=== PATIENT | female | born 1935 | race Caucasian/White ===

== ENCOUNTER → 2016-06-16 | Outpatient (CLI) | payer MEDICAID, MEDICARE ==
[~2016-06-16] MED LIST: REGADENOSON INJ 0.4 MG/5 ML DISP.SYRIN IV ONE
--- NOTE | 2016-06-16 20:49 | DRAGON STRESS TEST REPORT ---
Intravenous Lexiscan Cardiolite stress test using single photon emmision computerized tomography. Date of procedure: 06/16/2016. Ordering Provider: Dr. Vince Olivarez. Patient's status: Outpatient. Indication: Exertional Dyspnea.. Coronary risk factors: Age, hypertension, dyslipidemia, tobacco abuse disorder, history of the peripheral arterial disease , and family history of coronary artery disease/NM. Resting EKG: Sinus Rhythm. Within Normal Limits. Stress EKG: No changes of ischemia. The patient transient chest pressure without EKG changes. This was relieved with with Pepsi. There were no arrhythmias seen. Reason for termination: Protocol. Conclusions: Normal EKG and hemodynamic response to IV Lexiscan. Nuclear data: At rest the patient was given 10.46 millicuries of technetium 99m sestamibi injected intravenously. As per protocol rest non gated SPECT images were obtained. Subsequently the patient was given intravenous Lexiscan at a dose of 0.4 mg in 5 mL intravenously, followed by flush with normal saline. Subsequently the stress dose of 31.9 millicuries of technetium 99m sestamibi was injected intravenously. As per protocol stress gated images were obtained. Nuclear interpretation: Review of images showed that there was bowel contamination artifact of the inferior wall. But in spite of this all segments of the myocardium had normal perfusion at rest, and normal perfusion post stress with IV Lexiscan. All segments of the myocardium had normal motion, contraction, and thickening by gated study. T. I D. ratio was normal at 1.04. Computer read rest, and stress left ventricular ejection fraction were 74 %, and 73 %, respectively. Conclusion: 1. There is no scintigraphic evidence of Lexiscan induced myocardial ischemia. 2. There is no scintigraphic evidence of myocardial infarction/scar. Recommendations: Aggressive risk factor modification, and treating the underlying co- morbidities. MTDD
== END ==
LOC: RAD 07:23
PROVIDERS: ATTEND Internal Medicine
DX: R06.09 Other forms of dyspnea (principal)
CPT/HCPCS: 93017; 78452; A9500; J2785; Q9969

== ENCOUNTER → 2016-08-03 | Outpatient (CLI) | payer MEDICARE ==
[2016-08-03 17:35] LABS: ABSOLUTE BASOPHILS # (AUTO) 0.1 10^3/uL (0.0-0.2); ABSOLUTE EOSINOPHILS # (AUTO) 0.9 10^3/uL (0.0-0.6); ABSOLUTE LYMPHOCYTES (AUTO) 1.2 10^3/uL (0.5-4.7); ABSOLUTE MONOCYTES (AUTO) 0.4 10^3/uL (0.1-1.4); ABSOLUTE NEUT (AUTO) 2.6 10^3/uL (1.7-8.2); BASOPHILS % (AUTO) 1.1 % (0-2); EOSINOPHILS % (AUTO) 17.5 % (0-6); HEMATOCRIT 39.6 % (36.0-47.0); HEMOGLOBIN 13.2 g/dL (12.0-15.5); LYMPHOCYTES % (AUTO) 22.3 % (13-45); MEAN CORPUSCULAR HEMOGLOBIN 33.2 pg (27.0-33.4); MEAN CORPUSCULAR HGB CONC 33.4 g/dL (32.0-36.0); MEAN CORPUSCULAR VOLUME 99 fl (80-97); MONOCYTES % (AUTO) 8.1 % (3-13); RED BLOOD COUNT 3.98 10^6/uL (3.72-5.28); RED CELL DISTRIBUTION WIDTH 14.4 % (11.5-14.0); WHITE BLOOD COUNT 5.2 10^3/uL (4.0-10.5)
[2016-08-03 17:54] LABS: ALANINE AMINOTRANSFERASE 15 U/L (9-52); ALBUMIN 3.9 g/dL (3.5-5.0); ALKALINE PHOSPHATASE 88 U/L (38-126); ANION GAP 12 (5-19); ASPARTATE AMINO TRANSFERASE 19 U/L (14-36); BILIRUBIN,DIRECT 0.4 mg/dL (0.0-0.4); BILIRUBIN,TOTAL 0.8 mg/dL (0.2-1.3); BLOOD UREA NITROGEN 23 mg/dL (7-20); CALCIUM 9.3 mg/dL (8.4-10.2); CARBON DIOXIDE 24 mmol/L (22-30); CHLORIDE 107 mmol/L (98-107); CREATININE RESULT 1.17 mg/dL (0.52-1.25); GLUCOSE 90 mg/dL (75-110); SODIUM 142.8 mmol/L (137-145)
[2016-08-03 18:10] LABS: ERYTHROCYTE SEDIMENTATION RATE 18 mm/hr (0-30)
== END ==
LOC: OD 16:17
PROVIDERS: ATTEND Internal Medicine
DX: L50.9 Urticaria, unspecified (principal); M79.1 Myalgia; J44.9 Chronic obstructive pulmonary disease, unspecified; J30.9 Allergic rhinitis, unspecified; I10 Essential (primary) hypertension; E78.5 Hyperlipidemia, unspecified
CPT/HCPCS: 36415; 80053; 84443; 85025; 85652

== ENCOUNTER → 2017-05-18 | Outpatient (CLI) | payer MEDICARE ==
[2017-05-18 15:44] LABS: ABSOLUTE EOSINOPHILS # (AUTO) 0.3 10^3/uL (0.0-0.6); ABSOLUTE LYMPHOCYTES (AUTO) 0.9 10^3/uL (0.5-4.7); ABSOLUTE MONOCYTES (AUTO) 0.4 10^3/uL (0.1-1.4); ABSOLUTE NEUT (AUTO) 3.6 10^3/uL (1.7-8.2); BASOPHILS % (AUTO) 0.9 % (0-2); EOSINOPHILS % (AUTO) 5.7 % (0-6); HEMATOCRIT 41.4 % (36.0-47.0); LYMPHOCYTES % (AUTO) 17.8 % (13-45); MEAN CORPUSCULAR HEMOGLOBIN 31.9 pg (27.0-33.4); MEAN CORPUSCULAR HGB CONC 33.8 g/dL (32.0-36.0); MEAN CORPUSCULAR VOLUME 94 fl (80-97); MONOCYTES % (AUTO) 7.5 % (3-13); PLATELET COUNT 219 10^3/uL (150-450); RED BLOOD COUNT 4.39 10^6/uL (3.72-5.28); RED CELL DISTRIBUTION WIDTH 14.8 % (11.5-14.0); SEGMENTED NEUTROPHILS % (AUTO) 68.1 % (42-78); TOTAL CELLS COUNTED % (AUTO) 100 %; WHITE BLOOD COUNT 5.3 10^3/uL (4.0-10.5)
[2017-05-18 16:17] LABS: ALANINE AMINOTRANSFERASE 17 U/L (9-52); ALKALINE PHOSPHATASE 79 U/L (38-126); ANION GAP 11 (5-19); ASPARTATE AMINO TRANSFERASE 19 U/L (14-36); BILIRUBIN,DIRECT 0.5 mg/dL (0.0-0.4); BILIRUBIN,TOTAL 0.7 mg/dL (0.2-1.3); BLOOD UREA NITROGEN 13 mg/dL (7-20); CALCIUM 9.7 mg/dL (8.4-10.2); CARBON DIOXIDE 24 mmol/L (22-30); CHLORIDE 107 mmol/L (98-107); CHOLESTEROL 137.54 mg/dL (0-200); GLUCOSE 103 mg/dL (75-110); POTASSIUM 4.2 mmol/L (3.6-5.0); SODIUM 142.1 mmol/L (137-145); TOTAL PROTEIN 7.1 g/dL (6.3-8.2); TRIGLYCERIDES 155 mg/dL (<150)
[2017-05-18 16:28] LABS: DIRECT LDL 49 mg/dL (<100)
== END ==
LOC: OD 14:26
PROVIDERS: ATTEND Family Medicine Geriatric Medicine
DX: E03.9 Hypothyroidism, unspecified (principal); I10 Essential (primary) hypertension; E78.5 Hyperlipidemia, unspecified; R53.83 Other fatigue; J44.9 Chronic obstructive pulmonary disease, unspecified
CPT/HCPCS: 36415; 80053; 80061; 84443; 85025

== ENCOUNTER → 2017-09-08 | Outpatient (CLI) | payer MEDICARE ==
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
== END ==
LOC: OD 15:38
PROVIDERS: ATTEND Internal Medicine
DX: S22.32XA Fracture of one rib, left side, initial encounter for closed fracture (principal); W19.XXXA Unspecified fall, initial encounter

== ENCOUNTER 2017-10-13 09:21 | Inpatient (IN) | payer MEDICARE, OTHER ==
[2017-10-13] MEDS ORDERED: ASPIRIN 81 MG TABLET, CHEWABLE PO ONE (10:32)
[2017-10-13] MEDS ORDERED: IPRATROPIUM/ALBUTEROL 0.5-2.5 MG/3 ML AMPUL NEB ONE (10:34)
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
[2017-10-13 11:41] LABS: ABSOLUTE EOSINOPHILS # (AUTO) 0.2 10^3/uL (0.0-0.6); ABSOLUTE LYMPHOCYTES (AUTO) 0.9 10^3/uL (0.5-4.7); ABSOLUTE MONOCYTES (AUTO) 0.4 10^3/uL (0.1-1.4); ABSOLUTE NEUT (AUTO) 3.7 10^3/uL (1.7-8.2); BASOPHILS % (AUTO) 0.7 % (0-2); EOSINOPHILS % (AUTO) 4.6 % (0-6); HEMATOCRIT 37.2 % (36.0-47.0); HEMOGLOBIN 12.6 g/dL (12.0-15.5); LYMPHOCYTES % (AUTO) 17.2 % (13-45); MEAN CORPUSCULAR HEMOGLOBIN 32.3 pg (27.0-33.4); MEAN CORPUSCULAR HGB CONC 33.9 g/dL (32.0-36.0); MEAN CORPUSCULAR VOLUME 95 fl (80-97); MONOCYTES % (AUTO) 7.9 % (3-13); PLATELET COUNT 180 10^3/uL (150-450); RED BLOOD COUNT 3.92 10^6/uL (3.72-5.28); RED CELL DISTRIBUTION WIDTH 13.8 % (11.5-14.0); SEGMENTED NEUTROPHILS % (AUTO) 69.6 % (42-78); TOTAL CELLS COUNTED % (AUTO) 100 %; WHITE BLOOD COUNT 5.3 10^3/uL (4.0-10.5)
[2017-10-13 11:59] LABS: ALBUMIN 3.7 g/dL (3.5-5.0); ANION GAP 10 (5-19); ASPARTATE AMINO TRANSFERASE 24 U/L (14-36); BLOOD UREA NITROGEN 27 mg/dL (7-20); CALCIUM 9.1 mg/dL (8.4-10.2); CARBON DIOXIDE 27 mmol/L (22-30); CHLORIDE 105 mmol/L (98-107); GLUCOSE 143 mg/dL (75-110); POTASSIUM 3.3 mmol/L (3.6-5.0); SODIUM 142.3 mmol/L (137-145)
[2017-10-13 12:00] LABS: ALANINE AMINOTRANSFERASE 17 U/L (9-52); ALKALINE PHOSPHATASE 87 U/L (38-126); BILIRUBIN,DIRECT 0.3 mg/dL (0.0-0.4); BILIRUBIN,TOTAL 0.8 mg/dL (0.2-1.3); CREATINE KINASE 130 U/L (30-135)
[2017-10-13 12:11] LABS: CREATINE KINASE MB 3.34 ng/mL (<4.55)
[2017-10-13 12:12] LABS: TROPONIN I < 0.012 ng/mL
--- NOTE | 2017-10-13 12:12 | RADIOLOGY REPORT (SQ) ---
EXAM DESCRIPTION: CHEST 2 VIEWS COMPLETED DATE/TIME: 10/13/2017 12:01 pm REASON FOR STUDY: cough, cp COMPARISON: CT chest 10/08/2017 Left rib detail would PA chest 09/08/2017 Two-view chest 03/20/2013 EXAM PARAMETERS: NUMBER OF VIEWS: two views TECHNIQUE: Digital Frontal and Lateral radiographic views of the chest acquired. RADIATION DOSE: NA LIMITATIONS: none FINDINGS: LUNGS AND PLEURA: Pulmonary vascular prominence is present with Calos lines at both bases from mild interstitial pulmonary edema. Trace bilateral pleural effusions in the posterior costophrenic sulci. No dense consolidation worrisome for pneumonia. No pneumothorax. MEDIASTINUM AND HILAR STRUCTURES: No masses or contour abnormalities. HEART AND VASCULAR STRUCTURES: No cardiomegaly BONES: Osteoporotic without acute compression deformity. Stable T12 upper endplate compression HARDWARE: None in the chest. OTHER: No other significant finding. IMPRESSION: Pulmonary vascular congestion with mild interstitial pulmonary edema and trace pleural e ffusions TECHNICAL DOCUMENTATION: JOB ID: [id number] [employer]- All Rights Reserved Reading location - IP/workstation name: [email or web address]
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
[2017-10-13] MEDS ORDERED: POTASSIUM CHLORIDE 10 MEQ CAPSULE.ER PO ONE (12:31)
[2017-10-13 12:35] LABS: APPEARANCE,URINE CLEAR; BILIRUBIN,URINE NEGATIVE (NEGATIVE); GLUCOSE, URINE NEGATIVE (NEGATIVE); KETONES,URINE NEGATIVE (NEGATIVE); LEUKOCYTE ESTERASE,URINE NEGATIVE (NEGATIVE); NITRITE,URINE NEGATIVE (NEGATIVE); PROTEIN,URINE NEGATIVE (NEGATIVE); URINE SPECIFIC GRAVITY 1.024
[2017-10-13 12:44] LABS: COLOR,URINE YELLOW
--- NOTE | 2017-10-13 12:45 | EKG REPORT ---
SEVERITY:- ABNORMAL ECG - SINUS RHYTHM PROBABLE ANTEROSEPTAL INFARCT, AGE INDETERM PROLONGED QT INTERVAL : Confirmed by: Clay Vazquez MD 13-Oct-2017 12:45:01
[2017-10-13] MEDS ORDERED: RINGERS SOLUTION,LACTATED 500 ML IV ONE (13:10)
--- NOTE | 2017-10-13 13:18 | RADIOLOGY REPORT (SQ) ---
EXAM DESCRIPTION: U/S ABDOMEN LIMITED W/O DOP COMPLETED DATE/TIME: 10/13/2017 12:57 pm REASON FOR STUDY: epig, RUQ pain COMPARISON: None. TECHNIQUE: Dynamic and static grayscale images acquired of the abdomen and recorded on PACS. Leno sharmin selected color Doppler and spectral images recorded. LIMITATIONS: None. FINDINGS: PANCREAS: Not well seen. No masses are appreciated. LIVER: No masses. Echotexture normal. LIVER VASCULATURE: Normal directional flow of the main portal vein and hepatic veins. GALLBLADDER: No stones. Normal wall thickness. No pericholecystic fluid. ULTRASOUND-DETECTED WASHINGTON'S SIGN: Negative. INTRAHEPATIC DUCTS AND COMMON DUCT: CBD and intrahepatic ducts normal caliber. No filling defects. INFERIOR VENA CAVA: Not imaged. AORTA: There appears to be a 3.3 cm aneurysm of the mid abdominal aorta. RIGHT KIDNEY: Normal size, 9 cm. Normal echogenicity. No solid or suspicious masses. No hydronephros is. No calcifications. PERITONEAL AND RIGHT PLEURAL SPACE: No ascites or effusions. OTHER: No other significant findings. IMPRESSION: 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 TECHNICAL DOCUMENTATION: JOB ID: [id number] [employer]- All Rights Reserved Reading location - IP/workstation name: [email or web address]
[2017-10-13] MEDS ORDERED: FUROSEMIDE INJ/PF 20 MG/2 ML SDV IV ONE ×2 (14:15→15:39)
--- NOTE | 2017-10-13 17:32 | RADIOLOGY REPORT (SQ) ---
EXAM DESCRIPTION: CT HEAD WITHOUT COMPLETED DATE/TIME: 10/13/2017 5:18 pm REASON FOR STUDY: episodes of confusion COMPARISON: None. TECHNIQUE: Axial images acquired through the brain without intravenous contrast. Images reviewed wi th bone, brain and subdural windows. Additional sagittal and coronal reconstructions were generated. Images stored on PACS. All CT scanners at this facility use dose modulation, iterative reconstruction, and/or weight based d osing when appropriate to reduce radiation dose to as low as reasonably achievable (ALARA). [facility]: Dose Right [facility]: CareDose [facility]: Dose Right [facility]: Teradose 4D [facility]: Smart i'mma RADIATION DOSE: CT Rad equipment meets quality standard of care and radiation dose reduction techniq ues were employed. CTDIvol: 53.2 mGy. DLP: 1017 mGy-cm. mGy. LIMITATIONS: None. FINDINGS: VENTRICLES: Normal size and contour. CEREBRUM: Mild cortical atrophy. No masses. No hemorrhage. No midline shift. No evidence for acut e infarction. Few scattered areas of low density in the white matter most likely chronic small vessel ischemic changes. CEREBELLUM: No masses. No hemorrhage. No alteration of density. No evidence for acute infarction. EXTRAAXIAL SPACES: No fluid collections. No masses. ORBITS AND GLOBE: No intra- or extraconal masses. Normal contour of globe without masses. CALVARIUM: No fracture. PARANASAL SINUSES: No fluid or mucosal thickening. SOFT TISSUES: No mass or hematoma. OTHER: No other significant finding. IMPRESSION: MILD CHRONIC MICROVASCULAR ISCHEMIA. NO ACUTE IMAGING FINDINGS IN THE BRAIN. EVIDENCE OF ACUTE STROKE: NO. COMMENT: Quality ID # [id number]: Final reports with documentation of one or more dose reduction techniques (e.g., Automated exposure control, adjustment of the mA and/or kV according to patient size, use of iterative reconstruction technique) TECHNICAL DOCUMENTATION: JOB ID: [id number] [employer]- All Rights Reserved Reading location - IP/workstation name: [email or web address]
[2017-10-13] MEDS ORDERED: VERAPAMIL HCL 180 MG TABLET.SA PO ONE (17:40)
[2017-10-13 18:46] LABS: ARTERIAL BLOOD BASE EXCESS 3.1 mmol/L; ARTERIAL BLOOD H2CO3 1.02 mmol/L (1.05-1.35); ARTERIAL BLOOD HCO3 25.8 mmol/L (20-24); ARTERIAL BLOOD PCO2 33.9 mmHg (35-45); ARTERIAL BLOOD TOTAL CO2 26.8 mmol/L (21-25)
[2017-10-13 18:47] LABS: ARTERIAL BLOOD FIO2 ROOM AIR
[2017-10-13] MEDS ORDERED: MAG HYDROX/AL HYDROX/SIMETH SUSP 30 ML UDCUP PO PRN (20:08)
[2017-10-13] MEDS ORDERED: PROMETHAZINE HCL INJ 25 MG/1 ML VIAL IV PRN (20:08)
[2017-10-13] MEDS ORDERED: ONDANSETRON 4 MG TAB.RAPDIS PO PRN (20:08)
[2017-10-13] MEDS ORDERED: IPRATROPIUM/ALBUTEROL 0.5-2.5 MG/3 ML AMPUL NEB PRN (20:08)
[2017-10-13] MEDS ORDERED: NORMAL SALINE 1000 ML 1,000 ML IV PRN (20:08)
[2017-10-13] MEDS ORDERED: BISACODYL 5 MG TABEC PO PRN (20:39)
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
[2017-10-13] MEDS ORDERED: LACTULOSE SYRUP 20 GM/30 ML UDCUP PO ONE (21:00)
[2017-10-13] MEDS ORDERED: POTASSIUM CHLORIDE 20 MEQ/15 ML UDCUP PO ONE (21:30)
[2017-10-13] MEDS: NICOTINE 14 MG/24 HR PATCH.TD24 TD SCH (21:40)
[2017-10-14 07:38] LABS: ABSOLUTE EOSINOPHILS # (AUTO) 0.1 10^3/uL (0.0-0.6); ABSOLUTE LYMPHOCYTES (AUTO) 0.8 10^3/uL (0.5-4.7); ABSOLUTE MONOCYTES (AUTO) 0.5 10^3/uL (0.1-1.4); ABSOLUTE NEUT (AUTO) 4.9 10^3/uL (1.7-8.2); BASOPHILS % (AUTO) 0.7 % (0-2); EOSINOPHILS % (AUTO) 1.2 % (0-6); HEMATOCRIT 41.2 % (36.0-47.0); HEMOGLOBIN 14.2 g/dL (12.0-15.5); LYMPHOCYTES % (AUTO) 12.2 % (13-45); MEAN CORPUSCULAR HEMOGLOBIN 32.4 pg (27.0-33.4); MEAN CORPUSCULAR HGB CONC 34.6 g/dL (32.0-36.0); MEAN CORPUSCULAR VOLUME 94 fl (80-97); MONOCYTES % (AUTO) 7.4 % (3-13); PLATELET COUNT 170 10^3/uL (150-450); RED BLOOD COUNT 4.39 10^6/uL (3.72-5.28); RED CELL DISTRIBUTION WIDTH 13.7 % (11.5-14.0); SEGMENTED NEUTROPHILS % (AUTO) 78.5 % (42-78); TOTAL CELLS COUNTED % (AUTO) 100 %; WHITE BLOOD COUNT 6.2 10^3/uL (4.0-10.5)
[2017-10-14 07:59] LABS: ANION GAP 13 (5-19); BLOOD UREA NITROGEN 21 mg/dL (7-20); CALCIUM 9.5 mg/dL (8.4-10.2); CARBON DIOXIDE 23 mmol/L (22-30); CHLORIDE 108 mmol/L (98-107); GLUCOSE 121 mg/dL (75-110); PHOSPHORUS 3.5 mg/dL (2.5-4.5); POTASSIUM 3.8 mmol/L (3.6-5.0); SODIUM 143.5 mmol/L (137-145)
[2017-10-14 09:32] LABS: URINE AMPHETAMINES SCREEN NEGATIVE; URINE BARBITURATES SCREEN NEGATIVE; URINE BENZODIAZEPINES SCREEN NEGATIVE; URINE COCAINE SCREEN NEGATIVE; URINE MARIJUANA (THC) SCREEN NEGATIVE; URINE METHADONE SCREEN NEGATIVE; URINE PHENCYCLIDINE SCREEN NEGATIVE
[2017-10-14] MEDS: NICOTINE 14 MG/24 HR PATCH.TD24 TD SCH (10:24)
[2017-10-14] MEDS: ACETAMINOPHEN 325 MG TABLET PO PRN ×2 (10:24→22:25)
[2017-10-14] MEDS: ENOXAPARIN SODIUM INJ 40 MG/0.4 ML DISP.SYRIN SUBCUT SCH (10:25)
[2017-10-14] MEDS ORDERED: HYDROCHLOROTHIAZIDE 25 MG TABLET PO ONE (11:30)
[2017-10-14] MEDS ORDERED: VERAPAMIL HCL 180 MG TABLET.SA PO ONE (12:00)
[2017-10-14] MEDS: MORPHINE SULFATE 10 MG/ML INJ IV ONE ×2 (13:22→13:35)
[2017-10-14] MEDS ORDERED: HYDRALAZINE HCL 25 MG TABLET PO ONE ×2 (15:00→16:15)
[2017-10-14] MEDS ORDERED: AMLODIPINE BESYLATE 5 MG TABLET PO ONE (17:40)
[2017-10-14] MEDS ORDERED: (PENDING PHARMACY ID) (Zolpidem Tartrate [Ambien] 5 MG) PO PRN (18:25)
[2017-10-14] MEDS ORDERED: ZOLPIDEM TARTRATE 5 MG TABLET PO PRN (18:36)
[2017-10-14] MEDS: EZETIMIBE 10 MG TABLET PO SCH (22:22)
[2017-10-14] MEDS: SIMVASTATIN 10 MG TABLET PO SCH (22:23)
[2017-10-15] MEDS: LANSOPRAZOLE 30 MG TAB.RAP.DR PO SCH (06:39)
[2017-10-15] MEDS: LEVOTHYROXINE SODIUM 0.075 MG TABLET PO SCH (06:39)
[2017-10-15] MEDS: CILOSTAZOL 100 MG TABLET PO SCH ×2 (08:55→19:09)
[2017-10-15] MEDS: AMLODIPINE BESYLATE 10 MG TABLET PO SCH (09:36)
[2017-10-15] MEDS: NICOTINE 14 MG/24 HR PATCH.TD24 TD SCH (09:37)
[2017-10-15] MEDS: DULOXETINE HCL 30 MG CAPSULE.DR PO SCH (09:37)
[2017-10-15] MEDS: CELECOXIB 200 MG CAPSULE PO SCH (09:37)
[2017-10-15] MEDS: ENOXAPARIN SODIUM INJ 40 MG/0.4 ML DISP.SYRIN SUBCUT SCH (09:38)
[2017-10-15] MEDS ORDERED: EZETIMIBE PO SCH (10:00)
[2017-10-15] MEDS ORDERED: SIMVASTATIN PO SCH (10:00)
[2017-10-15] MEDS ORDERED: METOPROLOL SUCCINATE 50 MG TAB.SR.24H PO SCH (10:00)
[2017-10-15] MEDS ORDERED: LEVOFLOXACIN 500 MG/D5W RTU 500 MG/100 ML RTUPB IV ONE (10:50)
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
[2017-10-15] MEDS ORDERED: FUROSEMIDE INJ/PF 20 MG/2 ML SDV IV ONE (11:30)
[2017-10-15] MEDS: GUAIFENESIN 600 MG TABLET.SA PO SCH ×2 (12:21→19:09)
[2017-10-15] MEDS: LACTULOSE SYRUP 20 GM/30 ML UDCUP PO SCH ×3 (12:21→22:03)
--- NOTE | 2017-10-15 15:23 | RADIOLOGY REPORT (SQ) ---
EXAM DESCRIPTION: CTA CHEST COMPLETED DATE/TIME: 10/15/2017 2:31 pm REASON FOR STUDY: SOB I10 ESSENTIAL (PRIMARY) HYPERTENSION COMPARISON: 10/08/2017. TECHNIQUE: CT scan of the chest performed using helical scanning technique with dynamic intravenous contrast injection. Images reviewed with lung, soft tissue and bone windows. Reconstructed coronal and sagittal MPR images reviewed. Additional 3 dimensional post-processing performed to develop Maximal Intensity Projection images (CT P). All images stored on PACS. All CT scanners at this facility use dose modulation, iterative reconstruction, and/or weight based d osing when appropriate to reduce radiation dose to as low as reasonably achievable (ALARA). [facility]: Dose Right [facility]: CareDose [facility]: Dose Right [facility]: Teradose 4D [facility]: [place] CONTRAST TYPE AND DOSE: contrast/concentration: Isovue 350.00 mg/ml; Total Contrast Delivered: 68.0 ml; Total Saline Delivered: 108.0 ml Contrast bolus optimized for the pulmonary arteries. Not diagnostic for the aorta. RENAL FUNCTION: BUN 21 creatinine 0.87. RADIATION DOSE: CT Rad equipment meets quality standard of care and radiation dose reduction techniq ues were employed. CTDIvol: 14.3 - 33.1 mGy. DLP: 542 mGy-cm. . LIMITATIONS: Mild motion artifact. FINDINGS: LUNGS AND PLEURA: No masses, infiltrates, or pneumothorax. No pleural effusions or pleura l calcifications. AORTA AND GREAT VESSELS: No aneurysm. Contrast bolus not optimized for the aorta. HEART: No pericardial effusion. No significant coronary artery calcifications. PULMONARY ARTERIES: No emboli visualized in the main pulmonary arteries or the segmental branches. HILAR AND MEDIASTINAL STRUCTURES: No identified masses or abnormal nodes. HARDWARE: None in the chest. UPPER ABDOMEN: No significant findings. Limited exam. THYROID AND OTHER SOFT TISSUES: No masses. No adenopathy. BONES: No acute or significant finding. Degenerative changes in the spine. 3D MIPS: Confirm above findings. OTHER: No other significant finding. IMPRESSION: NORMAL CTA OF THE CHEST. NO PULMONARY EMBOLI. COMMENT: Quality ID # [id number]: Final reports with documentation of one or more dose reduction techniques (e.g., Automated exposure control, adjustment of the mA and/or kV according to patient size, use of iterative reconstruction technique) TECHNICAL DOCUMENTATION: JOB ID: [id number] ([employer]- All Rights Reserved Reading location - IP/workstation name: [email or web address]
[2017-10-15 16:35] LABS: ARTERIAL BLOOD BASE EXCESS 2.4 mmol/L; ARTERIAL BLOOD H2CO3 0.84 mmol/L (1.05-1.35); ARTERIAL BLOOD HCO3 23.5 mmol/L (20-24); ARTERIAL BLOOD O2 SATURATION 93.2 % (94-98); ARTERIAL BLOOD PH 7.54 (7.35-7.45); ARTERIAL BLOOD PO2 57.3 mmHg (80-100); ARTERIAL BLOOD TOTAL CO2 24.4 mmol/L (21-25)
[2017-10-15 16:37] LABS: ARTERIAL BLOOD FIO2 21%
[2017-10-15 16:48] LABS: APPEARANCE,URINE CLEAR; BILIRUBIN,URINE NEGATIVE (NEGATIVE); COLOR,URINE YELLOW; GLUCOSE, URINE NEGATIVE (NEGATIVE); KETONES,URINE NEGATIVE (NEGATIVE); LEUKOCYTE ESTERASE,URINE NEGATIVE (NEGATIVE); NITRITE,URINE NEGATIVE (NEGATIVE); PROTEIN,URINE 100 mg/dL (NEGATIVE); UROBILINOGEN,URINE NEGATIVE mg/dL (<2.0)
[2017-10-15] MEDS ORDERED: BISACODYL 10 MG SUPP.RECT PR ONE ×2 (17:00→20:00)
[2017-10-15] MEDS: EZETIMIBE 10 MG TABLET PO SCH (22:03)
[2017-10-15] MEDS: SIMVASTATIN 10 MG TABLET PO SCH (22:03)
[2017-10-16] MEDS: LACTULOSE SYRUP 20 GM/30 ML UDCUP PO SCH (06:09)
[2017-10-16] MEDS: LEVOTHYROXINE SODIUM 0.075 MG TABLET PO SCH (06:15)
[2017-10-16] MEDS: LANSOPRAZOLE 30 MG TAB.RAP.DR PO SCH (06:15)
[2017-10-16] MEDS: CILOSTAZOL 100 MG TABLET PO SCH (07:42)
[2017-10-16 07:57] LABS: ALANINE AMINOTRANSFERASE 31 U/L (9-52); ALBUMIN 4.3 g/dL (3.5-5.0); ALKALINE PHOSPHATASE 118 U/L (38-126); ANION GAP 16 (5-19); ASPARTATE AMINO TRANSFERASE 48 U/L (14-36); BILIRUBIN,DIRECT 0.4 mg/dL (0.0-0.4); BLOOD UREA NITROGEN 26 mg/dL (7-20); CALCIUM 10.3 mg/dL (8.4-10.2); CARBON DIOXIDE 21 mmol/L (22-30); CHLORIDE 104 mmol/L (98-107); GLUCOSE 128 mg/dL (75-110); POTASSIUM 3.3 mmol/L (3.6-5.0); TOTAL PROTEIN 8.3 g/dL (6.3-8.2)
[2017-10-16 08:00] LABS: ABSOLUTE LYMPHOCYTES (AUTO) 1.1 10^3/uL (0.5-4.7); ABSOLUTE MONOCYTES (AUTO) 0.7 10^3/uL (0.1-1.4); ABSOLUTE NEUT (AUTO) 6.3 10^3/uL (1.7-8.2); BASOPHILS % (AUTO) 0.6 % (0-2); EOSINOPHILS % (AUTO) 0.2 % (0-6); HEMATOCRIT 46.1 % (36.0-47.0); HEMOGLOBIN 15.7 g/dL (12.0-15.5); LYMPHOCYTES % (AUTO) 13.2 % (13-45); MEAN CORPUSCULAR HEMOGLOBIN 31.6 pg (27.0-33.4); MEAN CORPUSCULAR VOLUME 93 fl (80-97); MONOCYTES % (AUTO) 8.8 % (3-13); PLATELET COUNT 241 10^3/uL (150-450); RED BLOOD COUNT 4.96 10^6/uL (3.72-5.28); RED CELL DISTRIBUTION WIDTH 13.7 % (11.5-14.0); SEGMENTED NEUTROPHILS % (AUTO) 77.2 % (42-78); TOTAL CELLS COUNTED % (AUTO) 100 %; WHITE BLOOD COUNT 8.2 10^3/uL (4.0-10.5)
[2017-10-16] MEDS ORDERED: POTASSIUM CHLORIDE 10 MEQ CAPSULE.ER PO ONE (08:50)
[2017-10-16] MEDS ORDERED: LEVOFLOXACIN 500 MG TABLET PO SCH (10:00)
[2017-10-16] MEDS ORDERED: DOCUSATE SODIUM 100 MG CAPSULE PO SCH (10:00)
[2017-10-16] MEDS ORDERED: POLYETHYLENE GLYCOL 3350 POWDER 17 GM/1 PACKET PO SCH (10:00)
[2017-10-16] MEDS: AMLODIPINE BESYLATE 10 MG TABLET PO SCH (10:11)
[2017-10-16] MEDS: DULOXETINE HCL 30 MG CAPSULE.DR PO SCH (10:11)
[2017-10-16] MEDS: CELECOXIB 200 MG CAPSULE PO SCH (10:11)
[2017-10-16] MEDS: HYDROCHLOROTHIAZIDE 25 MG TABLET PO SCH (10:12)
[2017-10-16] MEDS: GUAIFENESIN 600 MG TABLET.SA PO SCH ×2 (10:12→17:48)
[2017-10-16] MEDS: NICOTINE 14 MG/24 HR PATCH.TD24 TD SCH (10:12)
[2017-10-16] MEDS: ENOXAPARIN SODIUM INJ 40 MG/0.4 ML DISP.SYRIN SUBCUT SCH (10:13)
[2017-10-16] MEDS: AZITHROMYCIN 250 MG TABLET PO SCH (10:15)
[2017-10-16] MEDS: METOPROLOL TARTRATE 100 MG TABLET PO SCH ×2 (10:15→22:26)
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
[2017-10-16] MEDS: PREDNISONE 20 MG TABLET PO SCH (12:16)
[2017-10-16] MEDS ORDERED: MEGESTROL ACETATE SUSP 400 MG/10 ML UDCUP PO ONE (17:00)
[2017-10-16] MEDS ORDERED: MIRTAZAPINE 15 MG TABLET PO SCH (22:00)
[2017-10-16] MEDS: EZETIMIBE 10 MG TABLET PO SCH (22:26)
[2017-10-16] MEDS: SIMVASTATIN 10 MG TABLET PO SCH (22:26)
[2017-10-17] MEDS: LANSOPRAZOLE 30 MG TAB.RAP.DR PO SCH (06:31)
[2017-10-17] MEDS: LEVOTHYROXINE SODIUM 0.075 MG TABLET PO SCH (06:31)
[2017-10-17 07:47] LABS: ABSOLUTE BASOPHILS # (AUTO) 0.1 10^3/uL (0.0-0.2); ABSOLUTE LYMPHOCYTES (AUTO) 1.6 10^3/uL (0.5-4.7); ABSOLUTE MONOCYTES (AUTO) 0.8 10^3/uL (0.1-1.4); ABSOLUTE NEUT (AUTO) 8.3 10^3/uL (1.7-8.2); BASOPHILS % (AUTO) 0.9 % (0-2); EOSINOPHILS % (AUTO) 0.1 % (0-6); HEMATOCRIT 47.3 % (36.0-47.0); HEMOGLOBIN 16.1 g/dL (12.0-15.5); LYMPHOCYTES % (AUTO) 14.7 % (13-45); MEAN CORPUSCULAR HEMOGLOBIN 32.1 pg (27.0-33.4); MEAN CORPUSCULAR HGB CONC 34.1 g/dL (32.0-36.0); MEAN CORPUSCULAR VOLUME 94 fl (80-97); MONOCYTES % (AUTO) 7.6 % (3-13); PLATELET COUNT 262 10^3/uL (150-450); RED BLOOD COUNT 5.01 10^6/uL (3.72-5.28); RED CELL DISTRIBUTION WIDTH 13.7 % (11.5-14.0); SEGMENTED NEUTROPHILS % (AUTO) 76.7 % (42-78); TOTAL CELLS COUNTED % (AUTO) 100 %; WHITE BLOOD COUNT 10.8 10^3/uL (4.0-10.5)
[2017-10-17 08:08] LABS: ALANINE AMINOTRANSFERASE 36 U/L (9-52); ALBUMIN 4.5 g/dL (3.5-5.0); ALKALINE PHOSPHATASE 117 U/L (38-126); ANION GAP 15 (5-19); ASPARTATE AMINO TRANSFERASE 52 U/L (14-36); BILIRUBIN,DIRECT 0.4 mg/dL (0.0-0.4); BILIRUBIN,TOTAL 0.9 mg/dL (0.2-1.3); BLOOD UREA NITROGEN 39 mg/dL (7-20); CALCIUM 10.1 mg/dL (8.4-10.2); CARBON DIOXIDE 23 mmol/L (22-30); CHLORIDE 104 mmol/L (98-107); GLUCOSE 107 mg/dL (75-110); POTASSIUM 3.5 mmol/L (3.6-5.0); SODIUM 141.5 mmol/L (137-145); TOTAL PROTEIN 8.6 g/dL (6.3-8.2)
[2017-10-17] MEDS ORDERED: MEGESTROL ACETATE SUSP 400 MG/10 ML UDCUP PO SCH (10:00)
[2017-10-17] MEDS: NORMAL SALINE 1000 ML 1,000 ML IV PRN (10:15)
[2017-10-17] MEDS: ENOXAPARIN SODIUM INJ 40 MG/0.4 ML DISP.SYRIN SUBCUT SCH (10:17)
[2017-10-17] MEDS: DULOXETINE HCL 30 MG CAPSULE.DR PO SCH (10:18)
[2017-10-17] MEDS: METOPROLOL TARTRATE 100 MG TABLET PO SCH ×2 (10:18→21:35)
[2017-10-17] MEDS: NICOTINE 14 MG/24 HR PATCH.TD24 TD SCH (10:18)
[2017-10-17] MEDS: GUAIFENESIN 600 MG TABLET.SA PO SCH ×2 (10:18→21:35)
[2017-10-17] MEDS: PREDNISONE 20 MG TABLET PO SCH (10:18)
[2017-10-17] MEDS: HYDROCHLOROTHIAZIDE 25 MG TABLET PO SCH (10:18)
[2017-10-17] MEDS: AMLODIPINE BESYLATE 10 MG TABLET PO SCH (10:19)
[2017-10-17] MEDS: AZITHROMYCIN 250 MG TABLET PO SCH (10:19)
[2017-10-17] MEDS: CELECOXIB 200 MG CAPSULE PO SCH (10:19)
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
[2017-10-17] MEDS ORDERED: PROMETHAZINE HCL INJ 25 MG/1 ML VIAL IV PRN (13:30)
--- NOTE | 2017-10-17 17:44 | RADIOLOGY REPORT (SQ) ---
EXAM DESCRIPTION: CT HEAD COMBO COMPLETED DATE/TIME: 10/17/2017 5:22 pm REASON FOR STUDY: possible concussion I10 ESSENTIAL (PRIMARY) HYPERTENSION COMPARISON: 06/14/2017 TECHNIQUE: Axial images acquired through the brain without and with intravenous contrast. Images re viewed with bone, brain, and subdural windows. Additional sagittal and coronal reconstructions were generated. Images stored on PACS. All CT scanners at this facility use dose modulation, iterative reconstruction, and/or weight based d osing when appropriate to reduce radiation dose to as low as reasonably achievable (ALARA). [facility]: Dose Right [facility]: CareDose [facility]: Dose Right [facility]: Teradose 4D [facility]: [employer] CONTRAST TYPE AND DOSE: contrast/concentration: Isovue 350.00 mg/ml; Total Contrast Delivered: 50.0 ml; Total Saline Delivered: 45.0 ml RENAL FUNCTION: Creatinine 1.16 RADIATION DOSE: CT Rad equipment meets quality standard of care and radiation dose reduction techniq ues were employed. CTDIvol: 53.2 - 67.0 mGy. DLP: 3180 mGy-cm.. LIMITATIONS: None. FINDINGS: VENTRICLES: Prominent. CEREBRUM: No masses. No hemorrhage. No midline shift. A few areas of low density in the white caryl er most likely due to chronic micro-vascular ischemic change. No evidence for acute infarction. No enhancing lesions. No abnormal enhancement. CEREBELLUM: No masses. No hemorrhage. No alteration of density. No evidence for acute infarction. No enhancing lesions. EXTRAAXIAL SPACES: Mild age-related involutional change. No fluid collections. No masses. No enhan cing lesions. ORBITS AND GLOBE: No intra- or extraconal masses. Normal contour of globe without masses. CALVARIUM: No fracture. PARANASAL SINUSES: No fluid or mucosal thickening. SOFT TISSUES: No mass or hematoma. OTHER: No other significant finding. IMPRESSION: MILD CHRONIC CHANGES OF ATROPHY AND MICROVASCULAR ISCHEMIA. NO ACUTE PROCESS. NO ENHAN CING LESIONS. NO ABNORMAL ENHANCEMENT. EVIDENCE OF ACUTE STROKE: NO. TECHNICAL DOCUMENTATION: JOB ID: [id number] Quality ID # [id number]: Final reports with documentation of one or more dose reduction techniques (e.g., Au tomated exposure control, adjustment of the mA and/or kV according to patient size, use of iterative reconstruction technique) 2010 [employer]- All Rights Reserved Reading location - IP/workstation name: [email or web address]
[2017-10-17] MEDS: EZETIMIBE 10 MG TABLET PO SCH (21:35)
[2017-10-17] MEDS: SIMVASTATIN 10 MG TABLET PO SCH (21:36)
[2017-10-18] MEDS: LEVOTHYROXINE SODIUM 0.075 MG TABLET PO SCH (06:20)
[2017-10-18] MEDS: LANSOPRAZOLE 30 MG TAB.RAP.DR PO SCH (06:20)
--- NOTE | 2017-10-18 07:59 | PDOC PROGRESS REPORT ---
Subjective Progress Note for:: 10/18/17 Subjective:: The patient appears to be slightly better. Her CAT scan of the brain did not show any significant abnormalities except for chronic microvascular ischemia. I presume it is dementia with worsening most probably from concussion Reason For Visit: AMS, PNEUMONIA Physical Exam Vital Signs: Temp Pulse Resp BP Pulse Ox 97.6 F 80 19 152/74 H 94 10/18/17 07:19 10/18/17 07:19 10/18/17 07:19 10/18/17 07:19 10/18/17 07:19 Intake & Output 10/17/17 10/18/17 10/19/17 06:59 06:59 06:59 Intake Total 1118 450 Balance 1118 450 Weight 64.4 kg 67.3 kg General appearance: PRESENT: mild distress Head exam: ABSENT: atraumatic Eye exam: PRESENT: conjunctival injection Neck exam: PRESENT: carotid bruit. ABSENT: JVD Respiratory exam: PRESENT: rhonchi Cardiovascular exam: PRESENT: RRR, +S1, +S2 Pulses: PRESENT: +1 pedal pulses bilateral Neurological exam: PRESENT: alert, awake Psychiatric exam: PRESENT: depressed, flat affect Results Laboratory Results: 10/17/17 07:08 10/17/17 07:08 10/17/17 07:08 Sodium 141.5 Potassium 3.5 L Chloride 104 Carbon Dioxide 23 Anion Gap 15 BUN 39 H Creatinine 1.16 Est GFR ( Amer) 54 L Est GFR (Non-Af Amer) 45 L Glucose 107 Calcium 10.1 Total Bilirubin 0.9 AST 52 H ALT 36 Alkaline Phosphatase 117 Total Protein 8.6 H Albumin 4.5 Impressions: Abdomen Ultrasound 10/13/17 10:33 IMPRESSION: 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 Chest X-Ray 10/13/17 10:33 IMPRESSION: Pulmonary vascular congestion with mild interstitial pulmonary edema and trace pleural effusions Abdomen X-Ray 10/13/17 10:35 IMPRESSION: Moderate stool in the transverse colon. Calos lines at both bases from mild interstitial edema Chest/Abdomen CTA 10/15/17 00:00 IMPRESSION: NORMAL CTA OF THE CHEST. NO PULMONARY EMBOLI. Head CT 10/17/17 00:00 IMPRESSION: MILD CHRONIC CHANGES OF ATROPHY AND MICROVASCULAR ISCHEMIA. NO ACUTE PROCESS. NO ENHANCING LESIONS. NO ABNORMAL ENHANCEMENT. EVIDENCE OF ACUTE STROKE: NO. Assessment & Plan - Diagnosis (1) Acute encephalopathy Is this a current diagnosis for this admission?: Yes Plan: Improving slowly (2) Altered mental status Qualifiers: Altered mental status type: disorientation Qualified Code(s): R41.0 - Disorientation, unspecified Is this a current diagnosis for this admission?: Yes Plan: Improving slowly (3) COPD exacerbation Is this a current diagnosis for this admission?: Yes Plan: We will add Rocephin. (4) Hypertension Is this a current diagnosis for this admission?: Yes Plan: Continue current medications (5) Hypokalemia Is this a current diagnosis for this admission?: Yes Plan: We will supplement potassium (6) Tobacco dependence Is this a current diagnosis for this admission?: Yes Plan: Continue with nicotine patch
[2017-10-18] MEDS: NORMAL SALINE 1000 ML 1,000 ML IV PRN ×2 (08:09→22:06)
[2017-10-18] MEDS ORDERED: CEFTRIAXONE 1 GM/D5W RTU 50 ML IV SCH (10:00)
[2017-10-18] MEDS ORDERED: CEFTRIAXONE SODIUM 1,000 MG in NORMAL SALINE 50 ML IV SCH (10:00)
[2017-10-18] MEDS: DULOXETINE HCL 30 MG CAPSULE.DR PO SCH (10:16)
[2017-10-18] MEDS: GUAIFENESIN 600 MG TABLET.SA PO SCH ×2 (10:16→22:03)
[2017-10-18] MEDS: AMLODIPINE BESYLATE 10 MG TABLET PO SCH (10:16)
[2017-10-18] MEDS: AZITHROMYCIN 250 MG TABLET PO SCH (10:17)
[2017-10-18] MEDS: HYDROCHLOROTHIAZIDE 25 MG TABLET PO SCH (10:17)
[2017-10-18] MEDS: CELECOXIB 200 MG CAPSULE PO SCH (10:17)
[2017-10-18] MEDS: NICOTINE 14 MG/24 HR PATCH.TD24 TD SCH (10:17)
[2017-10-18] MEDS: METOPROLOL TARTRATE 100 MG TABLET PO SCH ×2 (10:17→22:03)
[2017-10-18] MEDS: ENOXAPARIN SODIUM INJ 40 MG/0.4 ML DISP.SYRIN SUBCUT SCH (10:22)
[2017-10-18 13:21] LABS: ARTERIAL BLOOD H2CO3 0.86 mmol/L (1.05-1.35); ARTERIAL BLOOD PCO2 28.7 mmHg (35-45); ARTERIAL BLOOD PH 7.48 (7.35-7.45); ARTERIAL BLOOD TOTAL CO2 21.9 mmol/L (21-25)
[2017-10-18 13:22] LABS: ARTERIAL BLOOD BASE EXCESS -1.1 mmol/L; ARTERIAL BLOOD FIO2 ROOM AIR; ARTERIAL BLOOD O2 SATURATION 94.8 % (94-98)
[2017-10-18 20:13] VITALS: BP 138/62
[2017-10-18] MEDS: EZETIMIBE 10 MG TABLET PO SCH (22:03)
[2017-10-18] MEDS: SIMVASTATIN 10 MG TABLET PO SCH (22:03)
== END 2017-10-19 02:20 | disposition short-term general hospital (02) | DRG 71 ==
LOC: ER 09:21 → INTOOBSV 18:08 → EH 18:08 → 3S 10-14 20:08 → OBSVTOIN 10-16 07:26
PROVIDERS: ADMIT Internal Medicine; ATTEND Internal Medicine
DX: G93.49 Other encephalopathy (principal); J44.1 Chronic obstructive pulmonary disease with (acute) exacerbation; S06.0X9D Concussion with loss of consciousness of unspecified duration, subsequent encounter; E87.6 Hypokalemia; K59.00 Constipation, unspecified; I50.9 Heart failure, unspecified; F17.210 Nicotine dependence, cigarettes, uncomplicated; I11.0 Hypertensive heart disease with heart failure; M54.5 Low back pain; G89.29 Other chronic pain; G47.00 Insomnia, unspecified; I71.4 Abdominal aortic aneurysm, without rupture; R00.0 Tachycardia, unspecified; E78.5 Hyperlipidemia, unspecified; E03.9 Hypothyroidism, unspecified; Z90.710 Acquired absence of both cervix and uterus; Z88.6 Allergy status to analgesic agent
CPT/HCPCS: 36415; 36600; 70450; 70470; 71046; 71275; 74019; 76705; 80048; 80053; 80307; 81001; 82140; 82272; 82550; 82553; 82803; 83690; 83735; 83880; 84100; 84443; 84484; 85025; 87045; 87070; 87205; 87493; 89055; 93005; 93010; 94640; 96374; 96376; 99285; G8978-GP; G8979-GP; J0696; J1650; J1940; J1956; J2270; J3490; J7030; J7512; J7620

== ENCOUNTER → 2018-01-05 | Outpatient (CLI) | payer MEDICARE ==
[2018-01-05 15:27] LABS: ABSOLUTE BASOPHILS # (AUTO) 0.1 10^3/uL (0.0-0.2); ABSOLUTE EOSINOPHILS # (AUTO) 0.2 10^3/uL (0.0-0.6); ABSOLUTE LYMPHOCYTES (AUTO) 1.2 10^3/uL (0.5-4.7); ABSOLUTE MONOCYTES (AUTO) 0.4 10^3/uL (0.1-1.4); ABSOLUTE NEUT (AUTO) 2.7 10^3/uL (1.7-8.2); BASOPHILS % (AUTO) 1.2 % (0-2); EOSINOPHILS % (AUTO) 4.7 % (0-6); HEMATOCRIT 38.8 % (36.0-47.0); HEMOGLOBIN 13.1 g/dL (12.0-15.5); LYMPHOCYTES % (AUTO) 26.2 % (13-45); MEAN CORPUSCULAR HEMOGLOBIN 33.5 pg (27.0-33.4); MEAN CORPUSCULAR HGB CONC 33.9 g/dL (32.0-36.0); MEAN CORPUSCULAR VOLUME 99 fl (80-97); MONOCYTES % (AUTO) 8.3 % (3-13); PLATELET COUNT 196 10^3/uL (150-450); RED BLOOD COUNT 3.92 10^6/uL (3.72-5.28); RED CELL DISTRIBUTION WIDTH 16.3 % (11.5-14.0); SEGMENTED NEUTROPHILS % (AUTO) 59.6 % (42-78); TOTAL CELLS COUNTED % (AUTO) 100 %; WHITE BLOOD COUNT 4.5 10^3/uL (4.0-10.5)
[2018-01-05 15:40] LABS: CRYPTOSPORIDIUM PARVUM AG NEGATIVE (NEGATIVE); GIARDIA LAMBLIA AG NEGATIVE (NEGATIVE)
[2018-01-05 15:47] LABS: ALANINE AMINOTRANSFERASE 23 U/L (9-52); ALKALINE PHOSPHATASE 84 U/L (38-126); ANION GAP 11 (5-19); ASPARTATE AMINO TRANSFERASE 26 U/L (14-36); BILIRUBIN,DIRECT 0.3 mg/dL (0.0-0.4); BILIRUBIN,TOTAL 0.6 mg/dL (0.2-1.3); BLOOD UREA NITROGEN 11 mg/dL (7-20); CALCIUM 9.5 mg/dL (8.4-10.2); CARBON DIOXIDE 25 mmol/L (22-30); CHLORIDE 109 mmol/L (98-107); GLUCOSE 123 mg/dL (75-110); POTASSIUM 3.8 mmol/L (3.6-5.0); SODIUM 145.4 mmol/L (137-145); TOTAL PROTEIN 6.9 g/dL (6.3-8.2)
== END ==
LOC: OD 14:14
PROVIDERS: ATTEND Internal Medicine
DX: I10 Essential (primary) hypertension (principal); E78.5 Hyperlipidemia, unspecified; R53.83 Other fatigue
CPT/HCPCS: 36415; 80053; 84443; 85025; 86403; 87045; 87205; 87329; 87493

== ENCOUNTER → 2018-07-05 | Outpatient (CLI) | payer MEDICARE ==
[2018-07-05 10:59] LABS: ABSOLUTE BASOPHILS # (AUTO) 0.1 10^3/uL (0.0-0.2); ABSOLUTE EOSINOPHILS # (AUTO) 0.2 10^3/uL (0.0-0.6); ABSOLUTE LYMPHOCYTES (AUTO) 1.1 10^3/uL (0.5-4.7); ABSOLUTE MONOCYTES (AUTO) 0.4 10^3/uL (0.1-1.4); ABSOLUTE NEUT (AUTO) 4.3 10^3/uL (1.7-8.2); BASOPHILS % (AUTO) 0.9 % (0-2); EOSINOPHILS % (AUTO) 2.9 % (0-6); HEMATOCRIT 41.4 % (36.0-47.0); HEMOGLOBIN 13.7 g/dL (12.0-15.5); LYMPHOCYTES % (AUTO) 17.7 % (13-45); MEAN CORPUSCULAR HEMOGLOBIN 32.5 pg (27.0-33.4); MEAN CORPUSCULAR HGB CONC 33.1 g/dL (32.0-36.0); MEAN CORPUSCULAR VOLUME 98 fl (80-97); MONOCYTES % (AUTO) 7.1 % (3-13); PLATELET COUNT 200 10^3/uL (150-450); RED BLOOD COUNT 4.22 10^6/uL (3.72-5.28); SEGMENTED NEUTROPHILS % (AUTO) 71.4 % (42-78); TOTAL CELLS COUNTED % (AUTO) 100 %; WHITE BLOOD COUNT 5.9 10^3/uL (4.0-10.5)
[2018-07-05 11:33] LABS: ALANINE AMINOTRANSFERASE 15 U/L (9-52); ALBUMIN 4.3 g/dL (3.5-5.0); ALKALINE PHOSPHATASE 113 U/L (38-126); ANION GAP 13 (5-19); ASPARTATE AMINO TRANSFERASE 18 U/L (14-36); BILIRUBIN,DIRECT 0.2 mg/dL (0.0-0.4); BILIRUBIN,TOTAL 0.3 mg/dL (0.2-1.3); BLOOD UREA NITROGEN 16 mg/dL (7-20); CALCIUM 9.7 mg/dL (8.4-10.2); CARBON DIOXIDE 23 mmol/L (22-30); CHLORIDE 109 mmol/L (98-107); CHOLESTEROL 204.95 mg/dL (0-200); GLUCOSE 105 mg/dL (75-110); POTASSIUM 4.9 mmol/L (3.6-5.0); SODIUM 144.7 mmol/L (137-145); TOTAL PROTEIN 7.4 g/dL (6.3-8.2); TRIGLYCERIDES 205 mg/dL (<150)
[2018-07-05 11:44] LABS: DIRECT LDL 104 mg/dL (<100)
== END ==
LOC: OD 09:49
PROVIDERS: ATTEND Internal Medicine
DX: E03.9 Hypothyroidism, unspecified (principal); J44.9 Chronic obstructive pulmonary disease, unspecified; K21.9 Gastro-esophageal reflux disease without esophagitis
CPT/HCPCS: 36415; 80053; 80061; 84443; 85025

== ENCOUNTER 2018-07-29 10:33 | Inpatient (IN) | payer MEDICARE ==
[2018-07-29] MEDS ORDERED: NORMAL SALINE 1000 ML 1,000 ML IV ONE (10:41)
--- NOTE | 2018-07-29 10:53 | ER Document Report ---
ED General - General Chief Complaint: Altered Mental Status Stated Complaint: ALTERED MENTAL STATUS Time Seen by Provider: 07/29/18 10:40 Primary Care Provider: NORAH GUIDO MD [Primary Care Provider] - Follow up as needed Information source: Emergency Med Personnel Notes: 82-year-old female who according to EMS lives at home with the family and has been "acting strange" over the last 2 days. Supposedly a decline in mental status and ambulation. Normally is oriented x4. No report according to family of vomiting, diarrhea, cough, or complaints of pain. EMS states the patient's temperature was 100.4 when they arrived. She was somnolent when aroused became extremely aggressive. The escalated dosages of medications including Ativan, Haldol, and then ketamine 400 mg IM. TRAVEL OUTSIDE OF THE [place] IN LAST 30 DAYS: No - Related Data Allergies/Adverse Reactions: ibuprofen Allergy (Verified 10/13/17 17:15) Past Medical History - Social History Smoking Status: Unknown if Ever Smoked Family History: Reviewed & Not Pertinent - Past Medical History Cardiac Medical History: Reports: Hx Hypercholesterolemia, Hx Hypertension Denies: Hx Heart Attack Pulmonary Medical History: Denies: Hx Asthma Neurological Medical History: Denies: Hx Cerebrovascular Accident, Hx Seizures Endocrine Medical History: Reports: Hx Hypothyroidism Renal/ Medical History: Denies: Hx Peritoneal Dialysis GI Medical History: Denies: Hx Hepatitis, Hx Hiatal Hernia, Hx Ulcer Psychiatric Medical History: Reports: Hx Depression Infectious Medical History: Denies: Hx Hepatitis Past Surgical History: Reports: Hx Hysterectomy, Hx Orthopedic Surgery - back surgery, Hx Vascular Surgery - leg stent. Denies: Hx Mastectomy, Hx Open Heart Surgery, Hx Pacemaker - Immunizations Immunizations up to date: Yes Hx Diphtheria, Pertussis, Tetanus Vaccination: Yes Review of Systems - Review of Systems -: Yes ROS unobtainable due to patient's medical condition Physical Exam - Vital signs Vitals: Resp Pulse Ox 23 H 91 L 07/29/18 10:45 07/29/18 10:45 Notes: Reviewed vital signs and nursing note as charted by RN. CONSTITUTIONAL: Patient is somnolent and withdraws slightly from pain. She has just been given 400 mg of IM ketamine. She is breathing spontaneously HEAD: Normocephalic; atraumatic EYES: Pinpoint bilaterally; Conjunctivae clear, sclerae non-icteric ENT: Normal nose; no rhinorrhea; dry mucous membranes; pharynx without lesions noted NECK: Supple without meningismus; no cervical lymphadenopathy, no masses CARD: Regular rate and rhythm; no murmurs; symmetric distal pulses RESP: Normal chest excursion without splinting or tachypnea; breath sounds clear and equal bilaterally; no wheezes, no rhonchi, no rales ABD/GI: Normal bowel sounds; non-distended; soft, no abdominal bruits; no palpable organomegaly or masses BACK: The back appears normal without swelling, erythema, or induration EXT: No edema SKIN: No acute lesions noted NEURO: Patient intermittently moves extremities Course - Re-evaluation Re-evalutation: 07/29/18 10:52 Given the history and physical examination with altered mental status, slight fever, dry mucous membranes, I reviewed the patient's medication list. I do not see any anticholinergic medications listed. Patient appears to be protecting her airway and we have elevated the head of the bed 30 degrees. We will obtain CT scan of the head, basic labs, provide fluids, catheterized urine, chest x- ray, EKG, and reassess. I would like to evaluate the possibility of infection, intracranial abnormality, severe dehydration or elect light abnormality, or other acute problems. 07/29/18 11:07 Patient's Sister Liyah at phone #[phone] is currently in the room. It appears that the patient actually does live alone. Multiple family members live in the very near vicinity. Patient supposedly was acting normal as EMS states until 2 days ago. The patient's sister states the patient actually was having some confusion 2 days ago. Yesterday she went to the grocery store with the patient and she was being very forgetful. She states she came to the patient's house today and walked into the room finding that the patient did not put away her groceries from yesterday. She was not easily arousable according to the sister. EMS was called. She also states the patient has had no recent illnesses. Patient is a patient of Dr. Guido. Patient supposedly has recovered from a bout of prolonged diarrhea around 6 weeks ago after following up with the rug shampooer. 07/29/18 11:19 EKG shows a heart rate of 108, sinus tachycardia, minimal LVH, narrow QRS, no ST elevation or depression. 07/29/18 12:37 Given the history of rods in the patient's back, with altered mental status, I have added a coagulation profile and discussed the case with the hospitalist. I am hesitant to perform a lumbar puncture given the patient's anatomy with the change in mental status. I spoke with radiology about performing this under fluoroscopy. - Vital Signs Vital signs: Temp Pulse Resp BP Pulse Ox 100.3 F 16 145/76 H 92 07/29/18 11:52 07/29/18 11:26 07/29/18 11:26 07/29/18 11:26 - Laboratory Result Diagrams: 07/29/18 10:42 07/29/18 10:42 Laboratory results interpreted by me: 07/29/18 07/29/18 07/29/18 10:42 10:42 10:42 WBC 10.7 H Seg Neuts % (Manual) 85 H Lymphocytes % (Manual) 11 L Abs Neuts (Manual) 9.1 H Est GFR (Non-Af Amer) 54 L Glucose 144 H Total Bilirubin 1.4 H AST 54 H ALT 53 H Creatine Kinase 176 H TSH 13.00 H Urine Protein Urine Blood 07/29/18 10:50 WBC Seg Neuts % (Manual) Lymphocytes % (Manual) Abs Neuts (Manual) Est GFR (Non-Af Amer) Glucose Total Bilirubin AST ALT Creatine Kinase TSH Urine Protein >=500 H Urine Blood SMALL H Critical Care Note - Critical Care Note Total time excluding time spent on procedures (mins): 40 Discharge - Discharge Clinical Impression: Altered mental status, unspecified Qualifiers: Altered mental status type: unspecified Qualified Code(s): R41.82 - Altered mental status, unspecified Fever Qualifiers: Fever type: unspecified Qualified Code(s): R50.9 - Fever, unspecified Condition: Fair Disposition: ADMITTED INPATIENT Admitting Provider: Misa (Hospitalist) Unit Admitted: [facility] Referrals: NORAH GUIDO MD [Primary Care Provider] - Follow up as needed
[2018-07-29 11:28] LABS: APPEARANCE,URINE SLIGHTLY-CLOUDY; BILIRUBIN,URINE NEGATIVE (NEGATIVE); COLOR,URINE YELLOW; GLUCOSE, URINE NEGATIVE (NEGATIVE); KETONES,URINE NEGATIVE (NEGATIVE); LEUKOCYTE ESTERASE,URINE NEGATIVE (NEGATIVE); NITRITE,URINE NEGATIVE (NEGATIVE); PROTEIN,URINE >=500 mg/dL (NEGATIVE); URINE SPECIFIC GRAVITY 1.026; UROBILINOGEN,URINE NEGATIVE mg/dL (<2.0)
[2018-07-29 11:36] LABS: ALANINE AMINOTRANSFERASE 53 U/L (9-52); ALBUMIN 4.3 g/dL (3.5-5.0); ALKALINE PHOSPHATASE 107 U/L (38-126); ANION GAP 10 (5-19); ASPARTATE AMINO TRANSFERASE 54 U/L (14-36); BILIRUBIN,DIRECT 0.3 mg/dL (0.0-0.4); BILIRUBIN,TOTAL 1.4 mg/dL (0.2-1.3); BLOOD UREA NITROGEN 19 mg/dL (7-20); CALCIUM 9.6 mg/dL (8.4-10.2); CARBON DIOXIDE 24 mmol/L (22-30); CHLORIDE 107 mmol/L (98-107); CREATINE KINASE 176 U/L (30-135); GLUCOSE 144 mg/dL (75-110); LIPASE 61.4 U/L (23-300); POTASSIUM 3.6 mmol/L (3.6-5.0); SODIUM 141.3 mmol/L (137-145); TOTAL PROTEIN 7.5 g/dL (6.3-8.2)
[2018-07-29 12:06] LABS: HEMATOCRIT 43.8 % (36.0-47.0); HEMOGLOBIN 14.9 g/dL (12.0-15.5); MEAN CORPUSCULAR HEMOGLOBIN 32.5 pg (27.0-33.4); MEAN CORPUSCULAR HGB CONC 33.9 g/dL (32.0-36.0); MEAN CORPUSCULAR VOLUME 96 fl (80-97); PLATELET COUNT 248 10^3/uL (150-450); RED BLOOD COUNT 4.57 10^6/uL (3.72-5.28); RED CELL DISTRIBUTION WIDTH 13.7 % (11.5-14.0); WHITE BLOOD COUNT 10.7 10^3/uL (4.0-10.5)
--- NOTE | 2018-07-29 12:10 | EKG REPORT ---
SEVERITY:- ABNORMAL ECG - SINUS TACHYCARDIA CONSIDER LEFT VENTRICULAR HYPERTROPHY BORDERLINE PROLONGED QT INTERVAL : Confirmed by: Dina Jauregui MD 29-Jul-2018 12:09:24
--- NOTE | 2018-07-29 12:11 | RADIOLOGY REPORT (SQ) ---
EXAM DESCRIPTION: CHEST SINGLE VIEW COMPLETED DATE/TIME: 07/29/2018 11:46 am REASON FOR STUDY: 17; ams COMPARISON: 10/13/2017 EXAM PARAMETERS: NUMBER OF VIEWS: One view. TECHNIQUE: Single frontal radiographic view of the chest acquired. RADIATION DOSE: NA LIMITATIONS: None. FINDINGS: LUNGS AND PLEURA: No opacities, masses or pneumothorax. No pleural effusion. MEDIASTINUM AND HILAR STRUCTURES: No masses. Contour normal. HEART AND VASCULAR STRUCTURES: Heart normal in size. Normal vasculature. BONES: No acute findings. HARDWARE: None in the chest. OTHER: No other significant finding. IMPRESSION: NO ACUTE RADIOGRAPHIC FINDING IN THE CHEST. TECHNICAL DOCUMENTATION: JOB ID: [id number] [employer]- All Rights Reserved Reading location - IP/workstation name: [email or web address]
--- NOTE | 2018-07-29 12:12 | RADIOLOGY REPORT (SQ) ---
EXAM DESCRIPTION: CT HEAD WITHOUT COMPLETED DATE/TIME: 07/29/2018 11:46 am REASON FOR STUDY: 17; ams COMPARISON: 10/17/2017 TECHNIQUE: Axial images acquired through the brain without intravenous contrast. Images reviewed wi th bone, brain and subdural windows. Additional sagittal and coronal reconstructions were generated. Images stored on PACS. All CT scanners at this facility use dose modulation, iterative reconstruction, and/or weight based d osing when appropriate to reduce radiation dose to as low as reasonably achievable (ALARA). [facility]: Dose Right [facility]: CareDose [facility]: Dose Right [facility]: Teradose 4D [facility]: [employer] RADIATION DOSE: CT Rad equipment meets quality standard of care and radiation dose reduction techniq ues were employed. CTDIvol: 53.2 mGy. DLP: 1017 mGy-cm. mGy. LIMITATIONS: None. FINDINGS: VENTRICLES: Prominent. CEREBRUM: No masses. No hemorrhage. No midline shift. Areas of low density in the white matter mos t likely due to chronic micro-vascular ischemic change. No evidence for acute infarction. CEREBELLUM: No masses. No hemorrhage. No alteration of density. No evidence for acute infarction. EXTRAAXIAL SPACES: Mild age-related involutional change. No fluid collections. No masses. ORBITS AND GLOBE: No intra- or extraconal masses. Normal contour of globe without masses. CALVARIUM: No fracture. PARANASAL SINUSES: No fluid or mucosal thickening. SOFT TISSUES: No mass or hematoma. OTHER: No other significant finding. IMPRESSION: MILD CHRONIC CHANGES OF ATROPHY AND MICROVASCULAR ISCHEMIA. NO ACUTE PROCESS. EVIDENCE OF ACUTE STROKE: NO. TECHNICAL DOCUMENTATION: JOB ID: [id number] Quality ID # [id number]: Final reports with documentation of one or more dose reduction techniques (e.g., Au tomated exposure control, adjustment of the mA and/or kV according to patient size, use of iterative reconstruction technique) 2010 [email or web address]- All Rights Reserved Reading location - IP/workstation name: [email or web address]
[2018-07-29] MEDS ORDERED: PIPERACILLIN/TAZOBACTAM 3.375 GM VIAL IV ONE (12:24)
[2018-07-29] MEDS ORDERED: CEFTRIAXONE 2 GM/D5W RTU 2 GM/50 ML RTUPB IV ONE (12:24)
[2018-07-29] MEDS ORDERED: LIDOCAINE 1%/EPINEPHRINE INJ 20 ML VIAL INJ ONE (12:38)
[2018-07-29 12:54] LABS: INTERNATIONAL RATION (INR) 0.97; PROTHROMBIN TIME 13.4 SEC (11.4-15.4)
[2018-07-29 13:07] LABS: ABSOLUTE LYMPHOCYTES# (MANUAL) 1.2 10^3/uL (0.5-4.7); ABSOLUTE MONOCYTES # (MANUAL) 0.4 10^3/uL (0.1-1.4); BASOPHILS % (MANUAL) 0 % (0-2); EOSINOPHILS % (MANUAL) 0 % (0-6); LYMPHOCYTES % (MANUAL) 11 % (13-45); MONOCYTES % (MANUAL) 4 % (3-13); SEGMENTED NEUTROPHILS % (MAN) 85 % (42-78); TOTAL CELLS COUNTED 100
[2018-07-29 13:08] LABS: PLATELET COMMENT ADEQUATE; RBC MORPHOLOGY COMMENT NORMO-CYTIC/CHROMIC
[2018-07-29] MEDS ORDERED: GLUCAGON,HUMAN RECOMB 1 MG INJ SUBCUT PRN (14:07)
[2018-07-29] MEDS ORDERED: DEXTROSE 50%-WATER 25 GM/50 ML DISP.SYRIN IV PRN ×2 (14:07)
[2018-07-29] MEDS ORDERED: DEXTROSE 40% GEL 15 GM TUBE PO PRN ×2 (14:07)
[2018-07-29] MEDS ORDERED: VANCOMYCIN HCL 0 MG in DEXTROSE 5%-WATER 250 ML IV NR (14:15)
[2018-07-29] MEDS ORDERED: IPRATROPIUM/ALBUTEROL 0.5-2.5 MG/3 ML AMPUL NEB PRN (15:44)
[2018-07-29] MEDS ORDERED: ACETAMINOPHEN 325 MG TABLET PO PRN (15:44)
[2018-07-29 15:49] LABS: ARTERIAL BLOOD BASE EXCESS -0.8 mmol/L; ARTERIAL BLOOD H2CO3 0.97 mmol/L (1.05-1.35); ARTERIAL BLOOD HCO3 22.2 mmol/L (20-24); ARTERIAL BLOOD O2 SATURATION 91.7 % (94-98); ARTERIAL BLOOD PCO2 32.2 mmHg (35-45); ARTERIAL BLOOD PH 7.46 (7.35-7.45); ARTERIAL BLOOD PO2 57.9 mmHg (80-100); ARTERIAL BLOOD TOTAL CO2 23.2 mmol/L (21-25)
[2018-07-29 15:51] LABS: ARTERIAL BLOOD FIO2 21%
[2018-07-29] MEDS ORDERED: VANCOMYCIN HCL 1,000 MG in DEXTROSE 5%-WATER 250 ML IV ONE (17:00)
--- NOTE | 2018-07-29 17:23 | PDOC H&P ---
History of Present Illness Admission Date/PCP: 07/29/18 14:04 NORAH GUIDO MD History of Present Illness: ESTER NOVA is an 82 year old female with a past medical history of hy pertension, hypothyroidism, COPD not on home O2, chronic smoking, and was brought in due to peripheral vascular disease with prior left femoral stenting worsening confusion. Patient's daughter on bedside says that patient has been complaining of left- sided headache for the past week now. She says that patient did complain of worsening headache in the past 3 days. She was also noted to have confusion for almost a week but has been more confused and disoriented in the past 2 to 3 days. No reported neck pain or stiffness. No recent fever. When EMS evaluated patient, she was noted to be febrile at 100.4. She was noted to be somnolent when stimulated became very aggressive. She reportedly required Ativan, Haldol and ketamine en route. Upon encounter in the ER, she is lethargic. She is currently maintaining her airway is saturating well and is not in distress. She withdraws and moans to stimuli. There is very minimal nuchal rigidity. Past Medical History Cardiac Medical History: Reports: Hyperlipidema, Hypertension Denies: Myocardial Infarction Pulmonary Medical History: Denies: Asthma Neurological Medical History: Denies: Seizures Endocrine Medical History: Reports: Hypothyroidism GI Medical History: Denies: Hepatitis, Hiatal Hernia Psychiatric Medical History: Reports: Depression Hematology: Denies: Anemia, Sickle Cell Disease Past Surgical History Past Surgical History: Reports: Hysterectomy, Orthopedic Surgery - back surgery, Vascular Surgery - leg stent Denies: Amputation, Mastectomy, Pacemaker Social History Smoking Status: Unknown if Ever Smoked Frequency of Alcohol Use: None Hx Recreational Drug Use: No Drugs: None Hx Prescription Drug Abuse: No Family History Family History: Reviewed & Not Pertinent Parental Family History Reviewed: Yes - no premature CAD Children Family History Reviewed: No Sibling(s) Family History Reviewed.: No Medication/Allergy Home Medications: Celecoxib [Celebrex 200 mg Capsule] 200 mg PO DAILY 10/13/17 Cilostazol [Pletal 100 mg Tablet] 100 mg PO BIDACBS 10/13/17 Duloxetine HCl [Cymbalta] 60 mg PO DAILY 10/13/17 Levothyroxine Sodium [Synthroid 0.075 mg Tablet] 0.075 mg PO Q6AM 10/13/17 Metoprolol Succinate [Toprol XL 100 mg Tablet] 100 mg PO DAILY 10/13/17 Zolpidem Tartrate [Ambien] 5 mg PO QHS 10/13/17 Albuterol Sulfate [Albuterol Sulfate Hfa] 2 puff IH QIDP PRN 07/29/18 Aspirin [Ecotrin 81 mg EC Tablet] 81 mg PO DAILY 07/29/18 Cholestyramine (with Sugar) [Cholestyramine Packet] 4 gm PO DAILYP PRN MDD 8 GM 07/29/18 Diltiazem HCl [Dilt-Xr] 120 mg PO DAILY 07/29/18 Gabapentin [Neurontin 300 mg Capsule] 600 mg PO Q8 07/29/18 Allergies/Adverse Reactions: ibuprofen Allergy (Verified 10/13/17 17:15) Review of Systems All systems: reviewed and no additional remarkable complaints except as stated - as mentioned in HPI Physical Exam Vital Signs: Temp Pulse Resp BP Pulse Ox 100.3 F 16 145/76 H 92 07/29/18 11:52 07/29/18 11:26 07/29/18 11:26 07/29/18 11:26 Intake & Output 07/28/18 07/29/18 07/30/18 06:59 06:59 06:59 Intake Total 1000 Balance 1000 General appearance: PRESENT: other - She is currently maintaining her airway is saturating well and is not in distress. She withdraws and moans to stimuli. Head exam: PRESENT: atraumatic, normocephalic Eye exam: PRESENT: conjunctiva pink, EOMI, PERRLA. ABSENT: scleral icterus Ear exam: PRESENT: normal external ear exam Mouth exam: PRESENT: moist, tongue midline Neck exam: ABSENT: carotid bruit, JVD, lymphadenopathy, thyromegaly Respiratory exam: PRESENT: clear to auscultation sridevi. ABSENT: rales, rhonchi, wheezes Cardiovascular exam: PRESENT: RRR. ABSENT: diastolic murmur, rubs, systolic murmur Pulses: PRESENT: normal dorsalis pedis pul GI/Abdominal exam: PRESENT: normal bowel sounds, soft. ABSENT: distended, guarding, mass, organolmegaly, rebound, tenderness Rectal exam: PRESENT: deferred Neurological exam: PRESENT: altered, other - She withdraws and moans to stimuli. There is very minimal nuchal rigidity. Withdraws to pain equally on both sides. ABSENT: oriented to person, oriented to place, oriented to time Results Laboratory Results: 07/29/18 10:42 07/29/18 10:42 07/29/18 07/29/18 07/29/18 10:42 10:42 10:42 WBC 10.7 H RBC 4.57 Hgb 14.9 Hct 43.8 MCV 96 MCH 32.5 MCHC 33.9 RDW 13.7 Plt Count 248 Seg Neutrophils % Not Reportable Lymphocytes % Not Reportable Monocytes % Not Reportable Eosinophils % Not Reportable Basophils % Not Reportable Absolute Neutrophils Not Reportable Absolute Lymphocytes Not Reportable Absolute Monocytes Not Reportable Absolute Eosinophils Not Reportable Absolute Basophils Not Reportable Sodium 141.3 Potassium 3.6 Chloride 107 Carbon Dioxide 24 Anion Gap 10 BUN 19 Creatinine 0.99 Est GFR ( Amer) > 60 Est GFR (Non-Af Amer) 54 L Glucose 144 H Lactic Acid 1.6 Calcium 9.6 Total Bilirubin 1.4 H AST 54 H ALT 53 H Alkaline Phosphatase 107 Total Protein 7.5 Albumin 4.3 Lipase 61.4 TSH Urine Color Urine Appearance Urine pH Ur Specific [place] Urine Protein Urine Glucose (UA) Urine Ketones Urine Blood Urine Nitrite Ur Leukocyte Esterase Urine WBC (Auto) Urine RBC (Auto) 07/29/18 07/29/18 10:42 10:50 WBC RBC Hgb Hct MCV MCH MCHC RDW Plt Count Seg Neutrophils % Lymphocytes % Monocytes % Eosinophils % Basophils % Absolute Neutrophils Absolute Lymphocytes Absolute Monocytes Absolute Eosinophils Absolute Basophils Sodium Potassium Chloride Carbon Dioxide Anion Gap BUN Creatinine Est GFR ( Amer) Est GFR (Non-Af Amer) Glucose Lactic Acid Calcium Total Bilirubin AST ALT Alkaline Phosphatase Total Protein Albumin Lipase TSH 13.00 H Urine Color YELLOW Urine Appearance SLIGHTLY-CLOUDY Urine pH 5.0 Ur Specific [place] 1.026 Urine Protein >=500 H Urine Glucose (UA) NEGATIVE Urine Ketones NEGATIVE Urine Blood SMALL H Urine Nitrite NEGATIVE Ur Leukocyte Esterase NEGATIVE Urine WBC (Auto) 2 Urine RBC (Auto) 15 07/29/18 07/29/18 10:42 10:42 Creatine Kinase 176 H Troponin I 0.021 Impressions: Chest X-Ray 07/29/18 10:40 IMPRESSION: NO ACUTE RADIOGRAPHIC FINDING IN THE CHEST. Head CT 07/29/18 10:41 IMPRESSION: MILD CHRONIC CHANGES OF ATROPHY AND MICROVASCULAR ISCHEMIA. NO ACUTE PROCESS. EVIDENCE OF ACUTE STROKE: NO. Assessment and Plan - Diagnosis (1) Acute encephalopathy Is this a current diagnosis for this admission?: Yes Plan: CT head is unremarkable. TSH is elevated but level is not typically severely at a level that would cause myxedema coma. Check T3 and T4. With a recent history of headache and fever and acute confusion, will need to rule out meningitis. LP by radiology has been requested in the ER. Will start empirically with IV antibiotics. (2) COPD (chronic obstructive pulmonary disease) Is this a current diagnosis for this admission?: Yes Plan: Not in exacerbation. Breathing treatments as needed. (3) Hypertension Is this a current diagnosis for this admission?: Yes Plan: Resume home meds once verified. (4) Hypothyroidism Is this a current diagnosis for this admission?: Yes Plan: On Synthroid at home. TSH elevated. Check T3 and T4. Resume Synthroid once verified. - Time Time Spent with patient: 25-34 minutes
--- NOTE | 2018-07-29 17:23 | ADVANCED CARE ---
- Diagnosis (1) Acute encephalopathy Diagnosis Current: Yes (2) COPD (chronic obstructive pulmonary disease) Diagnosis Current: Yes (3) Hypothyroidism Diagnosis Current: Yes (4) Hypertension Diagnosis Current: Yes Resuscitation Status: Full Code Discussion: Discussed with patient's daughter on bedside, Anca Platt. She says that patient is a full code and prefers chest compressions, defibrillation and mechanical ventilation if the need arises. She says that she and her brother are the patient's surrogate medical decision makers.
[2018-07-29] MEDS ORDERED: HALOPERIDOL LACTATE INJ 5 MG/1 ML VIAL IV ONE (17:31)
[2018-07-29] MEDS ORDERED: LORAZEPAM INJ 2 MG/1 ML VIAL IV ONE (17:31)
[2018-07-29] MEDS ORDERED: HALOPERIDOL LACTATE INJ 5 MG/1 ML VIAL ONE (17:37)
[2018-07-29] MEDS ORDERED: LORAZEPAM INJ 2 MG/1 ML VIAL ONE (17:38)
[2018-07-29 17:48] LABS: FREE T3 3.06 pg/mL (2.77-5.27); FREE T4 (FREE THYROXINE) 1.11 ng/dL (0.78-2.19)
[2018-07-29] MEDS ORDERED: NICARDIPINE HCL RTU, ISO-OS 20 MG/200 ML RTUINJ IV PRN (18:57)
[2018-07-29] MEDS: DEXAMETHASONE SOD PHOSPHATE INJ 4 MG/1 ML VIAL IV SCH (19:52)
[2018-07-29] MEDS ORDERED: ACETAMINOPHEN 650 MG SUPP.RECT PR ONE (19:53)
[2018-07-29] MEDS: HALOPERIDOL LACTATE INJ 5 MG/1 ML VIAL IV PRN (21:45)
[2018-07-29] MEDS: CEFTRIAXONE 2 GM/D5W RTU 2 GM/50 ML RTUPB IV SCH (21:46)
[2018-07-29] MEDS: NORMAL SALINE 1000 ML 1,000 ML IV PRN (21:47)
[2018-07-29] MEDS: ACETAMINOPHEN 650 MG SUPP.RECT PR PRN (21:48)
[2018-07-29] MEDS: HEPARIN SOD (PORCINE) 5,000 UNIT/ML 1 ML SYRINGE SUBCUT SCH (21:48)
--- NOTE | 2018-07-29 21:52 | RADIOLOGY REPORT (SQ) ---
EXAM DESCRIPTION: FLUORO/NEEDLE PLACEMENT/SPINE; LUMBAR PUNCTURE COMPLETED DATE/TIME: 07/29/2018 6:08 pm; 07/29/2018 7:27 pm REASON FOR STUDY: 17; lp; Confusion. AMS, Mennigitis COMPARISON: None. FLUOROSCOPY TIME: 2 minutes 8 seconds 3 images saved to PACS. TECHNIQUE: Fluoroscopic guided lumbar puncture. LIMITATIONS: Altered mental status. Patient is not cooperative. Patient was given with 4 mg of David dol and 2 mg of Ativan. Patient continued to move. . PROCEDURE: After written consent and assessment were obtained, the patient was brought into the fluo roscopy room and placed prone on the table. The patient's lower back was prepped in a sterile fashio n and an entry site was selected under live fluoroscopic guidance. The entry site was anesthetized wi th 1% lidocaine. A 22 gauge needle was advanced through the skin and into the thecal sac at the level of L3-L4 which was unsuccessful. 2nd attempt was made at level at L4-L5. Total of 3 attempts were made. Patient continued to move. Procedure was aborted due to patient not cooperating. A fluorosco pic spot image was saved to PACS confirming level access. FINDINGS: No CSF fluid collected IMPRESSION: Attempted Lumbar puncture under fluoroscopy. Recommend conscious sedation with anesthes ia assistance. COMMENT: Patient medication list reviewed: Yes- Quality ID# [id number]:Eligible professional attests to doc umenting in the medical record they obtained, updated, or reviewed the patient's current medications. . Quality ID 145: Final reports for procedures using fluoroscopy that document radiation exposure rony jose antonio, or exposure time and number of fluorographic images (if radiation exposure indices are not avail able) TECHNICAL DOCUMENTATION: JOB ID: [id number] [employer]- All Rights Reserved Reading location - IP/workstation name: [email or web address]
[2018-07-29] MEDS ORDERED: ACYCLOVIR SODIUM INJ/PF 500 MG/10 ML SDV IV ONE (22:01)
[2018-07-29] MEDS: ACYCLOVIR SODIUM INJ/PF 500 MG/10 ML SDV IV SCH (23:40)
[2018-07-30] MEDS: DEXAMETHASONE SOD PHOSPHATE INJ 4 MG/1 ML VIAL IV SCH ×4 (00:37→17:26)
[2018-07-30] MEDS ORDERED: DILTIAZEM HCL INJ 25 MG/5 ML VIAL ONE (02:48)
[2018-07-30] MEDS ORDERED: DILTIAZEM HCL/D5W 125 MG/125 ML RTUINJ IV ONE (02:48)
[2018-07-30] MEDS: DILTIAZEM HCL/D5W 125 MG/125 ML RTUINJ IV PRN ×3 (03:00→23:10)
[2018-07-30] MEDS ORDERED: DILTIAZEM HCL INJ 25 MG/5 ML VIAL IV ONE (03:00)
[2018-07-30] MEDS: ACYCLOVIR SODIUM INJ/PF 500 MG/10 ML SDV IV SCH (03:56)
[2018-07-30 05:02] LABS: ABSOLUTE LYMPHOCYTES (AUTO) 0.6 10^3/uL (0.5-4.7); ABSOLUTE MONOCYTES (AUTO) 0.1 10^3/uL (0.1-1.4); ABSOLUTE NEUT (AUTO) 7.2 10^3/uL (1.7-8.2); BASOPHILS % (AUTO) 0.3 % (0-2); HEMATOCRIT 41.1 % (36.0-47.0); LYMPHOCYTES % (AUTO) 7.3 % (13-45); MEAN CORPUSCULAR HEMOGLOBIN 32.8 pg (27.0-33.4); MEAN CORPUSCULAR HGB CONC 34.2 g/dL (32.0-36.0); MEAN CORPUSCULAR VOLUME 96 fl (80-97); PLATELET COUNT 211 10^3/uL (150-450); RED BLOOD COUNT 4.28 10^6/uL (3.72-5.28); RED CELL DISTRIBUTION WIDTH 13.6 % (11.5-14.0); SEGMENTED NEUTROPHILS % (AUTO) 91.4 % (42-78); TOTAL CELLS COUNTED % (AUTO) 100 %; WHITE BLOOD COUNT 7.8 10^3/uL (4.0-10.5)
[2018-07-30 05:22] LABS: ALANINE AMINOTRANSFERASE 58 U/L (9-52); ALBUMIN 3.9 g/dL (3.5-5.0); ALKALINE PHOSPHATASE 102 U/L (38-126); ANION GAP 12 (5-19); ASPARTATE AMINO TRANSFERASE 72 U/L (14-36); BILIRUBIN,DIRECT 0.5 mg/dL (0.0-0.4); BLOOD UREA NITROGEN 17 mg/dL (7-20); CALCIUM 9.3 mg/dL (8.4-10.2); CARBON DIOXIDE 21 mmol/L (22-30); CHLORIDE 108 mmol/L (98-107); GLUCOSE 151 mg/dL (75-110); POTASSIUM 3.6 mmol/L (3.6-5.0); SODIUM 141.2 mmol/L (137-145); TOTAL PROTEIN 6.9 g/dL (6.3-8.2)
[2018-07-30] MEDS: NORMAL SALINE 1000 ML 1,000 ML IV PRN ×2 (06:04→15:35)
--- NOTE | 2018-07-30 09:32 | RADIOLOGY REPORT (SQ) ---
EXAM DESCRIPTION: CHEST SINGLE VIEW COMPLETED DATE/TIME: 07/30/2018 9:17 am REASON FOR STUDY: TACHYPNEA/ELEVATED BNP COMPARISON: 07/29/2018 EXAM PARAMETERS: NUMBER OF VIEWS: One view. TECHNIQUE: Single frontal radiographic view of the chest acquired. RADIATION DOSE: NA LIMITATIONS: None. FINDINGS: LUNGS AND PLEURA: Interval development of left basilar opacity. Right lung is clear. MEDIASTINUM AND HILAR STRUCTURES: No masses. Contour normal. HEART AND VASCULAR STRUCTURES: Heart normal in size. Normal vasculature. BONES: No acute findings. HARDWARE: None in the chest. OTHER: No other significant finding. IMPRESSION: Interval development of left lower lobe pneumonia. TECHNICAL DOCUMENTATION: JOB ID: [id number] [employer]- All Rights Reserved Reading location - IP/workstation name: [email or web address]
[2018-07-30] MEDS: HALOPERIDOL LACTATE INJ 5 MG/1 ML VIAL IV PRN ×4 (10:17→23:09)
[2018-07-30] MEDS: VANCOMYCIN HCL 1,500 MG in DEXTROSE 5%-WATER 250 ML IV SCH (10:20)
[2018-07-30] MEDS: CEFTRIAXONE 2 GM/D5W RTU 2 GM/50 ML RTUPB IV SCH ×2 (10:20→21:42)
[2018-07-30] MEDS: ACYCLOVIR SODIUM 700 MG in NORMAL SALINE 100 ML IV SCH ×2 (10:21→17:26)
[2018-07-30] MEDS: HEPARIN SOD (PORCINE) 5,000 UNIT/ML 1 ML SYRINGE SUBCUT SCH ×2 (11:45→21:41)
[2018-07-30 11:57] LABS: GLUCOSE,CSF 90 mg/dL (40-70); PROTEIN,CSF 284 mg/dL (12-60)
[2018-07-30] MEDS ORDERED: FUROSEMIDE INJ/PF 20 MG/2 ML SDV IV ONE (12:00)
[2018-07-30 12:47] LABS: APPEARANCE ALL TUBES CLOUDY; COLOR ALL TUBES RED; CSF TOTAL VOLUME 4.5 CC; CSF TUBE NUMBER 3; VOLUME TUBE 1 1.5 CC
--- NOTE | 2018-07-30 12:47 | PDOC PROGRESS REPORT ---
Subjective Progress Note for:: 07/30/18 Subjective:: This is an 82 year old female with a past medical history of hypertension, hypothyroidism, COPD not on home O2, chronic smoking, and peripheral vascular disease with prior left femoral stenting who was was brought in due to headache and worsening confusion. She was admitted for acute encephalopathy, ruling acute meningitis. She was agitated and combative during attempt on LP yesterday afternoon hence this was deferred. Appears, patient went into A. fib with RVR last night and was started on Cardizem drip. This morning, patient is awake and appears more coherent. She is oriented to person and thinks she is in [place], [place] but not to time. She is going for an LP soon. Urine output has been running low. Reason For Visit: ACUTE ENCEPHALOPATHY, R/O MENINGITIS Physical Exam Vital Signs: Temp Pulse Resp BP Pulse Ox 97.3 F 81 27 H 118/60 92 07/30/18 09:24 07/30/18 09:23 07/30/18 09:24 07/30/18 09:24 07/30/18 09:24 Intake & Output 07/29/18 07/30/18 07/31/18 06:59 06:59 06:59 Intake Total 2496 87 Output Total 615 15 Balance 1881 72 Weight 150 lb 12.739 oz General appearance: PRESENT: no acute distress, well-developed, well-nourished Head exam: PRESENT: atraumatic, normocephalic Eye exam: PRESENT: conjunctiva pink, EOMI, PERRLA. ABSENT: scleral icterus Ear exam: PRESENT: normal external ear exam Mouth exam: PRESENT: moist, tongue midline Neck exam: ABSENT: carotid bruit, JVD, lymphadenopathy, thyromegaly Respiratory exam: PRESENT: rhonchi. ABSENT: rales, wheezes Cardiovascular exam: PRESENT: RRR. ABSENT: diastolic murmur, rubs, systolic murmur Pulses: PRESENT: normal dorsalis pedis pul GI/Abdominal exam: PRESENT: normal bowel sounds, soft. ABSENT: distended, guarding, mass, organolmegaly, rebound, tenderness Rectal exam: PRESENT: deferred Neurological exam: PRESENT: alert, awake, oriented to person, CN II-XII grossly intact. ABSENT: motor sensory deficit Results Laboratory Results: 07/30/18 04:10 07/30/18 04:10 07/29/18 07/29/18 07/29/18 10:42 10:42 10:42 WBC 10.7 H RBC 4.57 Hgb 14.9 Hct 43.8 MCV 96 MCH 32.5 MCHC 33.9 RDW 13.7 Plt Count 248 Seg Neutrophils % Not Reportable Lymphocytes % Not Reportable Monocytes % Not Reportable Eosinophils % Not Reportable Basophils % Not Reportable Absolute Neutrophils Not Reportable Absolute Lymphocytes Not Reportable Absolute Monocytes Not Reportable Absolute Eosinophils Not Reportable Absolute Basophils Not Reportable Carbonic Acid HCO3/H2CO3 Ratio ABG pH ABG pCO2 ABG pO2 ABG HCO3 ABG O2 Saturation ABG Base Excess FiO2 Sodium 141.3 Potassium 3.6 Chloride 107 Carbon Dioxide 24 Anion Gap 10 BUN 19 Creatinine 0.99 Est GFR ( Amer) > 60 Est GFR (Non-Af Amer) 54 L Glucose 144 H Lactic Acid 1.6 Calcium 9.6 Magnesium Total Bilirubin 1.4 H AST 54 H ALT 53 H Alkaline Phosphatase 107 Total Protein 7.5 Albumin 4.3 Lipase 61.4 TSH Free T4 Free T3 pg/mL Urine Color Urine Appearance Urine pH Ur Specific [place] Urine Protein Urine Glucose (UA) Urine Ketones Urine Blood Urine Nitrite Ur Leukocyte Esterase Urine WBC (Auto) Urine RBC (Auto) 07/29/18 07/29/18 07/29/18 10:42 10:42 10:50 WBC RBC Hgb Hct MCV MCH MCHC RDW Plt Count Seg Neutrophils % Lymphocytes % Monocytes % Eosinophils % Basophils % Absolute Neutrophils Absolute Lymphocytes Absolute Monocytes Absolute Eosinophils Absolute Basophils Carbonic Acid HCO3/H2CO3 Ratio ABG pH ABG pCO2 ABG pO2 ABG HCO3 ABG O2 Saturation ABG Base Excess FiO2 Sodium Potassium Chloride Carbon Dioxide Anion Gap BUN Creatinine Est GFR ( Amer) Est GFR (Non-Af Amer) Glucose Lactic Acid Calcium Magnesium Total Bilirubin AST ALT Alkaline Phosphatase Total Protein Albumin Lipase TSH 13.00 H Free T4 1.11 Free T3 pg/mL 3.06 Urine Color YELLOW Urine Appearance SLIGHTLY-CLOUDY Urine pH 5.0 Ur Specific [place] 1.026 Urine Protein >=500 H Urine Glucose (UA) NEGATIVE Urine Ketones NEGATIVE Urine Blood SMALL H Urine Nitrite NEGATIVE Ur Leukocyte Esterase NEGATIVE Urine WBC (Auto) 2 Urine RBC (Auto) 15 07/29/18 07/30/18 07/30/18 15:33 04:10 04:10 WBC 7.8 RBC 4.28 Hgb 14.0 Hct 41.1 MCV 96 MCH 32.8 MCHC 34.2 RDW 13.6 Plt Count 211 Seg Neutrophils % 91.4 H Lymphocytes % 7.3 L Monocytes % 1.0 L Eosinophils % 0.0 Basophils % 0.3 Absolute Neutrophils 7.2 Absolute Lymphocytes 0.6 Absolute Monocytes 0.1 Absolute Eosinophils 0.0 Absolute Basophils 0.0 Carbonic Acid 0.97 L HCO3/H2CO3 Ratio 22:1 ABG pH 7.46 H ABG pCO2 32.2 L ABG pO2 57.9 L ABG HCO3 22.2 ABG O2 Saturation 91.7 L ABG Base Excess -0.8 FiO2 21% Sodium 141.2 Potassium 3.6 Chloride 108 H Carbon Dioxide 21 L Anion Gap 12 BUN 17 Creatinine 0.92 Est GFR ( Amer) > 60 Est GFR (Non-Af Amer) 59 L Glucose 151 H Lactic Acid Calcium 9.3 Magnesium 1.9 Total Bilirubin 1.0 AST 72 H ALT 58 H Alkaline Phosphatase 102 Total Protein 6.9 Albumin 3.9 Lipase TSH Free T4 Free T3 pg/mL Urine Color Urine Appearance Urine pH Ur Specific [place] Urine Protein Urine Glucose (UA) Urine Ketones Urine Blood Urine Nitrite Ur Leukocyte Esterase Urine WBC (Auto) Urine RBC (Auto) 07/29/18 07/29/18 07/30/18 10:42 10:42 04:10 Creatine Kinase 176 H Troponin I 0.021 NT-Pro-B Natriuret Pep 1490 H Impressions: Head CT 07/29/18 10:41 IMPRESSION: MILD CHRONIC CHANGES OF ATROPHY AND MICROVASCULAR ISCHEMIA. NO ACUTE PROCESS. EVIDENCE OF ACUTE STROKE: NO. Guidance Fluoroscopy 07/29/18 12:37 IMPRESSION: Attempted Lumbar puncture under fluoroscopy. Recommend conscious sedation with anesthesia assistance. Chest X-Ray 07/30/18 00:00 IMPRESSION: Interval development of left lower lobe pneumonia. Assessment and Plan - Diagnosis (1) Acute encephalopathy Is this a current diagnosis for this admission?: Yes Plan: 07/29: CT head is unremarkable. TSH is elevated but level is not typically severely at a level that would cause myxedema coma. Check T3 and T4. With a recent history of headache and fever and acute confusion, will need to rule out meningitis. LP by radiology has been requested in the ER. Will start empirically with IV antibiotics. 07/30: Improving. She is going for an LP soon. Note she went into AFib. No focal or unilateral neuro deficits. Continue Cardizem drip. Will discuss anticoagulation with family. (2) Atrial fibrillation Is this a current diagnosis for this admission?: Yes Plan: Questionable if this is new onset. Currently on Cardizem drip. She will is on Cardizem p.o. at home but family briefly mentioned that this was for her hypertension. Will further discuss anticoagulation. Reviewed records from [place]. Patient apparently has history of paroxysmal A. fib. A few months back, she was told to discuss anticoagulation with her PCP. Discussed with family, who says that this has not been brought to their attention. Discussed benefits and risk of anticoagulation and they will discuss this further. (3) COPD (chronic obstructive pulmonary disease) Is this a current diagnosis for this admission?: Yes Plan: Not in exacerbation. Breathing treatments as needed. (4) Hypothyroidism Is this a current diagnosis for this admission?: Yes Plan: On Synthroid at home. TSH elevated. T3 and T4 normal. (5) Hypertension Is this a current diagnosis for this admission?: Yes Plan: Controlled. Currently on Cardizem drip. - Time Time Spent with patient: 25-34 minutes
[2018-07-30 12:48] LABS: RED BLOOD CELL,CSF 34750 /uL (0-10); WHITE BLOOD CELL,CSF 56 /uL (0-5)
[2018-07-30 12:50] LABS: MONONUCLEAR CELLS CSF 13 %; POLYMORPHONUCLEAR CELLS CSF 87 %
--- NOTE | 2018-07-30 15:39 | RADIOLOGY REPORT (SQ) ---
EXAM DESCRIPTION: CHEST SINGLE VIEW COMPLETED DATE/TIME: 07/30/2018 3:19 pm REASON FOR STUDY: Placement of Central Line COMPARISON: Earlier exam same date NUMBER OF VIEWS: One view. TECHNIQUE: Single frontal radiographic view of the chest acquired. LIMITATIONS: None. FINDINGS: Central venous access catheter placed via left IJ approach. Catheter tip at superior campos a cava. No pneumothorax. Radiographic appearance of the chest otherwise stable. IMPRESSION: CENTRAL VENOUS ACCESS CATHETER IN APPROPRIATE LOCATION. NO PNEUMOTHORAX. NEW CENTRAL L INE. TECHNICAL DOCUMENTATION: JOB ID: [id number] [id number] 2010 [employer]- All Rights Reserved Reading location - IP/workstation name: [email or web address]
[2018-07-30] MEDS ORDERED: NORMAL SALINE INJ/PF 0.9% 10 ML SDV IV PRN ×2 (15:50→16:15)
--- NOTE | 2018-07-30 18:25 | Operative Report ---
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 Ultrasound-guided central venous puncture. 2. Left internal jugular vein central line placement. SURGEON: AMBER HENNING ANESTHESIA: Local TISSUE REMOVED OR ALTERED: None COMPLICATIONS: None apparent ESTIMATED BLOOD LOSS: Minimal PROCEDURE: Drains/implants: Left internal jugular vein central line placement at 14 cm. Procedure in detail: After informed consent was obtained, the patient was laid in the Trendelenburg position in the intensive care unit. The area of the left neck and chest were prepped and draped in a normal sterile fashion. The ultrasound was used to identify the left internal jugular vein. It was compressible with normal flow. Under direct ultrasonic guidance the left internal jugular vein was cannulated using the supplied access needle. The wire was inserted into the vein easily. The wire was confirmed to be within the lumen of the vein using the ultrasound device. The catheter was then slid over the wire using a modified Seldinger technique. The catheter was then aspirated and flushed. The catheter returned dark venous, nonpulsatile blood. The catheter was then sutured to the skin. A dressing was placed. The procedure at this time was concluded. All sponge, instrument, and needle counts were correct. Condition: Critical in ICU.
--- NOTE | 2018-07-30 20:55 | RADIOLOGY REPORT (SQ) ---
EXAM DESCRIPTION: XR CHEST 1 VIEW COMPLETED DATE/TME: 07/30/2018 20:14 CLINICAL HISTORY: 82 years, Female, re-check line placement-patient pulled at line COMPARISON: Multiple priors, most recent from earlier the same day NUMBER OF VIEWS: One TECHNIQUE: Single frontal view of the chest was obtained LIMITATIONS: None. FINDINGS: Left IJ approach central venous catheter tip is unchanged in position. Cardiac and mediastinal contours are stable. Bandlike opacity is again noted about the retrocardiac left lower lobe, likely atelectasis or scar. Lungs are otherwise clear. No pleural effusion or pneumothorax. IMPRESSION: Stable appearance of the chest. copyright 2010 [email or web address]- All Rights Reserved
[2018-07-30] MEDS ORDERED: LORAZEPAM INJ 2 MG/1 ML VIAL ONE (21:11)
[2018-07-30] MEDS: LORAZEPAM INJ 2 MG/1 ML VIAL IV PRN (21:15)
[2018-07-30] MEDS ORDERED: LORAZEPAM INJ 2 MG/1 ML VIAL IV ONE (23:45)
[2018-07-31 00:22] LABS: ARTERIAL BLOOD H2CO3 0.85 mmol/L (1.05-1.35); ARTERIAL BLOOD HCO3 17.2 mmol/L (20-24); ARTERIAL BLOOD O2 SATURATION 96.7 % (94-98); ARTERIAL BLOOD PCO2 28.2 mmHg (35-45); ARTERIAL BLOOD PO2 86.3 mmHg (80-100); ARTERIAL BLOOD TOTAL CO2 18.1 mmol/L (21-25)
[2018-07-31 00:27] LABS: ARTERIAL BLOOD FIO2 2L
[2018-07-31] MEDS: DEXAMETHASONE SOD PHOSPHATE INJ 4 MG/1 ML VIAL IV SCH ×5 (00:43→23:04)
[2018-07-31] MEDS: ACYCLOVIR SODIUM 700 MG in NORMAL SALINE 100 ML IV SCH ×3 (01:00→17:41)
[2018-07-31 03:26] LABS: HEMATOCRIT 38.5 % (36.0-47.0); HEMOGLOBIN 12.7 g/dL (12.0-15.5); MEAN CORPUSCULAR HEMOGLOBIN 31.7 pg (27.0-33.4); MEAN CORPUSCULAR HGB CONC 32.8 g/dL (32.0-36.0); MEAN CORPUSCULAR VOLUME 97 fl (80-97); PLATELET COUNT 201 10^3/uL (150-450); RED BLOOD COUNT 3.99 10^6/uL (3.72-5.28); RED CELL DISTRIBUTION WIDTH 13.9 % (11.5-14.0); WHITE BLOOD COUNT 14.8 10^3/uL (4.0-10.5)
[2018-07-31] MEDS: NORMAL SALINE 1000 ML 1,000 ML IV PRN ×2 (03:35→17:15)
[2018-07-31] MEDS: HALOPERIDOL LACTATE INJ 5 MG/1 ML VIAL IV PRN ×2 (03:35→07:40)
[2018-07-31 03:43] LABS: ARTERIAL BLOOD BASE EXCESS -5.3 mmol/L; ARTERIAL BLOOD H2CO3 0.92 mmol/L (1.05-1.35); ARTERIAL BLOOD HCO3 18.4 mmol/L (20-24); ARTERIAL BLOOD O2 SATURATION 98.1 % (94-98); ARTERIAL BLOOD PCO2 30.6 mmHg (35-45); ARTERIAL BLOOD TOTAL CO2 19.3 mmol/L (21-25)
[2018-07-31 03:44] LABS: ARTERIAL BLOOD FIO2 10L
[2018-07-31 03:44] LABS: ALANINE AMINOTRANSFERASE 52 U/L (9-52); ALBUMIN 3.2 g/dL (3.5-5.0); ALKALINE PHOSPHATASE 84 U/L (38-126); ANION GAP 11 (5-19); ASPARTATE AMINO TRANSFERASE 71 U/L (14-36); BILIRUBIN,DIRECT 0.4 mg/dL (0.0-0.4); BILIRUBIN,TOTAL 0.5 mg/dL (0.2-1.3); BLOOD UREA NITROGEN 32 mg/dL (7-20); CALCIUM 9.1 mg/dL (8.4-10.2); CARBON DIOXIDE 19 mmol/L (22-30); CHLORIDE 113 mmol/L (98-107); CREATINE KINASE 708 U/L (30-135); GLUCOSE 151 mg/dL (75-110); PHOSPHORUS 4.5 mg/dL (2.5-4.5); POTASSIUM 3.6 mmol/L (3.6-5.0); SODIUM 143.1 mmol/L (137-145); TOTAL PROTEIN 5.8 g/dL (6.3-8.2)
[2018-07-31 03:49] LABS: ABSOLUTE LYMPHOCYTES# (MANUAL) 0.9 10^3/uL (0.5-4.7); ABSOLUTE MONOCYTES # (MANUAL) 0.4 10^3/uL (0.1-1.4); ANISOCYTOSIS SLIGHT; BASOPHILS % (MANUAL) 0 % (0-2); EOSINOPHILS % (MANUAL) 0 % (0-6); LYMPHOCYTES % (MANUAL) 6 % (13-45); MONOCYTES % (MANUAL) 3 % (3-13); SEGMENTED NEUTROPHILS % (MAN) 91 % (42-78); TOTAL CELLS COUNTED 100
[2018-07-31 03:50] LABS: PLATELET COMMENT ADEQUATE; ROULEAUX SLIGHT
--- NOTE | 2018-07-31 08:42 | RADIOLOGY REPORT (SQ) ---
EXAM DESCRIPTION: CHEST SINGLE VIEW COMPLETED DATE/TIME: 07/31/2018 6:47 am REASON FOR STUDY: PNA COMPARISON: 07/30/2018 NUMBER OF VIEWS: One view. TECHNIQUE: Single frontal radiographic image of the chest acquired. LIMITATIONS: None. FINDINGS: LUNGS AND PLEURA: COPD. No infiltrate. No effusions. MEDIASTINUM AND HEART: Stable heart size and mediastinal structures. SUPPORT DEVICES: Appropriate location without change. BONY STRUCTURES: No acute findings. HARDWARE: None. OTHER: No other significant finding. IMPRESSION: STABLE APPEARANCE OF THE CHEST. SUPPORT DEVICES UNCHANGED. Reading location - IP/workstation name: [email or web address]
[2018-07-31] MEDS: HEPARIN SOD (PORCINE) 5,000 UNIT/ML 1 ML SYRINGE SUBCUT SCH ×2 (09:01→21:08)
[2018-07-31] MEDS: VANCOMYCIN HCL 1,500 MG in DEXTROSE 5%-WATER 250 ML IV SCH (09:01)
[2018-07-31] MEDS: CEFTRIAXONE 2 GM/D5W RTU 2 GM/50 ML RTUPB IV SCH ×2 (09:02→21:07)
[2018-07-31] MEDS ORDERED: HALOPERIDOL LACTATE INJ 5 MG/1 ML VIAL IV PRN (10:03)
[2018-07-31] MEDS: LEVALBUTEROL HCL NEB 0.63 MG/3 ML AMPUL NEB PRN (11:28)
[2018-07-31] MEDS: LORAZEPAM INJ 2 MG/1 ML VIAL IV PRN ×2 (11:44→20:30)
[2018-07-31] MEDS ORDERED: METOPROLOL TARTRATE PF/INJ 5 MG/5 ML SDV IV ONE (13:51)
[2018-07-31] MEDS: DILTIAZEM HCL/D5W 125 MG/125 ML RTUINJ IV PRN ×2 (14:08→22:39)
[2018-07-31] MEDS ORDERED: LORAZEPAM INJ 2 MG/1 ML VIAL IV PRN (15:37)
--- NOTE | 2018-07-31 15:45 | Progress Note ---
Provider Note Provider Note: ID Consult Note Asked to review the patient's chart. Pt not seen or examined. Reviewed VS, imaging reports, provider notes, labs. Pt is a 82 year old woman with PMH including HTN, hypothyroidism, COPD, chronic smoking, and PVD, who was brought in on 07/29/18 due to worsening confusion over 2-3 days. Pt was not able to supply ROS, but according to family, she had worsening headache and confusion without specific complaint of neck pain or stiffness. When she presented she had a fever and was somnolent initially but became agitated when stimulated. She was appreciated to have dry mucous membranes, minimal nuchal rigidity, clear lungs, unremarkable cardiac and abdominal exam. CT head w/o contrast did not show acute changes. CXR initially showed no abnormal findings. Repeat on 07/29 was read as showing a L basilar opacity. LP was performed on 07/30/18: CSF RBCs 34,750, WBC 56 (87% PMNs), glucose 90 (serum 150), protein 284. The CSF fluid was red in color and cloudy appearing. CSF Gram stain had no organisms and cx has been negative x 1 day. BCx have no growth in one set and GPCs in clusters in the other set. Pt appeared to be improving in mentation - awake but still confused on 07/30. She has had no fever since 07/29. A sputum sample was also sent for culture. Impression/Recommendations Most likely she has a toxic/metabolic encephalopathy or delirium. - Can consider HSV PCR of the CSF (send out test, will take days to return) and/or MRI of the brain (not as sensitive, but still abnormal in ~90% of cases), depending on the level of clinical suspicion for HSV encephalitis or the need to rule out other etiologies such as CVA that did not appear on noncontrast CT head. I doubt she has encephalitis based on how little inflammation there appears to be in the CSF when corrected for the number of RBCs present. - Her CSF profile is not consistent with a bacterial meningitis. When corrected for the number of RBCs present, the CSF WBC count only slightly above normal, and she has no hypoglycorrhachia. CSF protein elevation can be elevated in the setting of a traumatic tap, and the cloudy appearance of the CSF likely reflects the contamination of the CSF sample with some blood. - If there is no other indication for vancomycin and Rocephin, it would be appropriate to discontinue both. * However, she has GPCs in clusters in one blood culture set, and continuing vancomycin until it can be confirmed she has no Staph aureus in her blood would be reasonable. I called to Micro lab to see if there was any preliminary information, and there appears to be at least one coagulase negative Staph isolate, but the other Gram positive isolate has not been identified yet. It is likely to be another contaminating organism but has not been confirmed yet. * The LLL infiltrate is not very impressive on CXR, but Rocephin would be reasonable to continue if she is suspected of having a bacterial pneumonia as the underlying problem. Edgar Wright MD [facility] INfectious Diseases pager [phone]
--- NOTE | 2018-07-31 16:02 | PDOC PROGRESS REPORT ---
Subjective Progress Note for:: 07/31/18 Subjective:: This is an 82 year old female with a past medical history of hypertension, hypothyroidism, COPD not on home O2, chronic smoking, and peripheral vascular disease with prior left femoral stenting who was was brought in due to headache and worsening confusion. 07/30: She was admitted for acute encephalopathy, ruling out acute meningitis. She was agitated and combative during attempt on LP yesterday afternoon hence this was deferred. Appears, patient went into A. fib with RVR last night and was started on Cardizem drip. This morning, patient is awake and appears more coherent. She is oriented to person and thinks she is in [place], [place] but not to time. She is going for an LP soon. Urine output has been running low. 07/31: Patient became agitated last night around 10 PM requiring Haldol and Ativan. She is lethargic and occasionally agitated but is she currently protecting her airway and is saturating well on nasal cannula. Her initial CSF analysis is not consistent with bacterial meningitis but may possibly be suggestive of viral meningitis. Will await further ID recommendations. Reason For Visit: ACUTE ENCEPHALOPATHY, R/O MENINGITIS Physical Exam Vital Signs: Temp Pulse Resp BP Pulse Ox 98.2 F 115 H 26 H 145/67 H 97 07/31/18 10:03 07/31/18 11:39 07/31/18 11:39 07/31/18 10:03 07/31/18 11:39 Intake & Output 07/30/18 07/31/18 08/01/18 06:59 06:59 06:59 Intake Total 2496 2949 477 Output Total 615 1655 350 Balance 1881 1294 127 Weight 150 lb 12.739 oz 149 lb 4.047 oz General appearance: PRESENT: other - lethargic Head exam: PRESENT: atraumatic, normocephalic Eye exam: PRESENT: conjunctiva pink, EOMI, PERRLA. ABSENT: scleral icterus Ear exam: PRESENT: normal external ear exam Neck exam: ABSENT: carotid bruit, JVD, lymphadenopathy, thyromegaly Respiratory exam: PRESENT: rhonchi. ABSENT: rales, wheezes Cardiovascular exam: PRESENT: RRR. ABSENT: diastolic murmur, rubs, systolic murmur Pulses: PRESENT: normal dorsalis pedis pul GI/Abdominal exam: PRESENT: normal bowel sounds, soft. ABSENT: distended, guarding, mass, organolmegaly, rebound, tenderness Rectal exam: PRESENT: deferred Neurological exam: PRESENT: other - lethargic, occasionally agitated Results Laboratory Results: 07/31/18 03:05 07/31/18 03:05 07/31/18 07/31/18 07/31/18 00:15 03:05 03:05 WBC 14.8 H RBC 3.99 Hgb 12.7 Hct 38.5 MCV 97 MCH 31.7 MCHC 32.8 RDW 13.9 Plt Count 201 Seg Neutrophils % Not Reportable Lymphocytes % Not Reportable Monocytes % Not Reportable Eosinophils % Not Reportable Basophils % Not Reportable Absolute Neutrophils Not Reportable Absolute Lymphocytes Not Reportable Absolute Monocytes Not Reportable Absolute Eosinophils Not Reportable Absolute Basophils Not Reportable Carbonic Acid 0.85 L HCO3/H2CO3 Ratio 20:1 ABG pH 7.40 ABG pCO2 28.2 L ABG pO2 86.3 ABG HCO3 17.2 L ABG O2 Saturation 96.7 ABG Base Excess -6.0 FiO2 2L Sodium 143.1 Potassium 3.6 Chloride 113 H Carbon Dioxide 19 L Anion Gap 11 BUN 32 H Creatinine 2.31 H Est GFR ( Amer) 25 L Est GFR (Non-Af Amer) 20 L Glucose 151 H Lactic Acid Calcium 9.1 Phosphorus 4.5 Magnesium 1.8 Total Bilirubin 0.5 AST 71 H ALT 52 Alkaline Phosphatase 84 Total Protein 5.8 L Albumin 3.2 L 07/31/18 07/31/18 03:20 03:30 WBC RBC Hgb Hct MCV MCH MCHC RDW Plt Count Seg Neutrophils % Lymphocytes % Monocytes % Eosinophils % Basophils % Absolute Neutrophils Absolute Lymphocytes Absolute Monocytes Absolute Eosinophils Absolute Basophils Carbonic Acid 0.92 L HCO3/H2CO3 Ratio 20:1 ABG pH 7.40 ABG pCO2 30.6 L ABG pO2 111.0 H ABG HCO3 18.4 L ABG O2 Saturation 98.1 H ABG Base Excess -5.3 FiO2 10L Sodium Potassium Chloride Carbon Dioxide Anion Gap BUN Creatinine Est GFR ( Amer) Est GFR (Non-Af Amer) Glucose Lactic Acid 1.1 Calcium Phosphorus Magnesium Total Bilirubin AST ALT Alkaline Phosphatase Total Protein Albumin 07/29/18 22:15 Catheterized Urine Urine Culture - Final NO GROWTH 2 DAYS 07/29/18 07/29/18 07/30/18 10:42 10:42 04:10 Creatine Kinase 176 H CK-MB (CK-2) Troponin I 0.021 NT-Pro-B Natriuret Pep 1490 H 07/31/18 07/31/18 03:05 03:05 Creatine Kinase 708 H CK-MB (CK-2) 14.10 H Troponin I NT-Pro-B Natriuret Pep Impressions: Head CT 07/29/18 10:41 IMPRESSION: MILD CHRONIC CHANGES OF ATROPHY AND MICROVASCULAR ISCHEMIA. NO ACUTE PROCESS. EVIDENCE OF ACUTE STROKE: NO. Guidance Fluoroscopy 07/29/18 12:37 IMPRESSION: Attempted Lumbar puncture under fluoroscopy. Recommend conscious sedation with anesthesia assistance. Chest X-Ray 07/31/18 06:00 IMPRESSION: STABLE APPEARANCE OF THE CHEST. SUPPORT DEVICES UNCHANGED. Assessment and Plan - Diagnosis (1) Acute encephalopathy Is this a current diagnosis for this admission?: Yes Plan: 07/29: CT head is unremarkable. TSH is elevated but level is not typically severely at a level that would cause myxedema coma. Check T3 and T4. With a recent history of headache and fever and acute confusion, will need to rule out meningitis. LP by radiology has been requested in the ER. Will start empirically with IV antibiotics. 07/30: Improving. She is going for an LP soon. Note she went into AFib. No focal or unilateral neuro deficits. Continue Cardizem drip. Will discuss anticoagulation with family. 07/31: Patient became agitated last night around 10 PM requiring Haldol and Ativan. She is lethargic and occasionally agitated but is she currently protecting her airway and is saturating well on nasal cannula. Her initial CSF analysis is not consistent with bacterial meningitis but may possibly be sug gestive of viral meningitis. Will await further ID recommendations. (2) Atrial fibrillation Is this a current diagnosis for this admission?: Yes Plan: Currently on Cardizem drip. She will is on Cardizem p.o. at home but family br deyanira mentioned that this was for her hypertension. Will further discuss anticoagulation. Reviewed records from [facility]. Patient apparently has history of paroxysmal A. fib. a few months back, she was told to discuss anticoagulation with her PCP. Discussed with family, who says that this has not been brought to their attention. Discussed benefits and risk of anticoagulation and they will discuss this further. 07/31: Family is still undecided about anticoagulation. CHADVASC score of 5, HAS-BLED score is high at 3. Note that HAS BLED is high at this time due to acute renal failure. Reassess and rediscuss with family when renal function has recovered. (3) COPD (chronic obstructive pulmonary disease) Is this a current diagnosis for this admission?: Yes Plan: Not in exacerbation. Breathing treatments as needed. (4) Hypothyroidism Is this a current diagnosis for this admission?: Yes Plan: On Synthroid at home. TSH elevated. T3 and T4 normal. (5) Hypertension Is this a current diagnosis for this admission?: Yes Plan: Controlled. Currently on Cardizem drip. (6) Pneumonia Is this a current diagnosis for this admission?: Yes Plan: CXR shows possible LL PNA. On IV antibiotics. Sputum culture ordered. (7) Acute kidney injury Is this a current diagnosis for this admission?: Yes Plan: Her urine output improved with IV fluid bolus. Increase fluids to 125 cc/hr. Repeat BMP tomorrow. - Time Time Spent with patient: 25-34 minutes
--- NOTE | 2018-07-31 19:21 | XCELERA REPORT ---
[address] [address] Transthoracic Echocardiogram Report Name: ESTER NOVA Age: 82 yrs Gender: Female : 1935 Patient Status: Inpatient Patient Location: ICU^603^A Study Date: 07/31/2018 02:01 PM Height: 69 in Weight: 149 lb BSA: 1.8 m2 Procedure: A two-dimensional transthoracic echocardiogram with color flow and Doppler was performed. The study was technically difficult with many images being suboptimal in quality. Reason For Study: meningitis,toothabscess,GPC+,eval for endocarditis History: meningitis,toothabscess,GPC+,eval for endocarditis. Ordering Physician: TIM MADSEN Performed By: Leslye Juan Interpretation Summary Not a good study to assess for Valvular Vegetation.Recommend CLARK. The left ventricle is normal in size. There is normal left ventricular wall thickness. LV EF is > than 75% Doppler measurements suggest impaired left ventricular relaxation, which is associated with grade I/IV or mild diastolic dysfunction The left ventricular wall motion is normal. There is no thrombus. No ASD,VSD,or PFO. The right ventricle is grossly normal size. The right atrium is normal. The left atrial size is normal. There is moderate to severe mitral annular calcification. There is no evidence of mitral valve prolapse. There is no vegetation seen on the mitral valve. There is mild mitral stenosis There is a mild amount of mitral regurgitation There is no aortic valvular vegetation. There is no aortic valve stenosis There is no LVOT obstruction. No aortic regurgitation is present. There is no tricuspid stenosis. There is a moderate to severe amount of tricuspid regurgitation There is moderate to severe pulmonary hypertension by echo RVSP is 59 to 64 mm o Hg , with RA mean of 15 to 20. The aortic root is normal size. The inferior vena cava appeared dilated and decreased < 50% with respiration (RAP 15-20 mmHg) Not a good study to assess for Valvular Vegetation.Recommend CLARK. MMode/2D Measurements & Calculations RVDd: 2.8 cm LVIDd: 3.5 cm FS: 45.5 % Ao root diam: 2.7 cm IVSd: 1.1 cm LVIDs: 1.9 cm EDV(Teich): 49.5 ml Ao root area: 5.7 cm2 LVPWd: 1.1 cm ESV(Teich): 11.0 ml LA dimension: 3.1 cm EF(Teich): 77.9 % Doppler Measurements & Calculations MV E max nilo: MV P1/2t max nilo: Ao V2 max: LV V1 max P.5 cm/sec 150.8 cm/sec 183.3 cm/sec 12.2 mmHg MV A max nilo: MV P1/2t: 82.6 msec Ao max PG: LV V1 max: 198.1 cm/sec MVA(P1/2t): 2.7 cm2 13.4 mmHg 174.8 cm/sec MV E/A: 0.63 MV dec slope: 535.1 cm/sec2 MV dec time: 0.26 sec PA V2 max: TR max nilo: MV P1/2t-pr_phl: 142.5 cm/sec 330.0 cm/sec 76.1 msec PA max P.2 mmHgTR max P.6 mmHg Left Ventricle The left ventricle is normal in size. There is normal left ventricular wall thickness. The left ventricular ejection fraction is within normal limits. LV EF is > than 75%. Doppler measurements suggest impaired left ventricular relaxation, which is associated with grade I/IV or mild diastolic dysfunction. The left ventricular wall motion is normal. There is no thrombus. No ASD,VSD,or PFO. Right Ventricle The right ventricle is grossly normal size. The right ventricle is not well visualized secondary to technical limitations. Atria The right atrium is normal. The left atrial size is normal. Mitral Valve There is moderate to severe mitral annular calcification. There is no evidence of mitral valve prolapse. There is no vegetation seen on the mitral valve. There is mild mitral stenosis. There is a mild amount of mitral regurgitation. Aortic Valve There is no aortic valvular vegetation. There is no aortic valve stenosis. There is no LVOT obstruction. No aortic regurgitation is present. Tricuspid Valve There is no tricuspid stenosis. There is a moderate to severe amount of tricuspid regurgitation. There is moderate to severe pulmonary hypertension by echo. RVSP is 59 to 64 mm o Hg , with RA mean of 15 to 20. Pulmonic Valve The pulmonic valve is not well visualized. Great Vessels The aortic root is normal size. The inferior vena cava appeared dilated and decreased < 50% with respiration (RAP 15-20 mmHg). : TIM MADSEN > Dina Jauregui
[2018-07-31] MEDS ORDERED: FENTANYL CITRATE INJ/PF 100 MCG/2 ML AMPUL ONE (21:02)
[2018-07-31] MEDS ORDERED: FENTANYL CITRATE INJ/PF 100 MCG/2 ML AMPUL IV ONE (21:30)
[2018-08-01] MEDS: ACYCLOVIR SODIUM 700 MG in NORMAL SALINE 100 ML IV SCH ×3 (01:59→18:38)
[2018-08-01] MEDS ORDERED: FENTANYL CITRATE INJ/PF 100 MCG/2 ML AMPUL ONE (03:18)
[2018-08-01] MEDS: FENTANYL CITRATE INJ/PF 100 MCG/2 ML AMPUL IV PRN ×3 (03:29→18:36)
[2018-08-01] MEDS: LORAZEPAM INJ 2 MG/1 ML VIAL IV PRN ×3 (04:30→23:08)
[2018-08-01 04:52] LABS: HEMATOCRIT 35.8 % (36.0-47.0); HEMOGLOBIN 11.7 g/dL (12.0-15.5); MEAN CORPUSCULAR HEMOGLOBIN 32.1 pg (27.0-33.4); MEAN CORPUSCULAR HGB CONC 32.8 g/dL (32.0-36.0); MEAN CORPUSCULAR VOLUME 98 fl (80-97); PLATELET COUNT 175 10^3/uL (150-450); RED BLOOD COUNT 3.66 10^6/uL (3.72-5.28); WHITE BLOOD COUNT 12.5 10^3/uL (4.0-10.5)
[2018-08-01 04:54] LABS: ARTERIAL BLOOD BASE EXCESS -6.7 mmol/L; ARTERIAL BLOOD FIO2 10 L; ARTERIAL BLOOD H2CO3 0.93 mmol/L (1.05-1.35); ARTERIAL BLOOD HCO3 17.4 mmol/L (20-24); ARTERIAL BLOOD O2 SATURATION 91.3 % (94-98); ARTERIAL BLOOD PCO2 30.9 mmHg (35-45); ARTERIAL BLOOD PH 7.37 (7.35-7.45); ARTERIAL BLOOD PO2 61.4 mmHg (80-100); ARTERIAL BLOOD TOTAL CO2 18.4 mmol/L (21-25)
[2018-08-01 05:02] LABS: ANION GAP 9 (5-19); BLOOD UREA NITROGEN 38 mg/dL (7-20); CALCIUM 8.5 mg/dL (8.4-10.2); CARBON DIOXIDE 19 mmol/L (22-30); CHLORIDE 118 mmol/L (98-107); GLUCOSE 155 mg/dL (75-110); PHOSPHORUS 5.4 mg/dL (2.5-4.5); POTASSIUM 3.5 mmol/L (3.6-5.0); SODIUM 145.9 mmol/L (137-145)
[2018-08-01 05:18] LABS: ABSOLUTE LYMPHOCYTES# (MANUAL) 0.4 10^3/uL (0.5-4.7); ABSOLUTE MONOCYTES # (MANUAL) 0.5 10^3/uL (0.1-1.4); BASOPHILS % (MANUAL) 0 % (0-2); EOSINOPHILS % (MANUAL) 0 % (0-6); LYMPHOCYTES % (MANUAL) 3 % (13-45); MONOCYTES % (MANUAL) 4 % (3-13); RBC MORPHOLOGY COMMENT NORMO-CYTIC/CHROMIC; SEGMENTED NEUTROPHILS % (MAN) 93 % (42-78); TOTAL CELLS COUNTED 100
[2018-08-01 05:19] LABS: PLATELET COMMENT ADEQUATE
[2018-08-01] MEDS: DEXAMETHASONE SOD PHOSPHATE INJ 4 MG/1 ML VIAL IV SCH ×4 (05:25→23:33)
[2018-08-01] MEDS: DILTIAZEM HCL/D5W 125 MG/125 ML RTUINJ IV PRN (05:26)
[2018-08-01] MEDS: NORMAL SALINE 1000 ML 1,000 ML IV PRN (05:34)
--- NOTE | 2018-08-01 08:44 | RADIOLOGY REPORT (SQ) ---
EXAM DESCRIPTION: CHEST SINGLE VIEW COMPLETED DATE/TIME: 08/01/2018 6:14 am REASON FOR STUDY: PNA COMPARISON: CT chest 10/15/2017 Chest films 07/29/2018, 07/30/2018 EXAM PARAMETERS: NUMBER OF VIEWS: One view. TECHNIQUE: Single frontal radiographic view of the chest acquired. RADIATION DOSE: NA LIMITATIONS: None. FINDINGS: LUNGS AND PLEURA: Pulmonary vascular congestion is present with minimal perihilar airspace disease left greater than right. No pleural effusion or pneumothorax. MEDIASTINUM AND HILAR STRUCTURES: No masses. Contour normal. HEART AND VASCULAR STRUCTURES: Stable borderline cardiomegaly. Calcified uncoiled thoracic aorta BONES: No acute findings. HARDWARE: Left jugular central line tip superior vena cava. OTHER: No other significant finding. IMPRESSION: Pulmonary vascular congestion is present with minimal perihilar airspace disease left gr eater than right. This could represent mild fluid overload or congestive failure. Early or developi ng pneumonia could not be excluded. TECHNICAL DOCUMENTATION: JOB ID: [id number] [employer]- All Rights Reserved Reading location - IP/workstation name: [email or web address]
[2018-08-01] MEDS: LEVALBUTEROL HCL NEB 0.63 MG/3 ML AMPUL NEB PRN ×2 (09:24→18:55)
[2018-08-01] MEDS: HEPARIN SOD (PORCINE) 5,000 UNIT/ML 1 ML SYRINGE SUBCUT SCH ×2 (09:53→21:15)
[2018-08-01] MEDS: CEFTRIAXONE 2 GM/D5W RTU 2 GM/50 ML RTUPB IV SCH ×2 (09:59→21:12)
[2018-08-01] MEDS ORDERED: POTASSI CL 20 MEQ/50 ML RIDER 20 MEQ/50 ML RTUPB IV ONE (10:41)
[2018-08-01] MEDS ORDERED: NORMAL SALINE 1000 ML 1,000 ML IV PRN (10:43)
[2018-08-01] MEDS ORDERED: 1/2 NORMAL SALINE 1,000 ML IV PRN (10:44)
--- NOTE | 2018-08-01 11:19 | RADIOLOGY REPORT (SQ) ---
EXAM DESCRIPTION: KUB/ABDOMEN (SINGLE VIEW) COMPLETED DATE/TIME: 08/01/2018 10:37 am REASON FOR STUDY: NG tube placement COMPARISON: 10/13/2017 NUMBER OF VIEWS: One view. TECHNIQUE: Supine radiographic image of the abdomen acquired. LIMITATIONS: None. FINDINGS: BOWEL GAS PATTERN: Normal bowel gas pattern. No dilated loops. CALCIFICATIONS: No suspicious calcifications. SOFT TISSUES: No gross mass or suggestion of organomegaly. HARDWARE: An NG tube is doubled back upon itself at the gastroesophageal junction. Rods are present in the lower lumbar spine. BONES: Lumbar degenerative changes. OTHER: No other significant finding. IMPRESSION: NG tube is doubled back upon itself at the GE junction. TECHNICAL DOCUMENTATION: JOB ID: [id number] [employer]- All Rights Reserved Reading location - IP/workstation name: [email or web address]
[2018-08-01] MEDS: DILTIAZEM HCL 60 MG TABLET NG SCH ×3 (11:32→23:33)
[2018-08-01] MEDS ORDERED: METOPROLOL TARTRATE 50 MG TABLET NG ONE (15:00)
--- NOTE | 2018-08-01 16:16 | Progress Note ---
Provider Note Provider Note: ID Consult - Brief follow up note Called [facility] for update regarding blood cultures from admission. One set has no growth, the other set appears to have coagulase negative Staph species, pending species identification, but not Staph aureus. Coagulase negative Staph are frequently blood culture contaminants, and currently she does not have a clinical syndrome or further evidence to suggest a true coagulase negative Staph bacteremia or endovascular infection. Recommend discontinuing IV vancomycin. Would pursue MRI when able and send CSF for HSV PCR if it is still available. Edgar Wright [facility] Infectious Diseases pager [phone]
[2018-08-01] MEDS ORDERED: FUROSEMIDE INJ/PF 20 MG/2 ML SDV ONE (18:29)
[2018-08-01 18:50] LABS: ARTERIAL BLOOD BASE EXCESS -5.7 mmol/L; ARTERIAL BLOOD HCO3 18.6 mmol/L (20-24); ARTERIAL BLOOD O2 SATURATION 96.3 % (94-98); ARTERIAL BLOOD PCO2 33.1 mmHg (35-45); ARTERIAL BLOOD PH 7.37 (7.35-7.45); ARTERIAL BLOOD PO2 85.6 mmHg (80-100); ARTERIAL BLOOD TOTAL CO2 19.6 mmol/L (21-25)
[2018-08-01 18:52] LABS: ARTERIAL BLOOD FIO2 10L
[2018-08-01] MEDS ORDERED: FUROSEMIDE INJ/PF 20 MG/2 ML SDV IV ONE (19:30)
[2018-08-01] MEDS: METOPROLOL TARTRATE 50 MG TABLET NG SCH (21:15)
[2018-08-01] MEDS ORDERED: VANCOMYCIN HCL 500 MG in DEXTROSE 5%-WATER 100 ML IV SCH (22:00)
[2018-08-01 22:10] LABS: VANCOMYCIN,TROUGH 24.7 ug/mL (5.0-20.0)
[2018-08-02] MEDS: FENTANYL CITRATE INJ/PF 100 MCG/2 ML AMPUL IV PRN ×2 (00:36→08:57)
[2018-08-02] MEDS: ACYCLOVIR SODIUM 700 MG in NORMAL SALINE 100 ML IV SCH ×3 (01:00→18:06)
[2018-08-02 04:31] LABS: HEMOGLOBIN 11.7 g/dL (12.0-15.5); MEAN CORPUSCULAR HEMOGLOBIN 32.6 pg (27.0-33.4); MEAN CORPUSCULAR HGB CONC 33.4 g/dL (32.0-36.0); MEAN CORPUSCULAR VOLUME 98 fl (80-97); PLATELET COUNT 174 10^3/uL (150-450); RED BLOOD COUNT 3.58 10^6/uL (3.72-5.28); RED CELL DISTRIBUTION WIDTH 14.4 % (11.5-14.0)
[2018-08-02 04:38] LABS: ARTERIAL BLOOD FIO2 10L; ARTERIAL BLOOD H2CO3 1.02 mmol/L (1.05-1.35); ARTERIAL BLOOD HCO3 19.3 mmol/L (20-24); ARTERIAL BLOOD PCO2 33.9 mmHg (35-45); ARTERIAL BLOOD PH 7.37 (7.35-7.45); ARTERIAL BLOOD PO2 110.1 mmHg (80-100); ARTERIAL BLOOD TOTAL CO2 20.3 mmol/L (21-25)
[2018-08-02 04:58] LABS: ALANINE AMINOTRANSFERASE 55 U/L (9-52); ALBUMIN 3.1 g/dL (3.5-5.0); ALKALINE PHOSPHATASE 67 U/L (38-126); ANION GAP 9 (5-19); ASPARTATE AMINO TRANSFERASE 51 U/L (14-36); BILIRUBIN,DIRECT 0.4 mg/dL (0.0-0.4); BILIRUBIN,TOTAL 0.4 mg/dL (0.2-1.3); BLOOD UREA NITROGEN 51 mg/dL (7-20); CALCIUM 8.9 mg/dL (8.4-10.2); CARBON DIOXIDE 21 mmol/L (22-30); CHLORIDE 116 mmol/L (98-107); GLUCOSE 143 mg/dL (75-110); POTASSIUM 3.8 mmol/L (3.6-5.0); SODIUM 145.9 mmol/L (137-145); TOTAL PROTEIN 5.5 g/dL (6.3-8.2)
[2018-08-02] MEDS: DEXAMETHASONE SOD PHOSPHATE INJ 4 MG/1 ML VIAL IV SCH ×4 (05:37→23:37)
[2018-08-02] MEDS: DILTIAZEM HCL 60 MG TABLET NG SCH ×4 (05:38→23:37)
[2018-08-02] MEDS ORDERED: PROPOFOL 1,000 MG/100 ML INFUS..BTL IV ONE (09:52)
[2018-08-02] MEDS: PROPOFOL 1,000 MG/100 ML INFUS..BTL IV PRN ×3 (10:10→21:42)
[2018-08-02] MEDS ORDERED: PROPOFOL INJ 200 MG/20 ML VIAL IV ONE (10:23)
[2018-08-02] MEDS ORDERED: PHARMACY COMMUNICATION ORDER MC NR (10:30)
--- NOTE | 2018-08-02 11:09 | RADIOLOGY REPORT (SQ) ---
EXAM DESCRIPTION: CHEST SINGLE VIEW COMPLETED DATE/TIME: 08/02/2018 10:44 am REASON FOR STUDY: ET placement COMPARISON: 08/01/2018. EXAM PARAMETERS: NUMBER OF VIEWS: One view. TECHNIQUE: Single frontal radiographic view of the chest acquired. RADIATION DOSE: NA LIMITATIONS: None. FINDINGS: LUNGS AND PLEURA: Increasing infiltrate in the right upper lobe. No pleural effusion. MEDIASTINUM AND HILAR STRUCTURES: No masses. Contour normal. HEART AND VASCULAR STRUCTURES: Borderline cardiomegaly. Central vascular congestion. BONES: No acute findings. HARDWARE: Endotracheal tube with the tip located 3 cm proximal to the juhi. Nasogastric tube with the distal portion curving at the gastroesophageal junction and the tip in the lower esophagus. Stab le central line. OTHER: No other significant finding. IMPRESSION: 1. ENDOTRACHEAL TUBE APPEARS TO BE IN SATISFACTORY POSITION. THE NASOGASTRIC TUBE WILL NEED TO BE RE POSITIONED. 2. INCREASING INFILTRATE IN THE RIGHT UPPER LOBE. TECHNICAL DOCUMENTATION: JOB ID: [id number] [employer]- All Rights Reserved Reading location - IP/workstation name: [email or web address]
[2018-08-02 11:25] LABS: ARTERIAL BLOOD BASE EXCESS -5.7 mmol/L; ARTERIAL BLOOD H2CO3 1.11 mmol/L (1.05-1.35); ARTERIAL BLOOD HCO3 19.4 mmol/L (20-24); ARTERIAL BLOOD O2 SATURATION 95.2 % (94-98); ARTERIAL BLOOD PCO2 36.8 mmHg (35-45); ARTERIAL BLOOD PH 7.34 (7.35-7.45); ARTERIAL BLOOD PO2 79.4 mmHg (80-100); ARTERIAL BLOOD TOTAL CO2 20.5 mmol/L (21-25)
[2018-08-02 11:26] LABS: ARTERIAL BLOOD FIO2 40%
[2018-08-02] MEDS: CEFTRIAXONE 2 GM/D5W RTU 2 GM/50 ML RTUPB IV SCH ×2 (11:47→21:29)
[2018-08-02] MEDS: METOPROLOL TARTRATE 50 MG TABLET NG SCH ×2 (11:47→21:33)
[2018-08-02] MEDS: FUROSEMIDE INJ/PF 20 MG/2 ML SDV IV SCH (11:48)
[2018-08-02] MEDS: HEPARIN SOD (PORCINE) 5,000 UNIT/ML 1 ML SYRINGE SUBCUT SCH ×2 (11:48→21:33)
[2018-08-02] MEDS ORDERED: SUCCINYLCHOLINE CHLORIDE INJ 200 MG/10 ML VIAL ONE (12:48)
--- NOTE | 2018-08-02 16:08 | Progress Note ---
Provider Note Provider Note: ID Consult - Brief Update Pt not seen or examined. Reviewed chart and discussed pt with Dr Davies via telephone. To recapitulate presentation and course, pt is an 82 year old woman who came to [facility] 4 days ago with worsening confusion and headache. Symptom onset was reported to be in the past week, with more acute progression over the past 2-3 days prior to presentation. Information from the patient's family does not suggest a longer duration of illness. 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 Her family also reported she had a GI infection approximately 2 months ago with a few weeks of diarrhea that was evaluated and had resolved. She has not been febrile since day of admission, but she remains altered. This morning she was diaphoretic and had increased work of breathing with retractions and accessory muscle use noted. She was intubated. Impression/Recommendations Human diseases that might be more common with poultry exposure range from - gastroenteritis due to Salmonella, Campylobacter, and E. coli infections (no symptoms on presentation to suggest this) - to leola influenza (rare, severe, has not reported in the [place]) - to West Nile Virus infection (this is the appropriate season for a mosquito borne disease and birds are reservoirs, can range from asymptomatic to neuroinvasive) - to histoplasmosis (can cause pneumonitis and more likely to be symptomatic in older adults but [place] is not a highly endemic area, although some cases still occur here) - to cryptococcosis (can be found in bird feces, including chickens, and enters the body through inhalation, but cryptococcal pneumonia is uncommon, particularly in non-immunocompromised patients and tends to present with pulmonary nodules; cryptococcal meningoencephalitis would be expected to present with a subacute/chronic meningitis with low glucose, high opening pressure, and symptoms over weeks rather than a few days) The patient may hae a viral encephalitis, although this is typically associated with a CSF pleocytosis, with the most common epidemic and sporadic causes being West Nile Virus encephalitis or HSV encephalitis. - HSV PCR of the CSF was sent. - If there is still CSF available from the previous tap (or if she has another LP), CSF IgM for West Nile virus would be the best test to send. WNV IgM of the serum could also be sent. - There is no specific treatment for viral encephalitis apart from acyclovir for HSV encephalitis. Would continue acyclovir until HSV encephalitis can be ruled out. - The CSF profile and duration of symptoms prior to presentation are not suggestive of [employer] infection due to a fungal etiology, such as Cyptococcus or Histoplasma. - The presence of blood in the CSF fluid alters the cell count and protein levels, making the diagnosis of an infection more difficult. The patient's CSF findings are most compatible with a traumatic tap (red color, 34,000 RBCs) and if corrected for # of RBCs, the WBC count is either entirely normal or near normal. The protein in CSF is still elevated after correction, but this is also unfortunately non-specific. If she remains altered, repeat LP can be considered to try to obtain a better sample, to have a clearer picture of what her CSF glucose, protein, and WBC count truly are. From the standpoint of a pneumonia, urine Histoplasma antigen has been ordered, along with sputum culture and Gram stain, and Legionella urine antigen. Currently she is receiving Rocephin. The addition of atypical coverage is reasonable. Clinical features that can increase the index of suspicion for Legionella include hyponatremia (absent), GI symptoms (again, absent prior to current illness), elevation in hepatic transaminases (present, mildly), and altered mental status. The patient had a QTc of 499 when she first presented. Azithromycin would be a preferred agent, and if started, optimizing potassium and magnesium and checking a repeat EKG can be done. If needed, doxycycline would not prolong QTc and could be used as an alternative agent. Edgar Wright MD [facility] Infectious Diseases pager [phone]
--- NOTE | 2018-08-02 18:22 | PDOC PROGRESS REPORT ---
Subjective Progress Note for:: 08/01/18 Subjective:: Patient is grunting. She is tachycardic as well Reason For Visit: ACUTE ENCEPHALOPATHY, R/O MENINGITIS Physical Exam Vital Signs: Temp Pulse Resp BP Pulse Ox 98.2 F 78 19 144/85 H 94 08/01/18 10:03 08/01/18 09:25 08/01/18 10:03 08/01/18 10:03 08/01/18 10:03 Intake & Output 07/31/18 08/01/18 08/02/18 06:59 06:59 06:59 Intake Total 2949 2956 94 Output Total 1655 2280 0 Balance 1294 676 94 Weight 67.7 kg 67.8 kg General appearance: PRESENT: mild distress, well-developed Eye exam: PRESENT: conjunctiva pale. ABSENT: scleral icterus Ear exam: PRESENT: normal external ear exam Throat exam: PRESENT: other - Nasogastric tube in place Respiratory exam: PRESENT: rhonchi - Likely more on the right. Difficult to auscultate due to grunting noises., symmetrical. ABSENT: accessory muscle use, wheezes Cardiovascular exam: PRESENT: +S1, +S2, tachycardia. ABSENT: diastolic murmur, systolic murmur Pulses: PRESENT: +1 pedal pulses bilateral GI/Abdominal exam: PRESENT: normal bowel sounds, soft. ABSENT: distended, tenderness Rectal exam: PRESENT: deferred Gentrourinary exam: PRESENT: indwelling catheter Extremities exam: PRESENT: other - Slight edema hands.. ABSENT: pedal edema Neurological exam: PRESENT: awake. ABSENT: alert, oriented to person - Unable to assess Psychiatric exam: PRESENT: agitated Focused psych exam: PRESENT: restlessness, other - No response to verbal s timulus Skin exam: PRESENT: dry, normal color, warm Results Laboratory Results: 08/01/18 04:45 08/01/18 04:45 08/01/18 08/01/18 08/01/18 04:45 04:45 04:45 WBC 12.5 H RBC 3.66 L Hgb 11.7 L Hct 35.8 L MCV 98 H MCH 32.1 MCHC 32.8 RDW 14.0 Plt Count 175 Seg Neutrophils % Not Reportable Lymphocytes % Not Reportable Monocytes % Not Reportable Eosinophils % Not Reportable Basophils % Not Reportable Absolute Neutrophils Not Reportable Absolute Lymphocytes Not Reportable Absolute Monocytes Not Reportable Absolute Eosinophils Not Reportable Absolute Basophils Not Reportable Carbonic Acid 0.93 L HCO3/H2CO3 Ratio 18:1 ABG pH 7.37 ABG pCO2 30.9 L ABG pO2 61.4 L ABG HCO3 17.4 L ABG O2 Saturation 91.3 L ABG Base Excess -6.7 FiO2 10 L Sodium 145.9 H Potassium 3.5 L Chloride 118 H Carbon Dioxide 19 L Anion Gap 9 BUN 38 H Creatinine 2.60 H Est GFR ( Amer) 21 L Est GFR (Non-Af Amer) 18 L Glucose 155 H Calcium 8.5 Phosphorus 5.4 H Magnesium 1.7 07/31/18 04:30 Tracheal Aspirate Gram Stain - Final 07/31/18 04:30 Tracheal Aspirate Sputum Culture - Final 07/29/18 22:15 Catheterized Urine Urine Culture - Final NO GROWTH 2 DAYS 07/29/18 07/29/18 07/30/18 10:42 10:42 04:10 Creatine Kinase 176 H CK-MB (CK-2) Troponin I 0.021 NT-Pro-B Natriuret Pep 1490 H 07/31/18 07/31/18 03:05 03:05 Creatine Kinase 708 H CK-MB (CK-2) 14.10 H Troponin I NT-Pro-B Natriuret Pep Impressions: Head CT 07/29/18 10:41 IMPRESSION: MILD CHRONIC CHANGES OF ATROPHY AND MICROVASCULAR ISCHEMIA. NO ACUTE PROCESS. EVIDENCE OF ACUTE STROKE: NO. Guidance Fluoroscopy 07/29/18 12:37 IMPRESSION: Attempted Lumbar puncture under fluoroscopy. Recommend conscious sedation with anesthesia assistance. Chest X-Ray 08/01/18 06:00 IMPRESSION: Pulmonary vascular congestion is present with minimal perihilar airspace disease left greater than right. This could represent mild fluid overload or congestive failure. Early or developing pneumonia could not be excluded. Assessment and Plan - Diagnosis (1) Acute encephalopathy Is this a current diagnosis for this admission?: Yes Plan: 07/29: CT head is unremarkable. TSH is elevated but level is not typically severely at a level that would cause myxedema coma. Check T3 and T4. With a recent history of headache and fever and acute confusion, will need to rule out meningitis. LP by radiology has been requested in the ER. Will start empirically with IV antibiotics. 07/30: Improving. She is going for an LP soon. Note she went into AFib. No focal or unilateral neuro deficits. Continue Cardizem drip. Will discuss anticoagulation with family. 07/31: Patient became agitated last night around 10 PM requiring Haldol and Ativan. She is lethargic and occasionally agitated but is she currently protecting her airway and is saturating well on nasal cannula. Her initial CSF analysis is not consistent with bacterial meningitis but may possibly be suggestive of viral meningitis. Will await further ID recommendations. 08/01/2017-the patient is calm this morning but still not responding to verbal stimulus. The work-up thus far for her encephalopathy is negative. I did speak with the infectious disease physician from [facility] and we are going to send spinal fluid for HSV PCR. We will continue the acyclovir. No other cause of an acute encephalopathy is apparent at this time. Continue current measures. (2) Atrial fibrillation Is this a current diagnosis for this admission?: Yes Plan: Currently on Cardizem drip. She will is on Cardizem p.o. at home but family briefly mentioned that this was for her hypertension. Will further discuss anticoagulation. Reviewed records from [place]. Patient apparently has history of paroxysmal A. fib. a few months back, she was told to discuss anticoagulation with her PCP. Discussed with family, who says that this has not been brought to their attention. Discussed benefits and risk of anticoagulation and they will discuss this further. 07/31: Family is still undecided about anticoagulation. CHADVASC score of 5, HAS-BLED score is high at 3. Note that HAS BLED is high at this time due to acute renal failure. Reassess and rediscuss with family when renal function has recovered. 08/01/2017-I am going to start diltiazem through the nasogastric tube as well as metoprolol. Would like to get her off of the diltiazem drip. If we can get her off the pump we can consider an MRI to further assess her brain. If the medications resolve the rapid ventricular response and if sinus rhythm is achieved then certainly the anticoagulation discussion and will be put on hold at this time. (3) COPD (chronic obstructive pulmonary disease) Is this a current diagnosis for this admission?: Yes Plan: Not in exacerbation. Breathing treatments as needed. 08/01/2018-she is currently on antibiotics for possible pneumonia. She has nebulized treatments available. Breathing is comfortable at this time. (4) Hypothyroidism Qualifiers: Hypothyroidism type: unspecified Qualified Code(s): E03.9 - Hypothyroidism, unspecified Is this a current diagnosis for this admission?: Yes Plan: On Synthroid at home. TSH elevated. T3 and T4 normal. 08/01/2018-now that she has a nasogastric tube I will resume her levothyroxine. (5) Hypertension Is this a current diagnosis for this admission?: Yes Plan: Controlled. Currently on Cardizem drip. 08/01/2018-still with intermittent elevated blood pressures. I will reevaluate on the new medication regimen and adjust her medications if required. (6) Pneumonia Qualifiers: Pneumonia type: due to unspecified organism Is this a current diagnosis for this admission?: Yes Plan: CXR shows possible LL PNA. On IV antibiotics. Sputum culture ordered. 08/01/2018-awaiting sputum culture. We will continue antibiotics at this time. (7) Acute kidney injury Is this a current diagnosis for this admission?: Yes Plan: Her urine output improved with IV fluid bolus. Increase fluids to 125 cc/hr. Repeat BMP tomorrow. 08/01/2018-urine output is improved unfortunately the serum creatinine is higher today. We will continue gentle IV fluids and monitor her function. With the elevated creatinine and her blood culture growing a coagulase-negative staph, which is likely contaminant, we will discontinue the vancomycin. - Time Time Spent with patient: 35 or more minutes Medications reviewed and adjusted accordingly: Yes
[2018-08-03] MEDS: ACYCLOVIR SODIUM 700 MG in NORMAL SALINE 100 ML IV SCH ×3 (01:01→17:06)
[2018-08-03] MEDS: FENTANYL CITRATE INJ/PF 100 MCG/2 ML AMPUL IV PRN ×3 (01:37→17:07)
[2018-08-03 04:26] LABS: ABSOLUTE LYMPHOCYTES (AUTO) 0.5 10^3/uL (0.5-4.7); ABSOLUTE MONOCYTES (AUTO) 0.2 10^3/uL (0.1-1.4); ABSOLUTE NEUT (AUTO) 6.6 10^3/uL (1.7-8.2); ARTERIAL BLOOD BASE EXCESS -3.6 mmol/L; ARTERIAL BLOOD FIO2 35%; ARTERIAL BLOOD HCO3 18.6 mmol/L (20-24); ARTERIAL BLOOD O2 SATURATION 96.9 % (94-98); ARTERIAL BLOOD PCO2 26.6 mmHg (35-45); ARTERIAL BLOOD PH 7.46 (7.35-7.45); ARTERIAL BLOOD PO2 83.2 mmHg (80-100); ARTERIAL BLOOD TOTAL CO2 19.4 mmol/L (21-25); BASOPHILS % (AUTO) 0.4 % (0-2); EOSINOPHILS % (AUTO) 0.1 % (0-6); HEMATOCRIT 34.7 % (36.0-47.0); HEMOGLOBIN 11.6 g/dL (12.0-15.5); LYMPHOCYTES % (AUTO) 6.9 % (13-45); MEAN CORPUSCULAR HEMOGLOBIN 32.5 pg (27.0-33.4); MEAN CORPUSCULAR HGB CONC 33.6 g/dL (32.0-36.0); MEAN CORPUSCULAR VOLUME 97 fl (80-97); MONOCYTES % (AUTO) 2.9 % (3-13); PLATELET COUNT 155 10^3/uL (150-450); RED BLOOD COUNT 3.58 10^6/uL (3.72-5.28); RED CELL DISTRIBUTION WIDTH 14.2 % (11.5-14.0); SEGMENTED NEUTROPHILS % (AUTO) 89.7 % (42-78); TOTAL CELLS COUNTED % (AUTO) 100 %; WHITE BLOOD COUNT 7.4 10^3/uL (4.0-10.5)
[2018-08-03 04:42] LABS: ALANINE AMINOTRANSFERASE 71 U/L (9-52); ALKALINE PHOSPHATASE 67 U/L (38-126); ANION GAP 8 (5-19); ASPARTATE AMINO TRANSFERASE 59 U/L (14-36); BILIRUBIN,DIRECT 0.4 mg/dL (0.0-0.4); BILIRUBIN,TOTAL 0.4 mg/dL (0.2-1.3); BLOOD UREA NITROGEN 64 mg/dL (7-20); CALCIUM 8.8 mg/dL (8.4-10.2); CARBON DIOXIDE 22 mmol/L (22-30); CHLORIDE 115 mmol/L (98-107); GLUCOSE 160 mg/dL (75-110); POTASSIUM 3.5 mmol/L (3.6-5.0); SODIUM 145.3 mmol/L (137-145); TOTAL PROTEIN 5.5 g/dL (6.3-8.2)
[2018-08-03] MEDS: DEXAMETHASONE SOD PHOSPHATE INJ 4 MG/1 ML VIAL IV SCH ×4 (05:29→23:19)
[2018-08-03] MEDS: DILTIAZEM HCL 60 MG TABLET NG SCH ×4 (05:30→23:20)
[2018-08-03] MEDS: LEVOTHYROXINE SODIUM 0.075 MG TABLET PO SCH (05:30)
[2018-08-03] MEDS: PROPOFOL 1,000 MG/100 ML INFUS..BTL IV PRN ×3 (05:52→20:48)
[2018-08-03] MEDS ORDERED: LEVALBUTEROL HCL NEB 0.63 MG/3 ML AMPUL NEB PRN (06:13)
--- NOTE | 2018-08-03 06:22 | PDOC PROGRESS REPORT ---
Subjective Progress Note for:: 08/02/18 Subjective:: The patient's breathing is worse this morning. Yesterday afternoon the nurse called me and said that she was somewhat labored and so we stopped IV fluids and gave her Lasix. This morning however she is exhibiting significantly increased work of breathing and after discussion with the patient's son as well as pulmonology it was decided to intubate the patient. Reason For Visit: ACUTE ENCEPHALOPATHY, R/O MENINGITIS Physical Exam Vital Signs: Temp Pulse Resp BP Pulse Ox 98.8 F 80 16 166/80 H 98 08/02/18 16:00 08/02/18 16:27 08/02/18 16:27 08/02/18 16:00 08/02/18 16:27 Intake & Output 08/01/18 08/02/18 08/03/18 06:59 06:59 06:59 Intake Total 2956 1402 186 Output Total 2280 1600 570 Balance 676 198 -384 Weight 67.8 kg 68.2 kg General appearance: PRESENT: severe distress - Greatly improved with intubation and sedation, well-developed Head exam: PRESENT: atraumatic, normocephalic Mouth exam: PRESENT: other - Nasogastric and endotracheal tubes in place Neck exam: ABSENT: lymphadenopathy, thyromegaly, tracheal deviation Respiratory exam: PRESENT: accessory muscle use - The patient was using acce ssory muscles prior to intubation., rales - At the bases, rhonchi - On the left, symmetrical, unlabored - Since intubated. Markedly increased work of breathing prior to intubation.. ABSENT: tachypnea - The patient was tachypneic prior to intubation., wheezes Cardiovascular exam: PRESENT: diastolic murmur, RRR, +S1, +S2 GI/Abdominal exam: PRESENT: hypoactive bowel sounds, soft. ABSENT: distended, tenderness Rectal exam: PRESENT: deferred, other - Staff reports no diarrhea Gentrourinary exam: PRESENT: indwelling catheter Extremities exam: ABSENT: joint swelling, pedal edema Musculoskeletal exam: PRESENT: normal inspection Neurological exam: PRESENT: other - No response to verbal stimulus. She does respond to the discomfort with the endotracheal tube.. ABSENT: awake Focused psych exam: PRESENT: other - No verbal interaction. Does not respond to verbal stimuli. Results Laboratory Results: 08/02/18 04:18 08/02/18 04:18 08/01/18 08/01/18 08/02/18 18:25 21:34 04:18 WBC RBC Hgb Hct MCV MCH MCHC RDW Plt Count Carbonic Acid 1.00 L 1.02 L HCO3/H2CO3 Ratio 18:1 18:1 ABG pH 7.37 7.37 ABG pCO2 33.1 L 33.9 L ABG pO2 85.6 110.1 H ABG HCO3 18.6 L 19.3 L ABG O2 Saturation 96.3 98.0 ABG Base Excess -5.7 -5.0 FiO2 10L 10L Sodium Potassium Chloride Carbon Dioxide Anion Gap BUN Creatinine 2.62 H Est GFR ( Amer) 21 L Est GFR (Non-Af Amer) 18 L Glucose Calcium Magnesium Total Bilirubin AST ALT Alkaline Phosphatase Total Protein Albumin 08/02/18 08/02/18 08/02/18 04:18 04:18 11:05 WBC 13.0 H RBC 3.58 L Hgb 11.7 L Hct 35.0 L MCV 98 H MCH 32.6 MCHC 33.4 RDW 14.4 H Plt Count 174 Carbonic Acid 1.11 HCO3/H2CO3 Ratio 17:1 ABG pH 7.34 L ABG pCO2 36.8 ABG pO2 79.4 L ABG HCO3 19.4 L ABG O2 Saturation 95.2 ABG Base Excess -5.7 FiO2 40% Sodium 145.9 H Potassium 3.8 Chloride 116 H Carbon Dioxide 21 L Anion Gap 9 BUN 51 H Creatinine 2.59 H Est GFR ( Amer) 22 L Est GFR (Non-Af Amer) 18 L Glucose 143 H Calcium 8.9 Magnesium 1.8 Total Bilirubin 0.4 AST 51 H ALT 55 H Alkaline Phosphatase 67 Total Protein 5.5 L Albumin 3.1 L 07/29/18 10:42 Blood Blood Culture - Final Staphylococcus Hominis 07/30/18 11:08 Cerebral Spinal Fluid - Tube 1 (Csf) Gram Stain - Final 07/30/18 11:08 Cerebral Spinal Fluid - Tube 1 (Csf) CSF Culture - Final NO GROWTH 3 DAYS 07/29/18 07/29/18 07/30/18 10:42 10:42 04:10 Creatine Kinase 176 H CK-MB (CK-2) Troponin I 0.021 NT-Pro-B Natriuret Pep 1490 H 07/31/18 07/31/18 03:05 03:05 Creatine Kinase 708 H CK-MB (CK-2) 14.10 H Troponin I NT-Pro-B Natriuret Pep Impressions: Head CT 07/29/18 10:41 IMPRESSION: MILD CHRONIC CHANGES OF ATROPHY AND MICROVASCULAR ISCHEMIA. NO ACUTE PROCESS. EVIDENCE OF ACUTE STROKE: NO. Guidance Fluoroscopy 07/29/18 12:37 IMPRESSION: Attempted Lumbar puncture under fluoroscopy. Recommend conscious sedation with anesthesia assistance. KUB X-Ray 08/01/18 10:30 IMPRESSION: NG tube is doubled back upon itself at the GE junction. Chest X-Ray 08/02/18 00:00 IMPRESSION: 1. ENDOTRACHEAL TUBE APPEARS TO BE IN SATISFACTORY POSITION. THE NASOGASTRIC TUBE WILL NEED TO BE REPOSITIONED. 2. INCREASING INFILTRATE IN THE RIGHT UPPER LOBE. Assessment and Plan - Diagnosis (1) Acute encephalopathy Is this a current diagnosis for this admission?: Yes Plan: 07/29: CT head is unremarkable. TSH is elevated but level is not typically sever marian at a level that would cause myxedema coma. Check T3 and T4. With a recent history of headache and fever and acute confusion, will need to rule out meningitis. LP by radiology has been requested in the ER. Will start empirically with IV antibiotics. 07/30: Improving. She is going for an LP soon. Note she went into AFib. No focal or unilateral neuro deficits. Continue Cardizem drip. Will discuss anticoagulation with family. 07/31: Patient became agitated last night around 10 PM requiring Haldol and Ativan. She is lethargic and occasionally agitated but is she currently protecting her airway and is saturating well on nasal cannula. Her initial CSF analysis is not consistent with bacterial meningitis but may possibly be suggestive of viral meningitis. Will await further ID recommendations. 08/01/2018-the patient is calm this morning but still not responding to verbal stimulus. The work-up thus far for her encephalopathy is negative. I did speak with the infectious disease physician from [facility] and we are going to send spinal fluid for HSV PCR. We will continue the acyclovir. No other cause of an acute encephalopathy is apparent at this time. Continue current measures. 08/02/2018-reviewed the case with infectious diseases. There is still no identified source for the encephalopathy. Multiple possibilities exist. Spinal fluid is no growth so far. HSV-PCR has been added to the test list but this is a send out and results will not be back for several days. The family reported that the patient does have chickens, turkeys and kidney foul. Testing will be broadened to cover potential infections transmitted by poultry. We are going to order an MRI study today. The patient's breathing has worsened (2) Atrial fibrillation Is this a current diagnosis for this admission?: Yes Plan: Currently on Cardizem drip. She will is on Cardizem p.o. at home but family briefly mentioned that this was for her hypertension. Will further discuss anticoagulation. Reviewed records from [place]. Patient apparently has history of paroxysmal A. fib. a few months back, she was told to discuss anticoagulation with her PCP. Discussed with family, who says that this has not been brought to their attention. Discussed benefits and risk of anticoagulation and they will discuss this further. 07/31: Family is still undecided about anticoagulation. CHADVASC score of 5, HAS-BLED score is high at 3. Note that HAS BLED is high at this time due to acute renal failure. Reassess and rediscuss with family when renal function has recovered. 08/01/2017-I am going to start diltiazem through the nasogastric tube as well as metoprolol. Would like to get her off of the diltiazem drip. If we can get her off the pump we can consider an MRI to further assess her brain. If the medications resolve the rapid ventricular response and if sinus rhythm is achieved then certainly the anticoagulation discussion and will be put on hold at this time. 08/02/2018-on her current regimen she has exhibited good pulse control (diltiazem and metoprolol). She is off of the diltiazem drip. Continue current medications. (3) COPD (chronic obstructive pulmonary disease) Is this a current diagnosis for this admission?: Yes Plan: Not in exacerbation. Breathing treatments as needed. 08/01/2018-she is currently on antibiotics for possible pneumonia. She has nebulized treatments available. Breathing is comfortable at this time. 08/02/2018-she remains on Rocephin for possible pneumonia. I have changed her nebulizer treatments to Xopenex and ipratropium every 6 hours scheduled and Xopenex every 3 hours if needed. 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 (4) Hypothyroidism Qualifiers: Hypothyroidism type: unspecified Qualified Code(s): E03.9 - Hypothyroidism, unspecified Is this a current diagnosis for this admission?: Yes Plan: On Synthroid at home. TSH elevated. T3 and T4 normal. 08/01/2018-now that she has a nasogastric tube I will resume her levothyroxine. 08/02/2018-she is back on her regular dose of levothyroxine. (5) Hypertension Is this a current diagnosis for this admission?: Yes Plan: Controlled. Currently on Cardizem drip. 08/01/2018-still with intermittent elevated blood pressures. I will reevaluate on the new medication regimen and adjust her medications if required. 08/02/2018-reasonable control on current regimen. (6) Pneumonia Qualifiers: Pneumonia type: due to unspecified organism Is this a current diagnosis for this admission?: Yes Plan: CXR shows possible LL PNA. On IV antibiotics. Sputum culture ordered. 08/01/2018-awaiting sputum culture. We will continue antibiotics at this time. 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 Her white blood cell count is up to 13.0 today. (7) Acute kidney injury Is this a current diagnosis for this admission?: Yes Plan: Her urine output improved with IV fluid bolus. Increase fluids to 125 cc/hr. Repeat BMP tomorrow. 08/01/2018-urine output is improved unfortunately the serum creatinine is higher today. We will continue gentle IV fluids and monitor her function. With the elevated creatinine and her blood culture growing a coagulase-negative staph, which is likely contaminant, we will discontinue the vancomycin. 08/02/2018-her serum creatinine is slightly better today. Unfortunately her BUN is higher. We may need to administer more free water through the nasogastric tube. She also may need resumption of IV fluids. (8) Pulmonary hypertension Is this a current diagnosis for this admission?: Yes Plan: 08/02/2018-we did review the echocardiogram obtained during this hospitalization. She does have significant pulmonary hypertension with right ventricular systolic pressures between 59 and 64. (9) Tricuspid regurgitation Qualifiers: Cardiac valve disease etiology: nonrheumatic Qualified Code(s): I36.1 - Nonrheumatic tricuspid (valve) insufficiency Is this a current diagnosis for this admission?: Yes Plan: The echocardiogram revealed moderate to severe tricuspid regurgitation. (10) Acute diastolic heart failure Is this a current diagnosis for this admission?: Yes Plan: 08/02/2018-the echocardiogram also revealed grade 1/4 diastolic dysfunction. Systolic function is intact with an ejection fraction of 75%. (11) Acute and chronic respiratory failure with hypoxia Is this a current diagnosis for this admission?: Yes Plan: 08/02/2018-due to increased work of breathing and worsening shortness of breath with hypoxia it was decided to electively intubate the patient. We will try and keep sedation to a minimum as we are looking for neurologic recovery. Pulmonology is consulting as well. - Time Time Spent with patient: 35 or more minutes Medications reviewed and adjusted accordingly: Yes - Plan Summary Plan Summary: A bedside discussion was had with the patient's son and sister. 25 minutes was dedicated to reviewing the case, progress or lack thereof and prognosis. Pulmonology was also involved in this discussion specifically regarding respiratory failure and intubation.
[2018-08-03] MEDS: IPRATROPIUM BROMIDE 0.02% NEB 0.5 MG/2.5 ML AMPUL NEB SCH ×3 (07:35→20:55)
[2018-08-03] MEDS: LEVALBUTEROL HCL NEB 0.63 MG/3 ML AMPUL NEB SCH ×3 (07:35→20:55)
--- NOTE | 2018-08-03 08:48 | RADIOLOGY REPORT (SQ) ---
EXAM DESCRIPTION: CHEST SINGLE VIEW COMPLETED DATE/TIME: 08/03/2018 6:20 am REASON FOR STUDY: resp failure COMPARISON: Chest films 07/29/2018, 07/30/2018, 07/31/2018, 08/01/2018, 08/02/2018 EXAM PARAMETERS: NUMBER OF VIEWS: One view. TECHNIQUE: Single frontal radiographic view of the chest acquired. RADIATION DOSE: NA LIMITATIONS: None. FINDINGS: LUNGS AND PLEURA: Partial clearing of the right upper lobe and left perihilar consolidatio n compared to previous study. No pleural effusion. No pneumothorax. MEDIASTINUM AND HILAR STRUCTURES: No masses. Contour normal. HEART AND VASCULAR STRUCTURES: No cardiomegaly BONES: No acute findings. HARDWARE: Endotracheal tube tip 3 to 4 cm above the juhi. Nasogastric tube tip and side port in th e stomach. Left jugular central line tip superior vena cava. OTHER: No other significant finding. IMPRESSION: Partial clearing of the right upper lobe and left perihilar airspace disease compared to 08/02/2018 TECHNICAL DOCUMENTATION: JOB ID: [id number] [employer]- All Rights Reserved Reading location - IP/workstation name: [email or web address]
[2018-08-03] MEDS: ASPIRIN 81 MG TABLET, ENT COATED PO SCH (11:13)
[2018-08-03] MEDS: HEPARIN SOD (PORCINE) 5,000 UNIT/ML 1 ML SYRINGE SUBCUT SCH ×2 (11:13→21:54)
[2018-08-03] MEDS: FUROSEMIDE INJ/PF 20 MG/2 ML SDV IV SCH (11:14)
[2018-08-03] MEDS: CEFTRIAXONE 2 GM/D5W RTU 2 GM/50 ML RTUPB IV SCH ×2 (11:14→21:37)
[2018-08-03] MEDS: METOPROLOL TARTRATE 50 MG TABLET NG SCH ×2 (11:14→21:34)
[2018-08-03] MEDS: PANTOPRAZOLE SODIUM 40 MG VIAL IV SCH (21:36)
[2018-08-03] MEDS: LORAZEPAM INJ 2 MG/1 ML VIAL IV PRN (21:40)
--- NOTE | 2018-08-03 23:00 | EKG REPORT ---
SEVERITY:- ABNORMAL ECG - SINUS RHYTHM VENTRICULAR PREMATURE COMPLEX BORDERLINE LEFT AXIS DEVIATION NONSPECIFIC T ABNORMALITIES, LATERAL LEADS : Confirmed by: Alondra Adan 03-Aug-2018 22:59:58
[2018-08-04] MEDS: ACYCLOVIR SODIUM 700 MG in NORMAL SALINE 100 ML IV SCH ×2 (01:53→10:25)
[2018-08-04] MEDS: PROPOFOL 1,000 MG/100 ML INFUS..BTL IV PRN ×3 (02:59→14:48)
[2018-08-04] MEDS: LEVALBUTEROL HCL NEB 0.63 MG/3 ML AMPUL NEB SCH ×4 (03:02→20:40)
[2018-08-04] MEDS: IPRATROPIUM BROMIDE 0.02% NEB 0.5 MG/2.5 ML AMPUL NEB SCH ×4 (03:02→20:39)
[2018-08-04 05:54] LABS: ARTERIAL BLOOD BASE EXCESS -4.9 mmol/L; ARTERIAL BLOOD H2CO3 0.86 mmol/L (1.05-1.35); ARTERIAL BLOOD HCO3 18.3 mmol/L (20-24); ARTERIAL BLOOD O2 SATURATION 98.1 % (94-98); ARTERIAL BLOOD PCO2 28.5 mmHg (35-45); ARTERIAL BLOOD PH 7.43 (7.35-7.45); ARTERIAL BLOOD PO2 106.9 mmHg (80-100); ARTERIAL BLOOD TOTAL CO2 19.2 mmol/L (21-25)
[2018-08-04 05:55] LABS: ARTERIAL BLOOD FIO2 35%
[2018-08-04 06:04] LABS: ABSOLUTE LYMPHOCYTES (AUTO) 0.5 10^3/uL (0.5-4.7); ABSOLUTE MONOCYTES (AUTO) 0.2 10^3/uL (0.1-1.4); ABSOLUTE NEUT (AUTO) 6.1 10^3/uL (1.7-8.2); BASOPHILS % (AUTO) 0.1 % (0-2); HEMATOCRIT 33.4 % (36.0-47.0); HEMOGLOBIN 11.3 g/dL (12.0-15.5); LYMPHOCYTES % (AUTO) 7.9 % (13-45); MEAN CORPUSCULAR HEMOGLOBIN 32.8 pg (27.0-33.4); MEAN CORPUSCULAR HGB CONC 33.9 g/dL (32.0-36.0); MEAN CORPUSCULAR VOLUME 97 fl (80-97); MONOCYTES % (AUTO) 3.1 % (3-13); PLATELET COUNT 131 10^3/uL (150-450); RED BLOOD COUNT 3.45 10^6/uL (3.72-5.28); RED CELL DISTRIBUTION WIDTH 13.9 % (11.5-14.0); SEGMENTED NEUTROPHILS % (AUTO) 88.9 % (42-78); TOTAL CELLS COUNTED % (AUTO) 100 %; WHITE BLOOD COUNT 6.8 10^3/uL (4.0-10.5)
[2018-08-04] MEDS: LORAZEPAM INJ 2 MG/1 ML VIAL IV PRN (06:28)
[2018-08-04] MEDS: DEXAMETHASONE SOD PHOSPHATE INJ 4 MG/1 ML VIAL IV SCH ×4 (06:28→23:51)
[2018-08-04] MEDS: DILTIAZEM HCL 60 MG TABLET NG SCH ×4 (06:28→23:51)
[2018-08-04] MEDS: LEVOTHYROXINE SODIUM 0.075 MG TABLET PO SCH (06:29)
[2018-08-04 06:30] LABS: ANION GAP 11 (5-19); BLOOD UREA NITROGEN 69 mg/dL (7-20); CALCIUM 8.6 mg/dL (8.4-10.2); CARBON DIOXIDE 21 mmol/L (22-30); CHLORIDE 112 mmol/L (98-107); GLUCOSE 171 mg/dL (75-110); POTASSIUM 3.3 mmol/L (3.6-5.0); SODIUM 144.2 mmol/L (137-145)
[2018-08-04 08:02] LABS: MYCOPLASMA PNEUMONIAE IGG AB <100 U/mL (0-99); MYCOPLASMA PNEUMONIAE IGM AB <770 U/mL (0-769)
[2018-08-04] MEDS: METOPROLOL TARTRATE 50 MG TABLET NG SCH ×2 (10:23→21:46)
[2018-08-04] MEDS: ASPIRIN 81 MG TABLET, ENT COATED PO SCH (10:24)
[2018-08-04] MEDS: HEPARIN SOD (PORCINE) 5,000 UNIT/ML 1 ML SYRINGE SUBCUT SCH ×2 (10:24→21:46)
[2018-08-04] MEDS: CEFTRIAXONE 2 GM/D5W RTU 2 GM/50 ML RTUPB IV SCH ×2 (10:24→21:46)
[2018-08-04] MEDS: FUROSEMIDE INJ/PF 20 MG/2 ML SDV IV SCH (10:24)
[2018-08-04] MEDS: PANTOPRAZOLE SODIUM 40 MG VIAL IV SCH (10:24)
[2018-08-04] MEDS: POTASSIUM CHLORIDE 20 MEQ/50 ML RTU IV SCH ×2 (13:22→14:48)
[2018-08-04] MEDS: AMINO AC/PROTEIN HYDR/WHEY PRO 11 GM/45 ML PKT NG SCH (17:21)
[2018-08-04] MEDS ORDERED: DEXTROSE 50%-WATER SYRINGE 12.5 GM/25 ML DOSE IV PRN (23:30)
[2018-08-04] MEDS ORDERED: GLUCAGON,HUMAN RECOMB 1 MG INJ IM PRN (23:30)
[2018-08-04] MEDS ORDERED: DEXTROSE 40% GEL 15 GM TUBE X 2 PO PRN (23:30)
[2018-08-04] MEDS ORDERED: DEXTROSE 50%-WATER SYRINGE 25 GM/50 ML DOSE IV PRN (23:30)
[2018-08-04] MEDS ORDERED: DEXTROSE 40% GEL 15 GM TUBE PO PRN (23:30)
[2018-08-04] MEDS: FENTANYL CITRATE INJ/PF 100 MCG/2 ML AMPUL IV PRN (23:49)
[2018-08-04] MEDS: INSULIN LISPRO 100 UNIT/ML 3 ML VIAL SUBCUT SCH (23:53)
[2018-08-05] MEDS ORDERED: HYDRALAZINE HCL INJ/PF 20 MG/1 ML SDV ONE (01:12)
[2018-08-05] MEDS ORDERED: HYDRALAZINE HCL INJ/PF 20 MG/1 ML SDV IV PRN (01:18)
[2018-08-05] MEDS ORDERED: HYDRALAZINE HCL INJ/PF 20 MG/1 ML SDV IV ONE (01:30)
[2018-08-05] MEDS: LEVALBUTEROL HCL NEB 0.63 MG/3 ML AMPUL NEB SCH ×4 (02:25→19:53)
[2018-08-05] MEDS: IPRATROPIUM BROMIDE 0.02% NEB 0.5 MG/2.5 ML AMPUL NEB SCH ×4 (02:25→19:53)
[2018-08-05] MEDS: LORAZEPAM INJ 2 MG/1 ML VIAL IV PRN (04:12)
[2018-08-05] MEDS: FENTANYL CITRATE INJ/PF 100 MCG/2 ML AMPUL IV PRN (04:46)
[2018-08-05 05:12] LABS: HEMATOCRIT 37.9 % (36.0-47.0); HEMOGLOBIN 12.7 g/dL (12.0-15.5); MEAN CORPUSCULAR HEMOGLOBIN 32.3 pg (27.0-33.4); MEAN CORPUSCULAR HGB CONC 33.5 g/dL (32.0-36.0); MEAN CORPUSCULAR VOLUME 96 fl (80-97); PLATELET COUNT 155 10^3/uL (150-450); RED BLOOD COUNT 3.93 10^6/uL (3.72-5.28); RED CELL DISTRIBUTION WIDTH 13.8 % (11.5-14.0)
[2018-08-05 05:14] LABS: ARTERIAL BLOOD BASE EXCESS -1.7 mmol/L; ARTERIAL BLOOD H2CO3 0.93 mmol/L (1.05-1.35); ARTERIAL BLOOD HCO3 21.1 mmol/L (20-24); ARTERIAL BLOOD O2 SATURATION 97.5 % (94-98); ARTERIAL BLOOD PCO2 30.8 mmHg (35-45); ARTERIAL BLOOD PH 7.45 (7.35-7.45); ARTERIAL BLOOD PO2 93.5 mmHg (80-100); ARTERIAL BLOOD TOTAL CO2 22.1 mmol/L (21-25)
[2018-08-05 05:15] LABS: ARTERIAL BLOOD FIO2 40%
[2018-08-05 05:18] LABS: INTERNATIONAL RATION (INR) 1.12; PROTHROMBIN TIME 14.4 SEC (11.4-15.4)
--- NOTE | 2018-08-05 05:27 | PDOC PROGRESS REPORT ---
Subjective Progress Note for:: 08/03/18 Subjective:: The patient appears to be resting comfortably. She does withdraw to uncomfortable stimulus. She withdrew her legs when I squeezed her toes. Still no response to verbal stimulus. Reason For Visit: ACUTE ENCEPHALOPATHY, R/O MENINGITIS Physical Exam Vital Signs: Temp Pulse Resp BP Pulse Ox 99.1 F 89 16 121/61 97 08/03/18 14:22 08/03/18 14:32 08/03/18 14:32 08/03/18 14:22 08/03/18 14:32 Intake & Output 08/02/18 08/03/18 08/04/18 06:59 06:59 06:59 Intake Total 1402 709 264 Output Total 1600 1305 900 Balance -198 -596 -636 Weight 68.2 kg 66.1 kg General appearance: PRESENT: well-developed, other - Intubated and sedated Head exam: PRESENT: atraumatic, normocephalic Ear exam: PRESENT: normal external ear exam Mouth exam: PRESENT: other - Endotracheal and nasogastric tubes in place Respiratory exam: PRESENT: clear to auscultation sridevi, symmetrical. ABSENT: accessory muscle use, rales, rhonchi, tachypnea, wheezes Cardiovascular exam: PRESENT: RRR, +S1, +S2, systolic murmur - 2/6 GI/Abdominal exam: PRESENT: hypoactive bowel sounds, soft. ABSENT: distended, tenderness Rectal exam: PRESENT: deferred Gentrourinary exam: PRESENT: indwelling catheter Extremities exam: ABSENT: joint swelling, pedal edema Musculoskeletal exam: PRESENT: normal inspection Neurological exam: ABSENT: alert, awake Psychiatric exam: PRESENT: flat affect. ABSENT: agitated, anxious Focused psych exam: ABSENT: restlessness Results Laboratory Results: 08/03/18 04:15 08/03/18 04:15 08/03/18 08/03/18 08/03/18 04:15 04:15 04:15 WBC 7.4 RBC 3.58 L Hgb 11.6 L Hct 34.7 L MCV 97 MCH 32.5 MCHC 33.6 RDW 14.2 H Plt Count 155 Seg Neutrophils % 89.7 H Lymphocytes % 6.9 L Monocytes % 2.9 L Eosinophils % 0.1 Basophils % 0.4 Absolute Neutrophils 6.6 Absolute Lymphocytes 0.5 Absolute Monocytes 0.2 Absolute Eosinophils 0.0 Absolute Basophils 0.0 Carbonic Acid 0.80 L HCO3/H2CO3 Ratio 23:1 ABG pH 7.46 H ABG pCO2 26.6 L ABG pO2 83.2 ABG HCO3 18.6 L ABG O2 Saturation 96.9 ABG Base Excess -3.6 FiO2 35% Sodium 145.3 H Potassium 3.5 L Chloride 115 H Carbon Dioxide 22 Anion Gap 8 BUN 64 H Creatinine 2.41 H Est GFR ( Amer) 23 L Est GFR (Non-Af Amer) 19 L Glucose 160 H Calcium 8.8 Magnesium 2.0 Total Bilirubin 0.4 AST 59 H ALT 71 H Alkaline Phosphatase 67 Total Protein 5.5 L Albumin 3.0 L 07/29/18 07/29/18 07/30/18 10:42 10:42 04:10 Creatine Kinase 176 H CK-MB (CK-2) Troponin I 0.021 NT-Pro-B Natriuret Pep 1490 H 07/31/18 07/31/18 03:05 03:05 Creatine Kinase 708 H CK-MB (CK-2) 14.10 H Troponin I NT-Pro-B Natriuret Pep Impressions: Head CT 07/29/18 10:41 IMPRESSION: MILD CHRONIC CHANGES OF ATROPHY AND MICROVASCULAR ISCHEMIA. NO ACUTE PROCESS. EVIDENCE OF ACUTE STROKE: NO. Guidance Fluoroscopy 07/29/18 12:37 IMPRESSION: Attempted Lumbar puncture under fluoroscopy. Recommend conscious sedation with anesthesia assistance. KUB X-Ray 08/01/18 10:30 IMPRESSION: NG tube is doubled back upon itself at the GE junction. Chest X-Ray 08/03/18 06:00 IMPRESSION: Partial clearing of the right upper lobe and left perihilar airspace disease compared to 08/02/2018 Assessment and Plan - Diagnosis (1) Acute encephalopathy Is this a current diagnosis for this admission?: Yes Plan: 07/29: CT head is unremarkable. TSH is elevated but level is not typically severely at a level that would cause myxedema coma. Check T3 and T4. With a recent history of headache and fever and acute confusion, will need to rule out meningitis. LP by radiology has been requested in the ER. Will start empirically with IV antibiotics. 07/30: Improving. She is going for an LP soon. Note she went into AFib. No focal or unilateral neuro deficits. Continue Cardizem drip. Will discuss anticoagulation with family. 07/31: Patient became agitated last night around 10 PM requiring Haldol and Ativan. She is lethargic and occasionally agitated but is she currently protecting her airway and is saturating well on nasal cannula. Her initial CSF analysis is not consistent with bacterial meningitis but may possibly be suggestive of viral meningitis. Will await further ID recommendations. 08/01/2018-the patient is calm this morning but still not responding to verbal stimulus. The work-up thus far for her encephalopathy is negative. I did speak with the infectious disease physician from [facility] and we are going to send spinal fluid for HSV PCR. We will continue the acyclovir. No other cause of an acute encephalopathy is apparent at this time. Continue current measures. 08/02/2018-reviewed the case with infectious diseases. There is still no identified source for the encephalopathy. Multiple possibilities exist. Spinal fluid is no growth so far. HSV-PCR has been added to the test list but this is a send out and results will not be back for several days. The family reported that the patient does have chickens, turkeys and kidney foul. Testing will be broadened to cover potential infections transmitted by poultry. We are going to order an MRI study today. The patient's breathing has worsened 08/03/2018-because the patient is still sedated the EEG that we were considering will not be performed at this time. She is still not responding to verbal stimulus however she does withdraw to painful stimuli. Tests are still pending. Specific cause of the encephalopathy is still undetermined. We will keep her on acyclovir until the final results of analysis are available. (2) Atrial fibrillation Is this a current diagnosis for this admission?: Yes Plan: Currently on Cardizem drip. She will is on Cardizem p.o. at home but family rashida lazaro mentioned that this was for her hypertension. Will further discuss anticoagulation. Reviewed records from [place]. Patient apparently has history of paroxysmal A. fib. a few months back, she was told to discuss anticoagulation with her PCP. Discussed with family, who says that this has not been brought to their attention. Discussed benefits and risk of anticoagulation and they will discuss this further. 07/31: Family is still undecided about anticoagulation. CHADVASC score of 5, HAS-BLED score is high at 3. Note that HAS BLED is high at this time due to acute renal failure. Reassess and rediscuss with family when renal function has recovered. 08/01/2017-I am going to start diltiazem through the nasogastric tube as well as metoprolol. Would like to get her off of the diltiazem drip. If we can get her off the pump we can consider an MRI to further assess her brain. If the me dications resolve the rapid ventricular response and if sinus rhythm is achieved then certainly the anticoagulation discussion and will be put on hold at this time. 08/02/2018-on her current regimen she has exhibited good pulse control (diltiazem and metoprolol). She is off of the diltiazem drip. Continue current medications. 08/03/2018-continues sinus rhythm on current regimen. Continue to monitor. (3) COPD (chronic obstructive pulmonary disease) Is this a current diagnosis for this admission?: Yes Plan: Not in exacerbation. Breathing treatments as needed. 08/01/2018-she is currently on antibiotics for possible pneumonia. She has nebulized treatments available. Breathing is comfortable at this time. 08/02/2018-she remains on Rocephin for possible pneumonia. I have changed her nebulizer treatments to Xopenex and ipratropium every 6 hours scheduled and Xopenex every 3 hours if needed. 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 08/03/2018-she is on systemic steroids as well as scheduled and as needed nebulizers. We will initiate attempts at weaning likely tomorrow. She appears to be tolerating the ventilator without difficulty. (4) Hypothyroidism Qualifiers: Hypothyroidism type: unspecified Qualified Code(s): E03.9 - Hypothyroidism, unspecified Is this a current diagnosis for this admission?: Yes Plan: On Synthroid at home. TSH elevated. T3 and T4 normal. 08/01/2018-now that she has a nasogastric tube I will resume her levothyroxine. 08/02/2018-she is back on her regular dose of levothyroxine. 08/03/2018-TSH was elevated. Consider increase in levothyroxine from 75 mcg to 100 mcg. (5) Hypertension Is this a current diagnosis for this admission?: Yes Plan: Controlled. Currently on Cardizem drip. 08/01/2018-still with intermittent elevated blood pressures. I will reevaluate on the new medication regimen and adjust her medications if required. 08/02/2018-reasonable control on current regimen. 08/03/2018-currently on metoprolol, diltiazem and furosemide. Continue to monitor pressures and adjust medications accordingly. (6) Pneumonia Qualifiers: Pneumonia type: due to unspecified organism Is this a current diagnosis for this admission?: Yes Plan: CXR shows possible LL PNA. On IV antibiotics. Sputum culture ordered. 08/01/2018-awaiting sputum culture. We will continue antibiotics at this time. 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 Her white blood cell count is up to 13.0 today. 08/03/2018-the patient will continue on Rocephin for her pneumonia. Continue to monitor chest x-ray. Monitor white blood cell count. (7) Acute kidney injury Is this a current diagnosis for this admission?: Yes Plan: Her urine output improved with IV fluid bolus. Increase fluids to 125 cc/hr. Repeat BMP tomorrow. 08/01/2018-urine output is improved unfortunately the serum creatinine is higher today. We will continue gentle IV fluids and monitor her function. With the elevated creatinine and her blood culture growing a coagulase-negative staph, which is likely contaminant, we will discontinue the vancomycin. 08/02/2018-her serum creatinine is slightly better today. Unfortunately her BUN is higher. We may need to administer more free water through the nasogastric tube. She also may need resumption of IV fluids. 08/03/2018-serum creatinine again is improved. BUN is no better. Will recheck tomorrow. If no change consider increased free water. (8) Pulmonary hypertension Is this a current diagnosis for this admission?: Yes Plan: 08/02/2018-we did review the echocardiogram obtained during this hospitalization. She does have significant pulmonary hypertension with right ventricular systolic pressures between 59 and 64. 08/03/2018-no acute intervention at this time except good pulse and blood pressure control. (9) Tricuspid regurgitation Qualifiers: Cardiac valve disease etiology: nonrheumatic Qualified Code(s): I36.1 - Nonrheumatic tricuspid (valve) insufficiency Is this a current diagnosis for this admission?: Yes Plan: The echocardiogram revealed moderate to severe tricuspid regurgitation. 08/03/2018-no specific intervention other than current treatment plan. (10) Acute diastolic heart failure Is this a current diagnosis for this admission?: Yes Plan: 08/02/2018-the echocardiogram also revealed grade 1/4 diastolic dysfunction. Sys tolic function is intact with an ejection fraction of 75%. 08/03/2018-continue to monitor cardiac status and fluid balance. We will try to achieve negative fluid balance consistently. (11) Acute and chronic respiratory failure with hypoxia Is this a current diagnosis for this admission?: Yes Plan: 08/02/2018-due to increased work of breathing and worsening shortness of breath with hypoxia it was decided to electively intubate the patient. We will try and keep sedation to a minimum as we are looking for neurologic recovery. Chu mcbride is consulting as well. 08/03/2018-the patient was intubated yesterday. She appears to be resting comfortably on the ventilator. Will try to initiate weaning trials. - Time Time Spent with patient: 35 or more minutes Medications reviewed and adjusted accordingly: Yes
[2018-08-05 05:28] LABS: ALANINE AMINOTRANSFERASE 48 U/L (9-52); ALBUMIN 3.3 g/dL (3.5-5.0); ALKALINE PHOSPHATASE 82 U/L (38-126); ANION GAP 10 (5-19); ASPARTATE AMINO TRANSFERASE 29 U/L (14-36); BILIRUBIN,DIRECT 0.4 mg/dL (0.0-0.4); BILIRUBIN,TOTAL 0.6 mg/dL (0.2-1.3); BLOOD UREA NITROGEN 75 mg/dL (7-20); CALCIUM 8.7 mg/dL (8.4-10.2); CARBON DIOXIDE 23 mmol/L (22-30); CHLORIDE 113 mmol/L (98-107); GLUCOSE 197 mg/dL (75-110); POTASSIUM 3.4 mmol/L (3.6-5.0); SODIUM 146.1 mmol/L (137-145)
[2018-08-05 05:30] LABS: ABSOLUTE LYMPHOCYTES# (MANUAL) 0.5 10^3/uL (0.5-4.7); ABSOLUTE MONOCYTES # (MANUAL) 0.4 10^3/uL (0.1-1.4); BASOPHILS % (MANUAL) 0 % (0-2); EOSINOPHILS % (MANUAL) 0 % (0-6); LYMPHOCYTES % (MANUAL) 4 % (13-45); MONOCYTES % (MANUAL) 3 % (3-13); PLATELET COMMENT ADEQUATE; RBC MORPHOLOGY COMMENT NORMO-CYTIC/CHROMIC; SEGMENTED NEUTROPHILS % (MAN) 93 % (42-78); TOTAL CELLS COUNTED 100
--- NOTE | 2018-08-05 05:37 | PDOC PROGRESS REPORT ---
Subjective Progress Note for:: 08/04/18 Subjective:: The patient does withdraw to painful stimuli and is also exhibiting increased yawning. Reason For Visit: ACUTE ENCEPHALOPATHY, R/O MENINGITIS Physical Exam Vital Signs: Temp Pulse Resp BP Pulse Ox 97.9 F 75 18 125/52 L 97 08/04/18 12:00 08/04/18 12:00 08/04/18 12:00 08/04/18 12:00 08/04/18 12:00 Intake & Output 08/03/18 08/04/18 08/05/18 06:59 06:59 06:59 Intake Total 709 1628 428 Output Total 1305 1810 350 Balance -596 -182 78 Weight 66.1 kg 67.3 kg General appearance: PRESENT: no acute distress, other - Increased yawning Head exam: PRESENT: atraumatic, normocephalic Neck exam: ABSENT: carotid bruit, lymphadenopathy, thyromegaly Respiratory exam: PRESENT: clear to auscultation sridevi, symmetrical, unlabored. ABSENT: rales, rhonchi, tachypnea, wheezes Cardiovascular exam: PRESENT: RRR, +S1, +S2 GI/Abdominal exam: PRESENT: normal bowel sounds, soft. ABSENT: distended, t enderness Rectal exam: PRESENT: deferred Gentrourinary exam: PRESENT: indwelling catheter, other - Clear yellow urine Extremities exam: ABSENT: pedal edema Musculoskeletal exam: PRESENT: normal inspection - Upper arm slightly puffy Neurological exam: ABSENT: awake Psychiatric exam: ABSENT: agitated Focused psych exam: ABSENT: restlessness Skin exam: PRESENT: dry, warm. ABSENT: rash Results Laboratory Results: 08/04/18 05:15 08/04/18 05:15 08/04/18 08/04/18 08/04/18 05:15 05:15 05:15 WBC 6.8 RBC 3.45 L Hgb 11.3 L Hct 33.4 L MCV 97 MCH 32.8 MCHC 33.9 RDW 13.9 Plt Count 131 L Seg Neutrophils % 88.9 H Lymphocytes % 7.9 L Monocytes % 3.1 Eosinophils % 0.0 Basophils % 0.1 Absolute Neutrophils 6.1 Absolute Lymphocytes 0.5 Absolute Monocytes 0.2 Absolute Eosinophils 0.0 Absolute Basophils 0.0 Carbonic Acid 0.86 L HCO3/H2CO3 Ratio 21:1 ABG pH 7.43 ABG pCO2 28.5 L ABG pO2 106.9 H ABG HCO3 18.3 L ABG O2 Saturation 98.1 H ABG Base Excess -4.9 FiO2 35% Sodium 144.2 Potassium 3.3 L Chloride 112 H Carbon Dioxide 21 L Anion Gap 11 BUN 69 H Creatinine 2.47 H Est GFR ( Amer) 23 L Est GFR (Non-Af Amer) 19 L Glucose 171 H Calcium 8.6 Magnesium 2.1 Triglycerides 08/04/18 05:15 WBC RBC Hgb Hct MCV MCH MCHC RDW Plt Count Seg Neutrophils % Lymphocytes % Monocytes % Eosinophils % Basophils % Absolute Neutrophils Absolute Lymphocytes Absolute Monocytes Absolute Eosinophils Absolute Basophils Carbonic Acid HCO3/H2CO3 Ratio ABG pH ABG pCO2 ABG pO2 ABG HCO3 ABG O2 Saturation ABG Base Excess FiO2 Sodium Potassium Chloride Carbon Dioxide Anion Gap BUN Creatinine Est GFR ( Amer) Est GFR (Non-Af Amer) Glucose Calcium Magnesium Triglycerides 418 H 08/02/18 10:15 Tracheal Aspirate Gram Stain - Final 08/02/18 10:15 Tracheal Aspirate Sputum Culture - Final C.albicans/C.dubliniensis Normal Enedina Absent 08/02/18 11:50 Gannon Catheter Legionella Urinary Antigen - Final 07/29/18 22:30 Blood Blood Culture - Final NO GROWTH IN 5 DAYS 07/29/18 07/29/18 07/30/18 10:42 10:42 04:10 Creatine Kinase 176 H CK-MB (CK-2) Troponin I 0.021 NT-Pro-B Natriuret Pep 1490 H 07/31/18 07/31/18 03:05 03:05 Creatine Kinase 708 H CK-MB (CK-2) 14.10 H Troponin I NT-Pro-B Natriuret Pep Impressions: Head CT 07/29/18 10:41 IMPRESSION: MILD CHRONIC CHANGES OF ATROPHY AND MICROVASCULAR ISCHEMIA. NO ACUTE PROCESS. EVIDENCE OF ACUTE STROKE: NO. Guidance Fluoroscopy 07/29/18 12:37 IMPRESSION: Attempted Lumbar puncture under fluoroscopy. Recommend conscious sedation with anesthesia assistance. KUB X-Ray 08/01/18 10:30 IMPRESSION: NG tube is doubled back upon itself at the GE junction. Chest X-Ray 08/03/18 06:00 IMPRESSION: Partial clearing of the right upper lobe and left perihilar airspace disease compared to 08/02/2018 Assessment and Plan - Diagnosis (1) Acute encephalopathy Is this a current diagnosis for this admission?: Yes Plan: 07/29: CT head is unremarkable. TSH is elevated but level is not typically severely at a level that would cause myxedema coma. Check T3 and T4. With a recent history of headache and fever and acute confusion, will need to rule out meningitis. LP by radiology has been requested in the ER. Will start empirically with IV antibiotics. 07/30: Improving. She is going for an LP soon. Note she went into AFib. No focal or unilateral neuro deficits. Continue Cardizem drip. Will discuss anticoagulation with family. 07/31: Patient became agitated last night around 10 PM requiring Haldol and Ativan. She is lethargic and occasionally agitated but is she currently pro tecting her airway and is saturating well on nasal cannula. Her initial CSF analysis is not consistent with bacterial meningitis but may possibly be suggestive of viral meningitis. Will await further ID recommendations. 08/01/2018-the patient is calm this morning but still not responding to verbal stimulus. The work-up thus far for her encephalopathy is negative. I did speak with the infectious disease physician from [facility] and we are going to send spinal fluid for HSV PCR. We will continue the acyclovir. No other cause of an acute encephalopathy is apparent at this time. Continue current measures. 08/02/2018-reviewed the case with infectious diseases. There is still no identified source for the encephalopathy. Multiple possibilities exist. Spinal fluid is no growth so far. HSV-PCR has been added to the test list but this is a send out and results will not be back for several days. The family reported that the patient does have chickens, turkeys and kidney foul. Testing will be broadened to cover potential infections transmitted by poultry. We are going to order an MRI study today. The patient's breathing has worsened 08/03/2018-because the patient is still sedated the EEG that we were considering will not be performed at this time. She is still not responding to verbal stimulus however she does withdraw to painful stimuli. Tests are still pending. Specific cause of the encephalopathy is still undetermined. We will keep her on acyclovir until the final results of analysis are available. 08/04/2018-review of new laboratory studies reveals negative results for Legionella, mycoplasma and herpes simplex virus. The acyclovir will be discontinued. The exact etiology of her encephalopathy is still unclear. If we can get the patient extubated we will obtain an MRI. West Nile virus is still pending. There certainly could be other viral etiologies in play. Continue supportive care. (2) Atrial fibrillation Is this a current diagnosis for this admission?: Yes Plan: Currently on Cardizem drip. She will is on Cardizem p.o. at home but family briefly mentioned that this was for her hypertension. Will further discuss anticoagulation. Reviewed records from [place]. Patient apparently has history of paroxysmal A. fib. a few months back, she was told to discuss anticoagulation with her PCP. Discussed with family, who says that this has not been brought to their attention. Discussed benefits and risk of anticoagulation and they will discuss this further. 07/31: Family is still undecided about anticoagulation. CHADVASC score of 5, HAS-BLED score is high at 3. Note that HAS BLED is high at this time due to acute renal failure. Reassess and rediscuss with family when renal function has recovered. 08/01/2017-I am going to start diltiazem through the nasogastric tube as well as metoprolol. Would like to get her off of the diltiazem drip. If we can get her off the pump we can consider an MRI to further assess her brain. If the medications resolve the rapid ventricular response and if sinus rhythm is achieved then certainly the anticoagulation discussion and will be put on hold at this time. 08/02/2018-on her current regimen she has exhibited good pulse control (diltiazem and metoprolol). She is off of the diltiazem drip. Continue current medications. 08/03/2018-continues sinus rhythm on current regimen. Continue to monitor. 08/04/2018-currently in sinus rhythm with good pulse rate control. Continue current regimen. (3) COPD (chronic obstructive pulmonary disease) Is this a current diagnosis for this admission?: Yes Plan: Not in exacerbation. Breathing treatments as needed. 08/01/2018-she is currently on antibiotics for possible pneumonia. She has nebulized treatments available. Breathing is comfortable at this time. 08/02/2018-she remains on Rocephin for possible pneumonia. I have changed her nebulizer treatments to Xopenex and ipratropium every 6 hours scheduled and Xopenex every 3 hours if needed. 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 08/03/2018-she is on systemic steroids as well as scheduled and as needed nebulizers. We will initiate attempts at weaning likely tomorrow. She appears to be tolerating the ventilator without difficulty. 08/04/2018-continue steroids and nebulizer treatments. Continue Rocephin for pneumonia. Start weaning trials. (4) Hypothyroidism Qualifiers: Hypothyroidism type: unspecified Qualified Code(s): E03.9 - Hypothyroidism, unspecified Is this a current diagnosis for this admission?: Yes Plan: On Synthroid at home. TSH elevated. T3 and T4 normal. 08/01/2018-now that she has a nasogastric tube I will resume her levothyroxine. 08/02/2018-she is back on her regular dose of levothyroxine. 08/03/2018-TSH was elevated. Consider increase in levothyroxine from 75 mcg to 100 mcg. 08/04/2018-it is unlikely that this is due to hypothyroidism. Will increase the levothyroxine to 100 mcg. Her TSH was elevated. Recheck TSH in several months. (5) Hypertension Is this a current diagnosis for this admission?: Yes Plan: Controlled. Currently on Cardizem drip. 08/01/2018-still with intermittent elevated blood pressures. I will reevaluate on the new medication regimen and adjust her medications if required. 08/02/2018-reasonable control on current regimen. 08/03/2018-currently on metoprolol, diltiazem and furosemide. Continue to monitor pressures and adjust medications accordingly. 07/27/2018-blood pressures were slightly low this morning. We will continue to monitor. Will adjust medications based on blood pressure readings. (6) Pneumonia Qualifiers: Pneumonia type: due to unspecified organism Is this a current diagnosis for this admission?: Yes Plan: CXR shows possible LL PNA. On IV antibiotics. Sputum culture ordered. 08/01/2018-awaiting sputum culture. We will continue antibiotics at this time. 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 Her white blood cell count is up to 13.0 today. 08/03/2018-the patient will continue on Rocephin for her pneumonia. Continue to monitor chest x-ray. Monitor white blood cell count. 07/27/2018-x-ray shows improvement. Continue Rocephin. (7) Acute kidney injury Is this a current diagnosis for this admission?: Yes Plan: Her urine output improved with IV fluid bolus. Increase fluids to 125 cc/hr. Repeat BMP tomorrow. 08/01/2018-urine output is improved unfortunately the serum creatinine is higher today. We will continue gentle IV fluids and monitor her function. With the elevated creatinine and her blood culture growing a coagulase-negative staph, which is likely contaminant, we will discontinue the vancomycin. 08/02/2018-her serum creatinine is slightly better today. Unfortunately her BUN is higher. We may need to administer more free water through the nasogastric tube. She also may need resumption of IV fluids. 08/03/2018-serum creatinine again is improved. BUN is no better. Will recheck tomorrow. If no change consider increased free water. 07/27/2018-serum creatinine is about the same. The patient is slightly puffy. We will continue to adjust diuretics. Attempt a negative fluid balance but we will watch the renal function as well. (8) Pulmonary hypertension Is this a current diagnosis for this admission?: Yes Plan: 08/02/2018-we did review the echocardiogram obtained during this hospitalization. She does have significant pulmonary hypertension with right ventricular systolic pressures between 59 and 64. 08/03/2018-no acute intervention at this time except good pulse and blood pressure control. 08/04/2018-as per global treatment plan (9) Tricuspid regurgitation Qualifiers: Cardiac valve disease etiology: nonrheumatic Qualified Code(s): I36.1 - Nonrheumatic tricuspid (valve) insufficiency Is this a current diagnosis for this admission?: Yes Plan: The echocardiogram revealed moderate to severe tricuspid regurgitation. 08/03/2018-no specific intervention other than current treatment plan. 08/04/2018-as per global treatment plan (10) Acute diastolic heart failure Is this a current diagnosis for this admission?: Yes Plan: 08/02/2018-the echocardiogram also revealed grade 1/4 diastolic dysfunction. Sys tolic function is intact with an ejection fraction of 75%. 08/03/2018-continue to monitor cardiac status and fluid balance. We will try to achieve negative fluid balance consistently. 08/04/2018-we will try to maintain a negative fluid balance but will continue to monitor renal function and blood pressure (11) Acute and chronic respiratory failure with hypoxia Is this a current diagnosis for this admission?: Yes Plan: 08/02/2018-due to increased work of breathing and worsening shortness of breath with hypoxia it was decided to electively intubate the patient. We will try and keep sedation to a minimum as we are looking for neurologic recovery. Pulmonology is consulting as well. 08/03/2018-the patient was intubated yesterday. She appears to be resting comfortably on the ventilator. Will try to initiate weaning trials. 08/04/2018-we will attempt sedation vacations daily. Will attempt weaning trials daily. - Time Time Spent with patient: 35 or more minutes Medications reviewed and adjusted accordingly: Yes
[2018-08-05] MEDS: INSULIN LISPRO 100 UNIT/ML 3 ML VIAL SUBCUT SCH ×4 (05:50→23:30)
[2018-08-05] MEDS: LEVOTHYROXINE SODIUM 0.1 MG TABLET NG SCH (05:51)
[2018-08-05] MEDS: DILTIAZEM HCL 60 MG TABLET NG SCH ×4 (05:51→23:31)
[2018-08-05] MEDS: DEXAMETHASONE SOD PHOSPHATE INJ 4 MG/1 ML VIAL IV SCH ×3 (05:51→21:40)
--- NOTE | 2018-08-05 09:27 | RADIOLOGY REPORT (SQ) ---
EXAM DESCRIPTION: CHEST SINGLE VIEW COMPLETED DATE/TIME: 08/05/2018 6:16 am REASON FOR STUDY: resp failure COMPARISON: 08/03/2018. EXAM PARAMETERS: NUMBER OF VIEWS: One view. TECHNIQUE: Single frontal radiographic view of the chest acquired. RADIATION DOSE: NA LIMITATIONS: None. FINDINGS: LUNGS AND PLEURA: Improved aeration in the previously seen bilateral airspace disease. No pleural effusion or pneumothorax. MEDIASTINUM AND HILAR STRUCTURES: No masses. Contour normal. HEART AND VASCULAR STRUCTURES: Heart normal in size. Normal vasculature. BONES: No acute findings. HARDWARE: Stable endotracheal tube, nasogastric tube, and central line. OTHER: No other significant finding. IMPRESSION: CONTINUED IMPROVED AERATION. TECHNICAL DOCUMENTATION: JOB ID: [id number] [employer]- All Rights Reserved Reading location - IP/workstation name: [email or web address]
[2018-08-05] MEDS: ASPIRIN 81 MG TABLET, ENT COATED PO SCH (10:15)
[2018-08-05] MEDS: CEFTRIAXONE 2 GM/D5W RTU 2 GM/50 ML RTUPB IV SCH ×2 (11:10→21:39)
[2018-08-05] MEDS: METOPROLOL TARTRATE 50 MG TABLET NG SCH ×2 (11:10→21:39)
[2018-08-05] MEDS: FUROSEMIDE INJ/PF 20 MG/2 ML SDV IV SCH (11:10)
[2018-08-05] MEDS: PANTOPRAZOLE SODIUM 40 MG VIAL IV SCH (11:10)
[2018-08-05] MEDS: HEPARIN SOD (PORCINE) 5,000 UNIT/ML 1 ML SYRINGE SUBCUT SCH ×2 (11:11→21:40)
[2018-08-05] MEDS: PROPOFOL 1,000 MG/100 ML INFUS..BTL IV PRN ×2 (11:11→23:31)
--- NOTE | 2018-08-05 12:44 | RADIOLOGY REPORT (SQ) ---
EXAM DESCRIPTION: CT HEAD WITHOUT COMPLETED DATE/TIME: 08/05/2018 12:34 pm REASON FOR STUDY: unresponsive COMPARISON: 07/29/2018. TECHNIQUE: Axial images acquired through the brain without intravenous contrast. Images reviewed wi th bone, brain and subdural windows. Additional sagittal and coronal reconstructions were generated. Images stored on PACS. All CT scanners at this facility use dose modulation, iterative reconstruction, and/or weight based d osing when appropriate to reduce radiation dose to as low as reasonably achievable (ALARA). [facility]: Dose Right [facility]: CareDose [facility]: Dose Right [facility]: Teradose 4D [facility]: [employer] RADIATION DOSE: CT Rad equipment meets quality standard of care and radiation dose reduction techniq ues were employed. CTDIvol: 53.2 mGy. DLP: 1017 mGy-cm. mGy. LIMITATIONS: None. FINDINGS: VENTRICLES: Prominent. CEREBRUM: No masses. No hemorrhage. No midline shift. Areas of low density in the white matter mos t likely due to chronic micro-vascular ischemic change. No evidence for acute infarction. CEREBELLUM: No masses. No hemorrhage. No alteration of density. No evidence for acute infarction. EXTRAAXIAL SPACES: Mild age-related involutional change. No fluid collections. No masses. ORBITS AND GLOBE: No intra- or extraconal masses. Normal contour of globe without masses. CALVARIUM: No fracture. PARANASAL SINUSES: No fluid or mucosal thickening. SOFT TISSUES: No mass or hematoma. OTHER: No other significant finding. IMPRESSION: MILD CHRONIC CHANGES OF ATROPHY AND MICROVASCULAR ISCHEMIA. NO ACUTE PROCESS. EVIDENCE OF ACUTE STROKE: NO. TECHNICAL DOCUMENTATION: JOB ID: [id number] Quality ID # [id number]: Final reports with documentation of one or more dose reduction techniques (e.g., Au tomated exposure control, adjustment of the mA and/or kV according to patient size, use of iterative reconstruction technique) 2010 [employer]- All Rights Reserved Reading location - IP/workstation name: [email or web address]
--- NOTE | 2018-08-05 14:42 | PDOC PROGRESS REPORT ---
Subjective Progress Note for:: 08/05/18 Subjective:: The patient is in fact weaning at this time. She is quite comfortable. She is not tachypneic and there is no tachycardia. Reason For Visit: ACUTE ENCEPHALOPATHY, R/O MENINGITIS Physical Exam Vital Signs: Temp Pulse Resp BP Pulse Ox 99.1 F 86 11 L 169/85 H 97 08/05/18 10:01 08/05/18 08:28 08/05/18 10:01 08/05/18 10:01 08/05/18 11:12 Intake & Output 08/04/18 08/05/18 08/06/18 06:59 06:59 06:59 Intake Total 1628 709 69 Output Total 1810 2430 900 Balance -182 -1721 -831 Weight 67.3 kg 66 kg General appearance: PRESENT: no acute distress Eye exam: PRESENT: PERRLA Ear exam: PRESENT: normal external ear exam Mouth exam: PRESENT: other - Nasogastric tube and endotracheal tube in place Respiratory exam: PRESENT: symmetrical, wheezes - Occasional expiratory wheeze. ABSENT: rales, rhonchi, tachypnea Cardiovascular exam: PRESENT: RRR, +S1, +S2 GI/Abdominal exam: PRESENT: normal bowel sounds, soft. ABSENT: tenderness Rectal exam: PRESENT: deferred Gentrourinary exam: PRESENT: indwelling catheter Extremities exam: PRESENT: pedal edema, +1 edema Musculoskeletal exam: PRESENT: normal inspection Neurological exam: ABSENT: awake Psychiatric exam: ABSENT: agitated Focused psych exam: ABSENT: restlessness Skin exam: PRESENT: dry, warm. ABSENT: rash Results Laboratory Results: 08/05/18 05:04 08/05/18 05:04 08/04/18 08/05/18 08/05/18 20:05 05:04 05:04 WBC 12.0 H RBC 3.93 Hgb 12.7 Hct 37.9 MCV 96 MCH 32.3 MCHC 33.5 RDW 13.8 Plt Count 155 Seg Neutrophils % Not Reportable Lymphocytes % Not Reportable Monocytes % Not Reportable Eosinophils % Not Reportable Basophils % Not Reportable Absolute Neutrophils Not Reportable Absolute Lymphocytes Not Reportable Absolute Monocytes Not Reportable Absolute Eosinophils Not Reportable Absolute Basophils Not Reportable Carbonic Acid 0.93 L HCO3/H2CO3 Ratio 22:1 ABG pH 7.45 ABG pCO2 30.8 L ABG pO2 93.5 ABG HCO3 21.1 ABG O2 Saturation 97.5 ABG Base Excess -1.7 FiO2 40% Sodium Potassium 3.5 L Chloride Carbon Dioxide Anion Gap BUN Creatinine Est GFR ( Amer) Est GFR (Non-Af Amer) Glucose Calcium Magnesium Total Bilirubin AST ALT Alkaline Phosphatase Total Protein Albumin 08/05/18 05:04 WBC RBC Hgb Hct MCV MCH MCHC RDW Plt Count Seg Neutrophils % Lymphocytes % Monocytes % Eosinophils % Basophils % Absolute Neutrophils Absolute Lymphocytes Absolute Monocytes Absolute Eosinophils Absolute Basophils Carbonic Acid HCO3/H2CO3 Ratio ABG pH ABG pCO2 ABG pO2 ABG HCO3 ABG O2 Saturation ABG Base Excess FiO2 Sodium 146.1 H Potassium 3.4 L Chloride 113 H Carbon Dioxide 23 Anion Gap 10 BUN 75 H Creatinine 2.06 H Est GFR ( Amer) 28 L Est GFR (Non-Af Amer) 23 L Glucose 197 H Calcium 8.7 Magnesium 2.1 Total Bilirubin 0.6 AST 29 ALT 48 Alkaline Phosphatase 82 Total Protein 6.0 L Albumin 3.3 L 08/02/18 10:15 Tracheal Aspirate Gram Stain - Final 08/02/18 10:15 Tracheal Aspirate Sputum Culture - Final C.albicans/C.dubliniensis Normal Enedina Absent 07/29/18 07/29/18 07/30/18 10:42 10:42 04:10 Creatine Kinase 176 H CK-MB (CK-2) Troponin I 0.021 NT-Pro-B Natriuret Pep 1490 H 07/31/18 07/31/18 08/05/18 03:05 03:05 05:04 Creatine Kinase 708 H CK-MB (CK-2) 14.10 H Troponin I NT-Pro-B Natriuret Pep 3540 H Impressions: Guidance Fluoroscopy 07/29/18 12:37 IMPRESSION: Attempted Lumbar puncture under fluoroscopy. Recommend conscious sedation with anesthesia assistance. KUB X-Ray 08/01/18 10:30 IMPRESSION: NG tube is doubled back upon itself at the GE junction. Head CT 08/05/18 00:00 IMPRESSION: MILD CHRONIC CHANGES OF ATROPHY AND MICROVASCULAR ISCHEMIA. NO ACUTE PROCESS. EVIDENCE OF ACUTE STROKE: NO. Chest X-Ray 08/05/18 06:00 IMPRESSION: CONTINUED IMPROVED AERATION. Assessment and Plan - Diagnosis (1) Acute encephalopathy Is this a current diagnosis for this admission?: Yes Plan: 07/29: CT head is unremarkable. TSH is elevated but level is not typically severely at a level that would cause myxedema coma. Check T3 and T4. With a recent history of headache and fever and acute confusion, will need to rule out meningitis. LP by radiology has been requested in the ER. Will start empirically with IV antibiotics. 07/30: Improving. She is going for an LP soon. Note she went into AFib. No focal or unilateral neuro deficits. Continue Cardizem drip. Will discuss anticoagulation with family. 07/31: Patient became agitated last night around 10 PM requiring Haldol and Ativan. She is lethargic and occasionally agitated but is she currently protecting her airway and is saturating well on nasal cannula. Her initial CSF analysis is not consistent with bacterial meningitis but may possibly be suggestive of viral meningitis. Will await further ID recommendations. 08/01/2018-the patient is calm this morning but still not responding to verbal stimulus. The work-up thus far for her encephalopathy is negative. I did speak with the infectious disease physician from [facility] and we are going to send spinal fluid for HSV PCR. We will continue the acyclovir. No other cause of an acute encephalopathy is apparent at this time. Continue current measures. 08/02/2018-reviewed the case with infectious diseases. There is still no identified source for the encephalopathy. Multiple possibilities exist. Spinal fluid is no growth so far. HSV-PCR has been added to the test list but this is a send out and results will not be back for several days. The family reported that the patient does have chickens, turkeys and kidney foul. Testing will be broadened to cover potential infections transmitted by poultry. We are going to order an MRI study today. The patient's breathing has worsened 08/03/2018-because the patient is still sedated the EEG that we were considering will not be performed at this time. She is still not responding to verbal stimulus however she does withdraw to painful stimuli. Tests are still pending. Specific cause of the encephalopathy is still undetermined. We will keep her on acyclovir until the final results of analysis are available. 08/04/2018-review of new laboratory studies reveals negative results for Legionella, mycoplasma and herpes simplex virus. The acyclovir will be discontinued. The exact etiology of her encephalopathy is still unclear. If we can get the patient extubated we will obtain an MRI. West Nile virus is still pending. There certainly could be other viral etiologies in play. Continue supportive care. 08/05/2018-still unsure of the etiology. I did find out from the family that the patient was attending a pain management clinic for 10 years. Evidently she was on very large doses of OxyContin. Her sister reports that her pupils were pinpoint when she transported to the emergency department. Unfortunately toxicology screen was not performed on admission. CT scan obtained today showed appropriate changes for her age with regard to cerebral atrophy. No evidence of stroke or inflammatory change. We will attempt to minimize sedation and obtain an EEG on Tuesday to at least look for a baseline. The patient does not respond to verbal stimuli so asleep wake EEG is not obtainable. (2) Atrial fibrillation Qualifiers: Atrial fibrillation type: paroxysmal Qualified Code(s): I48.0 - Paroxysmal atrial fibrillation Is this a current diagnosis for this admission?: Yes Plan: Currently on Cardizem drip. She will is on Cardizem p.o. at home but family briefly mentioned that this was for her hypertension. Will further discuss anticoagulation. Reviewed records from [employer]. Patient apparently has history of paroxysmal A. fib. a few months back, she was told to discuss anticoagulation with her PCP. Discussed with family, who says that this has not been brought to their attention. Discussed benefits and risk of anticoagulation and they will discuss this further. 07/31: Family is still undecided about anticoagulation. CHADVASC score of 5, HAS-BLED score is high at 3. Note that HAS BLED is high at this time due to acute renal failure. Reassess and rediscuss with family when renal function has recovered. 08/01/2017-I am going to start diltiazem through the nasogastric tube as well as metoprolol. Would like to get her off of the diltiazem drip. If we can get her off the pump we can consider an MRI to further assess her brain. If the medications resolve the rapid ventricular response and if sinus rhythm is achieved then certainly the anticoagulation discussion and will be put on hold at this time. 08/02/2018-on her current regimen she has exhibited good pulse control (diltiazem and metoprolol). She is off of the diltiazem drip. Continue current me dications. 08/03/2018-continues sinus rhythm on current regimen. Continue to monitor. 08/04/2018-currently in sinus rhythm with good pulse rate control. Continue current regimen. 08/05/2018-she continues in sinus rhythm. She occasionally has tachycardia. She also occasionally has hypertension. I will increase the metoprolol to 75 mg twice daily. (3) COPD (chronic obstructive pulmonary disease) Is this a current diagnosis for this admission?: Yes Plan: Not in exacerbation. Breathing treatments as needed. 08/01/2018-she is currently on antibiotics for possible pneumonia. She has nebulized treatments available. Breathing is comfortable at this time. 08/02/2018-she remains on Rocephin for possible pneumonia. I have changed her nebulizer treatments to Xopenex and ipratropium every 6 hours scheduled and Xopenex every 3 hours if needed. 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 08/03/2018-she is on systemic steroids as well as scheduled and as needed nebulizers. We will initiate attempts at weaning likely tomorrow. She appears to be tolerating the ventilator without difficulty. 08/04/2018-continue steroids and nebulizer treatments. Continue Rocephin for pneumonia. Start weaning trials. 08/05/2018-continue current regimen. Pneumonia is improving on current antibiotic regimen. Weaning trials are in progress. (4) Hypothyroidism Qualifiers: Hypothyroidism type: unspecified Qualified Code(s): E03.9 - Hypothyroidism, unspecified Is this a current diagnosis for this admission?: Yes Plan: On Synthroid at home. TSH elevated. T3 and T4 normal. 08/01/2018-now that she has a nasogastric tube I will resume her levothyroxine. 08/02/2018-she is back on her regular dose of levothyroxine. 08/03/2018-TSH was elevated. Consider increase in levothyroxine from 75 mcg to 100 mcg. 08/04/2018-it is unlikely that this is due to hypothyroidism. Will increase the levothyroxine to 100 mcg. Her TSH was elevated. Recheck TSH in several months. 08/05/2018-levothyroxine is now 100 mcg daily. The effect will take place slowly. Reassess after discharge. (5) Hypertension Is this a current diagnosis for this admission?: Yes Plan: Controlled. Currently on Cardizem drip. 08/01/2018-still with intermittent elevated blood pressures. I will reevaluate on the new medication regimen and adjust her medications if required. 08/02/2018-reasonable control on current regimen. 08/03/2018-currently on metoprolol, diltiazem and furosemide. Continue to monitor pressures and adjust medications accordingly. 08/04/2018-blood pressures were slightly low this morning. We will continue to monitor. Will adjust medications based on blood pressure readings. 08/05/2018-due to variable pressures with occasional high readings I have increased her metoprolol to 75 mg twice daily. Continue to monitor blood pressure. (6) Pneumonia Qualifiers: Pneumonia type: due to unspecified organism Is this a current diagnosis for this admission?: Yes Plan: CXR shows possible LL PNA. On IV antibiotics. Sputum culture ordered. 08/01/2018-awaiting sputum culture. We will continue antibiotics at this time. 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 Her white blood cell count is up to 13.0 today. 08/03/2018-the patient will continue on Rocephin for her pneumonia. Continue to monitor chest x-ray. Monitor white blood cell count. 08/04/2018-x-ray shows improvement. Continue Rocephin. 08/05/2018-by x-ray and clinical exam her pneumonia is markedly improved. Complete antibiotic therapy as ordered. (7) Acute kidney injury Is this a current diagnosis for this admission?: Yes Plan: Her urine output improved with IV fluid bolus. Increase fluids to 125 cc/hr. Repeat BMP tomorrow. 08/01/2018-urine output is improved unfortunately the serum creatinine is higher today. We will continue gentle IV fluids and monitor her function. With the elevated creatinine and her blood culture growing a coagulase-negative staph, which is likely contaminant, we will discontinue the vancomycin. 08/02/2018-her serum creatinine is slightly better today. Unfortunately her BUN is higher. We may need to administer more free water through the nasogastric tube. She also may need resumption of IV fluids. 08/03/2018-serum creatinine again is improved. BUN is no better. Will recheck tomorrow. If no change consider increased free water. 08/04/2018-serum creatinine is about the same. The patient is slightly puffy. We will continue to adjust diuretics. Attempt a negative fluid balance but we will watch the renal function as well. 08/05/2018-the serum creatinine continues to improve. Today it is 2.04. Unfortunately her BUN is higher. I am monitoring her fluids and have added increased free fluid through tube flushes. (8) Pulmonary hypertension Is this a current diagnosis for this admission?: Yes Plan: 08/02/2018-we did review the echocardiogram obtained during this hospitalization. She does have significant pulmonary hypertension with right ventricular systolic pressures between 59 and 64. 08/03/2018-no acute intervention at this time except good pulse and blood pressure control. 08/04/2018-as per global treatment plan 08/05/2018-continue to control pulse and blood pressure as well as fluid status. No need for repeat echocardiogram at this time. (9) Tricuspid regurgitation Qualifiers: Cardiac valve disease etiology: nonrheumatic Qualified Code(s): I36.1 - Nonrheumatic tricuspid (valve) insufficiency Is this a current diagnosis for this admission?: Yes Plan: The echocardiogram revealed moderate to severe tricuspid regurgitation. 08/03/2018-no specific intervention other than current treatment plan. 08/04/2018-as per global treatment plan 08/05/2018-no dedicated treatment plan for tricuspid regurgitation. Continue good blood pressure and heart rate control. (10) Acute diastolic heart failure Is this a current diagnosis for this admission?: Yes Plan: 08/02/2018-the echocardiogram also revealed grade 1/4 diastolic dysfunction. Systolic function is intact with an ejection fraction of 75%. 08/03/2018-continue to monitor cardiac status and fluid balance. We will try to achieve negative fluid balance consistently. 08/04/2018-we will try to maintain a negative fluid balance but will continue to monitor renal function and blood pressure 08/05/2018-we are maintaining a negative fluid balance. I am adding free water through the PEG tube. (11) Acute and chronic respiratory failure with hypoxia Is this a current diagnosis for this admission?: Yes Plan: 08/02/2018-due to increased work of breathing and worsening shortness of breath with hypoxia it was decided to electively intubate the patient. We will try and keep sedation to a minimum as we are looking for neurologic recovery. Pulmonology is consulting as well. 08/03/2018-the patient was intubated yesterday. She appears to be resting comfortably on the ventilator. Will try to initiate weaning trials. 08/04/2018-we will attempt sedation vacations daily. Will attempt weaning trials daily. 08/05/2018-she is weaning quite comfortably today. Continue aggressive weaning with a goal of extubation. - Time Time Spent with patient: 35 or more minutes Medications reviewed and adjusted accordingly: Yes
[2018-08-05] MEDS: ASPIRIN 81 MG TABLET, CHEWABLE NG SCH (14:52)
--- NOTE | 2018-08-05 17:33 | PDOC CONSULTATION ---
Consultation Consult Date: 08/02/18 Attending physician:: FELICIA MONCADA Provider Consulted: STUART JAMES Consult reason:: Acute on chronic respiratory failure History of Present Illness Admission Date/PCP: 07/29/18 14:04 NORAH GUIDO MD History of Present Illness: ESTER NOVA is a 82 year old female, noted by her family to complain of headache and increasing lethargy was subsequently caused him to bring the patient to the emergency room time she was responsive with minimal nuchal rigidity and no evidence of fever. She has an extensive history of smoking COPD hypothyroidism Past Medical History Cardiac Medical History: Reports: Hyperlipidema, Hypertension Denies: Myocardial Infarction Pulmonary Medical History: Denies: Asthma Neurological Medical History: Denies: Seizures Endocrine Medical History: Reports: Hypothyroidism GI Medical History: Denies: Hepatitis, Hiatal Hernia Psychiatric Medical History: Reports: Depression Hematology: Denies: Anemia, Sickle Cell Disease Past Surgical History Past Surgical History: Reports: Hysterectomy, Orthopedic Surgery - back surgery, Vascular Surgery - leg stent Denies: Amputation, Mastectomy, Pacemaker Social History Information Source: [facility] Records Lives with: Family Smoking Status: Unknown if Ever Smoked Frequency of Alcohol Use: None Hx Recreational Drug Use: No Drugs: None Hx Prescription Drug Abuse: No Do you have pets?: No Have you had any respiratory illnesses as a child?: No Have you been exposed to any sick contacts recently?: No Have you had any recent respiratory illnesses?: No Have you travelled outside of [place] in the past 12 months?: No - Advance Directive Resuscitation Status: Full Code Family History Parental Family History Reviewed: No Children Family History Reviewed: No Sibling(s) Family History Reviewed.: No Medication/Allergy Home Medications: Celecoxib [Celebrex 200 mg Capsule] 200 mg PO DAILY 10/13/17 Cilostazol [Pletal 100 mg Tablet] 100 mg PO BIDACBS 10/13/17 Duloxetine HCl [Cymbalta] 60 mg PO DAILY 10/13/17 Levothyroxine Sodium [Synthroid 0.075 mg Tablet] 0.075 mg PO Q6AM 10/13/17 Metoprolol Succinate [Toprol XL 100 mg Tablet] 100 mg PO DAILY 10/13/17 Zolpidem Tartrate [Ambien] 5 mg PO QHS 10/13/17 Albuterol Sulfate [Albuterol Sulfate Hfa] 2 puff IH QIDP PRN 07/29/18 Aspirin [Ecotrin 81 mg EC Tablet] 81 mg PO DAILY 07/29/18 Cholestyramine (with Sugar) [Cholestyramine Packet] 4 gm PO DAILYP PRN MDD 8 GM 07/29/18 Diltiazem HCl [Dilt-Xr] 120 mg PO DAILY 07/29/18 Gabapentin [Neurontin 300 mg Capsule] 600 mg PO Q8 07/29/18 Allergies/Adverse Reactions: ibuprofen Allergy (Verified 10/13/17 17:15) Review of Systems ROS unobtainable: Due to endotracheal tube, Due to mental status Physical Exam Vital Signs: Temp Pulse Resp BP Pulse Ox 99.0 F 84 16 146/64 H 97 08/03/18 08:00 08/03/18 08:00 08/03/18 08:00 08/03/18 08:00 08/03/18 08:00 Intake & Output 08/02/18 08/03/18 08/04/18 06:59 06:59 06:59 Intake Total 1402 545 22 Output Total 1600 1305 100 Balance -198 -760 -78 Weight 68.2 kg 66.1 kg General appearance: PRESENT: no acute distress, disheveled. ABSENT: cooperative Head exam: PRESENT: atraumatic, normocephalic Eye exam: PRESENT: conjunctiva pale, nystagmus Mouth exam: PRESENT: dry mucosa, neck supple, tongue midline, other - ET tube Neck exam: ABSENT: carotid bruit, full ROM, JVD, lymphadenopathy, meningismus, tenderness, thyromegaly, tracheal deviation, tracheostomy, other Respiratory exam: PRESENT: decreased breath sounds, prolonged expiratory phas, rales, rhonchi. ABSENT: retraction, stridor, tachypnea Cardiovascular exam: PRESENT: RRR, +S1, +S2 Pulses: PRESENT: normal radial pulses GI/Abdominal exam: PRESENT: soft. ABSENT: mass, tenderness Gentrourinary exam: PRESENT: indwelling catheter Extremities exam: ABSENT: calf tenderness, clubbing, joint swelling, pedal edema Musculoskeletal exam: ABSENT: ambulatory, deformity, dislocation Neurological exam: ABSENT: awake Skin exam: PRESENT: dry, warm Results Laboratory Results: 08/03/18 04:15 08/03/18 04:15 06/26/19 06/27/19 06/27/19 11:05 04:15 04:15 WBC 7.4 RBC 3.58 L Hgb 11.6 L Hct 34.7 L MCV 97 MCH 32.5 MCHC 33.6 RDW 14.2 H Plt Count 155 Seg Neutrophils % 89.7 H Lymphocytes % 6.9 L Monocytes % 2.9 L Eosinophils % 0.1 Basophils % 0.4 Absolute Neutrophils 6.6 Absolute Lymphocytes 0.5 Absolute Monocytes 0.2 Absolute Eosinophils 0.0 Absolute Basophils 0.0 Carbonic Acid 1.11 0.80 L HCO3/H2CO3 Ratio 17:1 23:1 ABG pH 7.34 L 7.46 H ABG pCO2 36.8 26.6 L ABG pO2 79.4 L 83.2 ABG HCO3 19.4 L 18.6 L ABG O2 Saturation 95.2 96.9 ABG Base Excess -5.7 -3.6 FiO2 40% 35% Sodium Potassium Chloride Carbon Dioxide Anion Gap BUN Creatinine Est GFR ( Amer) Est GFR (Non-Af Amer) Glucose Calcium Magnesium Total Bilirubin AST ALT Alkaline Phosphatase Total Protein Albumin 08/03/18 04:15 WBC RBC Hgb Hct MCV MCH MCHC RDW Plt Count Seg Neutrophils % Lymphocytes % Monocytes % Eosinophils % Basophils % Absolute Neutrophils Absolute Lymphocytes Absolute Monocytes Absolute Eosinophils Absolute Basophils Carbonic Acid HCO3/H2CO3 Ratio ABG pH ABG pCO2 ABG pO2 ABG HCO3 ABG O2 Saturation ABG Base Excess FiO2 Sodium 145.3 H Potassium 3.5 L Chloride 115 H Carbon Dioxide 22 Anion Gap 8 BUN 64 H Creatinine 2.41 H Est GFR ( Amer) 23 L Est GFR (Non-Af Amer) 19 L Glucose 160 H Calcium 8.8 Magnesium 2.0 Total Bilirubin 0.4 AST 59 H ALT 71 H Alkaline Phosphatase 67 Total Protein 5.5 L Albumin 3.0 L 07/29/18 10:42 Blood Blood Culture - Final Staphylococcus Hominis 07/30/18 11:08 Cerebral Spinal Fluid - Tube 1 (Csf) Gram Stain - Final 07/30/18 11:08 Cerebral Spinal Fluid - Tube 1 (Csf) CSF Culture - Final NO GROWTH 3 DAYS 07/29/18 07/29/18 07/30/18 10:42 10:42 04:10 Creatine Kinase 176 H CK-MB (CK-2) Troponin I 0.021 NT-Pro-B Natriuret Pep 1490 H 07/31/18 07/31/18 03:05 03:05 Creatine Kinase 708 H CK-MB (CK-2) 14.10 H Troponin I NT-Pro-B Natriuret Pep Impressions: Head CT 07/29/18 10:41 IMPRESSION: MILD CHRONIC CHANGES OF ATROPHY AND MICROVASCULAR ISCHEMIA. NO ACUTE PROCESS. EVIDENCE OF ACUTE STROKE: NO. Guidance Fluoroscopy 07/29/18 12:37 IMPRESSION: Attempted Lumbar puncture under fluoroscopy. Recommend conscious sedation with anesthesia assistance. KUB X-Ray 08/01/18 10:30 IMPRESSION: NG tube is doubled back upon itself at the GE junction. Assessment & Plan - Diagnosis (1) Acute and chronic respiratory failure with hypoxia Is this a current diagnosis for this admission?: Yes Plan: Intubated sedate bronchodilator therapy (2) Acute kidney injury Is this a current diagnosis for this admission?: Yes Plan: Gentle diuresis (3) COPD (chronic obstructive pulmonary disease) Qualifiers: Emphysema type: centrilobular Is this a current diagnosis for this admission?: Yes Plan: laba+lama (4) Pulmonary hypertension Is this a current diagnosis for this admission?: Yes (5) Acute encephalopathy Is this a current diagnosis for this admission?: Yes Plan: Culture blood, urine, sputum, CSF - Time Total Critical Time (Minutes): 55
[2018-08-05] MEDS: AMINO AC/PROTEIN HYDR/WHEY PRO 11 GM/45 ML PKT NG SCH (18:46)
[2018-08-05] MEDS: POTASSIUM CHLORIDE 20 MEQ PACKET NG SCH (21:39)
[2018-08-06] MEDS: IPRATROPIUM BROMIDE 0.02% NEB 0.5 MG/2.5 ML AMPUL NEB SCH ×4 (02:19→20:09)
[2018-08-06] MEDS: LEVALBUTEROL HCL NEB 0.63 MG/3 ML AMPUL NEB SCH ×4 (02:19→20:09)
[2018-08-06 04:17] LABS: ARTERIAL BLOOD BASE EXCESS 0.1 mmol/L; ARTERIAL BLOOD H2CO3 0.91 mmol/L (1.05-1.35); ARTERIAL BLOOD HCO3 22.6 mmol/L (20-24); ARTERIAL BLOOD O2 SATURATION 97.1 % (94-98); ARTERIAL BLOOD PCO2 30.2 mmHg (35-45); ARTERIAL BLOOD PH 7.49 (7.35-7.45); ARTERIAL BLOOD PO2 84.3 mmHg (80-100); ARTERIAL BLOOD TOTAL CO2 23.5 mmol/L (21-25)
[2018-08-06 04:18] LABS: ARTERIAL BLOOD FIO2 40%
[2018-08-06 04:19] LABS: HEMATOCRIT 35.6 % (36.0-47.0); HEMOGLOBIN 11.9 g/dL (12.0-15.5); MEAN CORPUSCULAR HEMOGLOBIN 32.1 pg (27.0-33.4); MEAN CORPUSCULAR HGB CONC 33.4 g/dL (32.0-36.0); MEAN CORPUSCULAR VOLUME 96 fl (80-97); PLATELET COUNT 138 10^3/uL (150-450); RED BLOOD COUNT 3.71 10^6/uL (3.72-5.28); RED CELL DISTRIBUTION WIDTH 13.9 % (11.5-14.0); WHITE BLOOD COUNT 14.5 10^3/uL (4.0-10.5)
[2018-08-06 04:34] LABS: ABSOLUTE LYMPHOCYTES# (MANUAL) 0.9 10^3/uL (0.5-4.7); ABSOLUTE MONOCYTES # (MANUAL) 0.1 10^3/uL (0.1-1.4); ANION GAP 9 (5-19); BAND NEUTROPHILS % (MANUAL) 1 % (3-5); BASOPHILS % (MANUAL) 0 % (0-2); BLOOD UREA NITROGEN 82 mg/dL (7-20); CALCIUM 8.9 mg/dL (8.4-10.2); CARBON DIOXIDE 25 mmol/L (22-30); CHLORIDE 115 mmol/L (98-107); EOSINOPHILS % (MANUAL) 0 % (0-6); GLUCOSE 213 mg/dL (75-110); LYMPHOCYTES % (MANUAL) 6 % (13-45); METAMYELOCYTES % (MANUAL) 1 % (0); MONOCYTES % (MANUAL) 1 % (3-13); NUCLEATED RED BLOOD CELLS 3 /100 WBC (0); POTASSIUM 3.8 mmol/L (3.6-5.0); SEGMENTED NEUTROPHILS % (MAN) 91 % (42-78); SODIUM 149.2 mmol/L (137-145); TOTAL CELLS COUNTED 100
[2018-08-06 04:35] LABS: ANISOCYTOSIS SLIGHT; HYPOCHROMASIA 1+; PLATELET COMMENT DECREASED
[2018-08-06] MEDS: LEVOTHYROXINE SODIUM 0.1 MG TABLET NG SCH (05:50)
[2018-08-06] MEDS: DILTIAZEM HCL 60 MG TABLET NG SCH ×4 (05:50→23:52)
[2018-08-06] MEDS: INSULIN LISPRO 100 UNIT/ML 3 ML VIAL SUBCUT SCH ×4 (05:50→23:52)
[2018-08-06] MEDS ORDERED: DEXTROSE 5%-WATER 1000 ML 1,000 ML IV PRN (08:35)
--- NOTE | 2018-08-06 08:38 | RADIOLOGY REPORT (SQ) ---
EXAM DESCRIPTION: CHEST SINGLE VIEW COMPLETED DATE/TIME: 08/06/2018 6:42 am REASON FOR STUDY: resp failure COMPARISON: 08/05/2018 and 08/03/2018. EXAM PARAMETERS: NUMBER OF VIEWS: One view. TECHNIQUE: Single frontal radiographic view of the chest acquired. RADIATION DOSE: NA LIMITATIONS: None. FINDINGS: LUNGS AND PLEURA: Mild interstitial prominence. No lobar infiltrates, masses or pneumotho rax. No pleural effusion. MEDIASTINUM AND HILAR STRUCTURES: No masses. Contour normal. HEART AND VASCULAR STRUCTURES: Heart normal in size. Normal vasculature. BONES: No acute findings. HARDWARE: Stable endotracheal tube, nasogastric tube, and central line. OTHER: No other significant finding. IMPRESSION: PREVIOUSLY SEEN INFILTRATES HAVE RESOLVED. TECHNICAL DOCUMENTATION: JOB ID: [id number] [employer]- All Rights Reserved Reading location - IP/workstation name: [email or web address]
[2018-08-06] MEDS: PANTOPRAZOLE SODIUM 40 MG VIAL IV SCH (09:11)
[2018-08-06] MEDS: FUROSEMIDE INJ/PF 20 MG/2 ML SDV IV SCH (09:11)
[2018-08-06] MEDS: ASPIRIN 81 MG TABLET, CHEWABLE NG SCH (09:12)
[2018-08-06] MEDS: DEXAMETHASONE SOD PHOSPHATE INJ 4 MG/1 ML VIAL IV SCH ×2 (09:12→21:48)
[2018-08-06] MEDS: HEPARIN SOD (PORCINE) 5,000 UNIT/ML 1 ML SYRINGE SUBCUT SCH ×2 (09:12→21:47)
[2018-08-06] MEDS: POTASSIUM CHLORIDE 20 MEQ PACKET NG SCH ×2 (09:12→21:48)
[2018-08-06] MEDS: CEFTRIAXONE 2 GM/D5W RTU 2 GM/50 ML RTUPB IV SCH ×2 (09:12→21:47)
[2018-08-06] MEDS: METOPROLOL TARTRATE 50 MG TABLET NG SCH ×2 (09:12→21:47)
[2018-08-06] MEDS: AMINO AC/PROTEIN HYDR/WHEY PRO 11 GM/45 ML PKT NG SCH (18:52)
[2018-08-06 19:35] LABS: ANION GAP 11 (5-19); BLOOD UREA NITROGEN 81 mg/dL (7-20); CALCIUM 8.6 mg/dL (8.4-10.2); CARBON DIOXIDE 23 mmol/L (22-30); CHLORIDE 111 mmol/L (98-107); GLUCOSE 253 mg/dL (75-110); POTASSIUM 3.4 mmol/L (3.6-5.0); SODIUM 144.8 mmol/L (137-145)
[2018-08-07 01:11] LABS: ANION GAP 6 (5-19); BLOOD UREA NITROGEN 75 mg/dL (7-20); CALCIUM 7.4 mg/dL (8.4-10.2); CARBON DIOXIDE 21 mmol/L (22-30); CHLORIDE 119 mmol/L (98-107); GLUCOSE 180 mg/dL (75-110); POTASSIUM 3.4 mmol/L (3.6-5.0); SODIUM 145.8 mmol/L (137-145)
[2018-08-07] MEDS: IPRATROPIUM BROMIDE 0.02% NEB 0.5 MG/2.5 ML AMPUL NEB SCH ×4 (02:04→19:58)
[2018-08-07] MEDS: LEVALBUTEROL HCL NEB 0.63 MG/3 ML AMPUL NEB SCH ×4 (02:04→19:58)
[2018-08-07] MEDS: LEVOTHYROXINE SODIUM 0.1 MG TABLET NG SCH (05:14)
[2018-08-07] MEDS: DILTIAZEM HCL 60 MG TABLET NG SCH ×4 (05:14→23:26)
[2018-08-07] MEDS: INSULIN LISPRO 100 UNIT/ML 3 ML VIAL SUBCUT SCH ×4 (05:14→23:27)
[2018-08-07 05:21] LABS: HEMATOCRIT 30.5 % (36.0-47.0); HEMOGLOBIN 10.3 g/dL (12.0-15.5); MEAN CORPUSCULAR HEMOGLOBIN 32.6 pg (27.0-33.4); MEAN CORPUSCULAR HGB CONC 33.7 g/dL (32.0-36.0); MEAN CORPUSCULAR VOLUME 97 fl (80-97); PLATELET COUNT 121 10^3/uL (150-450); RED BLOOD COUNT 3.15 10^6/uL (3.72-5.28); WHITE BLOOD COUNT 18.7 10^3/uL (4.0-10.5)
[2018-08-07 05:26] LABS: ARTERIAL BLOOD BASE EXCESS -1.6 mmol/L; ARTERIAL BLOOD H2CO3 0.85 mmol/L (1.05-1.35); ARTERIAL BLOOD HCO3 20.7 mmol/L (20-24); ARTERIAL BLOOD O2 SATURATION 97.8 % (94-98); ARTERIAL BLOOD PCO2 28.3 mmHg (35-45); ARTERIAL BLOOD PH 7.48 (7.35-7.45); ARTERIAL BLOOD PO2 95.1 mmHg (80-100); ARTERIAL BLOOD TOTAL CO2 21.6 mmol/L (21-25)
[2018-08-07 05:27] LABS: ARTERIAL BLOOD FIO2 35%
[2018-08-07 05:38] LABS: ANION GAP 10 (5-19); BLOOD UREA NITROGEN 80 mg/dL (7-20); CALCIUM 8.5 mg/dL (8.4-10.2); CARBON DIOXIDE 21 mmol/L (22-30); CHLORIDE 115 mmol/L (98-107); GLUCOSE 221 mg/dL (75-110); POTASSIUM 3.6 mmol/L (3.6-5.0); SODIUM 146.2 mmol/L (137-145)
[2018-08-07 06:15] LABS: ABSOLUTE LYMPHOCYTES# (MANUAL) 1.5 10^3/uL (0.5-4.7); ABSOLUTE MONOCYTES # (MANUAL) 0.4 10^3/uL (0.1-1.4); BASOPHILS % (MANUAL) 0 % (0-2); EOSINOPHILS % (MANUAL) 0 % (0-6); LYMPHOCYTES % (MANUAL) 8 % (13-45); MONOCYTES % (MANUAL) 2 % (3-13); NUCLEATED RED BLOOD CELLS 4 /100 WBC (0); SEGMENTED NEUTROPHILS % (MAN) 90 % (42-78); TOTAL CELLS COUNTED 100
[2018-08-07 06:17] LABS: ANISOCYTOSIS SLIGHT; HYPERSEGMENTED NEUTROPHILS PRESENT; PLATELET CLUMPS PRESENT; PLATELET COMMENT DECREASED
[2018-08-07] MEDS ORDERED: 1/2 NORMAL SALINE 1,000 ML IV PRN (06:18)
--- NOTE | 2018-08-07 06:30 | PDOC PROGRESS REPORT ---
Subjective Progress Note for:: 08/06/18 Subjective:: She appears somewhat flushed this afternoon. She is exhibited slightly more spontaneous movement of her head however no eye-opening. Still no meaningful response to verbal stimulus. Even off of sedation there is no change. Reason For Visit: ACUTE ENCEPHALOPATHY, R/O MENINGITIS Physical Exam Vital Signs: Temp Pulse Resp BP Pulse Ox 100.4 F 86 20 149/62 H 96 08/06/18 18:00 08/06/18 13:30 08/06/18 18:00 08/06/18 17:37 08/06/18 18:00 Intake & Output 08/05/18 08/06/18 08/07/18 06:59 06:59 06:59 Intake Total 709 1068 5 Output Total 2430 2360 1100 Balance -7021 -3732 -109 Weight 66 kg 63.5 kg General appearance: PRESENT: no acute distress, other - Frail-appearing 82-year-old female Head exam: PRESENT: atraumatic, normocephalic Mouth exam: PRESENT: other - Nasogastric and endotracheal tubes in place. Respiratory exam: PRESENT: clear to auscultation sridevi, symmetrical, unlabored. ABSENT: rales, rhonchi, tachypnea, wheezes Cardiovascular exam: PRESENT: RRR, +S1, +S2, systolic murmur GI/Abdominal exam: PRESENT: soft. ABSENT: distended, tenderness Rectal exam: PRESENT: deferred Gentrourinary exam: PRESENT: indwelling catheter Extremities exam: PRESENT: other - No pedal edema. Edema in upper extremities is improved Neurological exam: ABSENT: awake Psychiatric exam: ABSENT: agitated Focused psych exam: ABSENT: restlessness Skin exam: PRESENT: other - Slight facial flushing Results Laboratory Results: 08/06/18 04:08 08/06/18 04:08 08/06/18 08/06/18 08/06/18 04:08 04:08 04:08 WBC 14.5 H RBC 3.71 L Hgb 11.9 L Hct 35.6 L MCV 96 MCH 32.1 MCHC 33.4 RDW 13.9 Plt Count 138 L Seg Neutrophils % Not Reportable Lymphocytes % Not Reportable Monocytes % Not Reportable Eosinophils % Not Reportable Basophils % Not Reportable Absolute Neutrophils Not Reportable Absolute Lymphocytes Not Reportable Absolute Monocytes Not Reportable Absolute Eosinophils Not Reportable Absolute Basophils Not Reportable Carbonic Acid 0.91 L HCO3/H2CO3 Ratio 24:1 ABG pH 7.49 H ABG pCO2 30.2 L ABG pO2 84.3 ABG HCO3 22.6 ABG O2 Saturation 97.1 ABG Base Excess 0.1 FiO2 40% Sodium 149.2 H Potassium 3.8 Chloride 115 H Carbon Dioxide 25 Anion Gap 9 BUN 82 H Creatinine 1.75 H Est GFR ( Amer) 34 L Est GFR (Non-Af Amer) 28 L Glucose 213 H Calcium 8.9 Magnesium 2.2 07/29/18 07/29/18 07/30/18 10:42 10:42 04:10 Creatine Kinase 176 H CK-MB (CK-2) Troponin I 0.021 NT-Pro-B Natriuret Pep 1490 H 07/31/18 07/31/18 08/05/18 03:05 03:05 05:04 Creatine Kinase 708 H CK-MB (CK-2) 14.10 H Troponin I NT-Pro-B Natriuret Pep 3540 H Impressions: Guidance Fluoroscopy 07/29/18 12:37 IMPRESSION: Attempted Lumbar puncture under fluoroscopy. Recommend conscious sedation with anesthesia assistance. KUB X-Ray 08/01/18 10:30 IMPRESSION: NG tube is doubled back upon itself at the GE junction. Head CT 08/05/18 00:00 IMPRESSION: MILD CHRONIC CHANGES OF ATROPHY AND MICROVASCULAR ISCHEMIA. NO ACUTE PROCESS. EVIDENCE OF ACUTE STROKE: NO. Chest X-Ray 08/06/18 06:00 IMPRESSION: PREVIOUSLY SEEN INFILTRATES HAVE RESOLVED. Assessment and Plan - Diagnosis (1) Acute encephalopathy Is this a current diagnosis for this admission?: Yes Plan: 07/29: CT head is unremarkable. TSH is elevated but level is not typically severely at a level that would cause myxedema coma. Check T3 and T4. With a recent history of headache and fever and acute confusion, will need to rule out meningitis. LP by radiology has been requested in the ER. Will start empirically with IV antibiotics. 07/30: Improving. She is going for an LP soon. Note she went into AFib. No focal or unilateral neuro deficits. Continue Cardizem drip. Will discuss anticoagulation with family. 07/31: Patient became agitated last night around 10 PM requiring Haldol and Ativan. She is lethargic and occasionally agitated but is she currently protecting her airway and is saturating well on nasal cannula. Her initial CSF analysis is not consistent with bacterial meningitis but may possibly be suggestive of viral meningitis. Will await further ID recommendations. 08/01/2018-the patient is calm this morning but still not responding to verbal stimulus. The work-up thus far for her encephalopathy is negative. I did speak with the infectious disease physician from [facility] and we are going to send spinal f luid for HSV PCR. We will continue the acyclovir. No other cause of an acute encephalopathy is apparent at this time. Continue current measures. 08/02/2018-reviewed the case with infectious diseases. There is still no identified source for the encephalopathy. Multiple possibilities exist. Spinal fluid is no growth so far. HSV-PCR has been added to the test list but this is a send out and results will not be back for several days. The family reported that the patient does have chickens, turkeys and kidney foul. Testing will be broadened to cover potential infections transmitted by poultry. We are going to order an MRI study today. The patient's breathing has worsened 08/03/2018-because the patient is still sedated the EEG that we were considering will not be performed at this time. She is still not responding to verbal stimulus however she does withdraw to painful stimuli. Tests are still pending. Specific cause of the encephalopathy is still undetermined. We will keep her on acyclovir until the final results of analysis are available. 08/04/2018-review of new laboratory studies reveals negative results for Legionella, mycoplasma and herpes simplex virus. The acyclovir will be discontinued. The exact etiology of her encephalopathy is still unclear. If we can get the patient extubated we will obtain an MRI. West Nile virus is still pending. There certainly could be other viral etiologies in play. Continue supportive care. 08/05/2018-still unsure of the etiology. I did find out from the family that the patient was attending a pain management clinic for 10 years. Evidently she was on very large doses of OxyContin. Her sister reports that her pupils were pinpoint when she transported to the emergency department. Unfortunately toxicology screen was not performed on admission. CT scan obtained today showed appropriate changes for her age with regard to cerebral atrophy. No evidence of stroke or inflammatory change. We will attempt to minimize sedation and obtain an EEG on Tuesday to at least look for a baseline. The patient does not respond to verbal stimuli so asleep wake EEG is not obtainable. 08/06/2018-still no appreciable change. The goal is to have her on as little medication as possible (none if possible) for an EEG tomorrow morning. If this shows diffuse abnormality then she could have suffered anoxic brain injury. We are not sure of the specific etiology. (2) Atrial fibrillation Qualifiers: Atrial fibrillation type: paroxysmal Qualified Code(s): I48.0 - Paroxysmal atrial fibrillation Is this a current diagnosis for this admission?: Yes Plan: Currently on Cardizem drip. She will is on Cardizem p.o. at home but family briefly mentioned that this was for her hypertension. Will further discuss anticoagulation. Reviewed records from [place]. Patient apparently has history of paroxysmal A. fib . a few months back, she was told to discuss anticoagulation with her PCP. Discussed with family, who says that this has not been brought to their attention. Discussed benefits and risk of anticoagulation and they will discuss this further. 07/31: Family is still undecided about anticoagulation. CHADVASC score of 5, HAS-BLED score is high at 3. Note that HAS BLED is high at this time due to acute renal failure. Reassess and rediscuss with family when renal function has recovered. 08/01/2017-I am going to start diltiazem through the nasogastric tube as well as metoprolol. Would like to get her off of the diltiazem drip. If we can get her off the pump we can consider an MRI to further assess her brain. If the medications resolve the rapid ventricular response and if sinus rhythm is a chieved then certainly the anticoagulation discussion and will be put on hold at this time. 08/02/2018-on her current regimen she has exhibited good pulse control (diltiazem and metoprolol). She is off of the diltiazem drip. Continue current medications. 08/03/2018-continues sinus rhythm on current regimen. Continue to monitor. 08/04/2018-currently in sinus rhythm with good pulse rate control. Continue current regimen. 08/05/2018-she continues in sinus rhythm. She occasionally has tachycardia. She also occasionally has hypertension. I will increase the metoprolol to 75 mg twice daily. 08/06/2018-there is another self-limited episode of tachycardia today. I am going to increase her metoprolol. Her blood pressure has been slightly elevated as well. (3) COPD (chronic obstructive pulmonary disease) Qualifiers: Emphysema type: centrilobular Is this a current diagnosis for this admission?: Yes Plan: Not in exacerbation. Breathing treatments as needed. 08/01/2018-she is currently on antibiotics for possible pneumonia. She has nebulized treatments available. Breathing is comfortable at this time. 08/02/2018-she remains on Rocephin for possible pneumonia. I have changed her nebulizer treatments to Xopenex and ipratropium every 6 hours scheduled and Xopenex every 3 hours if needed. 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 08/03/2018-she is on systemic steroids as well as scheduled and as needed nebulizers. We will initiate attempts at weaning likely tomorrow. She appears to be tolerating the ventilator without difficulty. 08/04/2018-continue steroids and nebulizer treatments. Continue Rocephin for pneumonia. Start weaning trials. 08/05/2018-continue current regimen. Pneumonia is improving on current antibiotic regimen. Weaning trials are in progress. 08/06/2018-continue steroids and nebulizer treatments. She has 1 more day of antibiotic therapy but the pneumonia is significantly improved. (4) Hypothyroidism Qualifiers: Hypothyroidism type: unspecified Qualified Code(s): E03.9 - Hypothyroidism, unspecified Is this a current diagnosis for this admission?: Yes Plan: On Synthroid at home. TSH elevated. T3 and T4 normal. 08/01/2018-now that she has a nasogastric tube I will resume her levothyroxine. 08/02/2018-she is back on her regular dose of levothyroxine. 08/03/2018-TSH was elevated. Consider increase in levothyroxine from 75 mcg to 100 mcg. 08/04/2018-it is unlikely that this is due to hypothyroidism. Will increase the levothyroxine to 100 mcg. Her TSH was elevated. Recheck TSH in several months. 08/05/2018-levothyroxine is now 100 mcg daily. The effect will take place slowly. Reassess after discharge. 08/06/2018-monitor on increased levothyroxine. This can cause accelerated heart rate. (5) Hypertension Is this a current diagnosis for this admission?: Yes Plan: Controlled. Currently on Cardizem drip. 08/01/2018-still with intermittent elevated blood pressures. I will reevaluate on the new medication regimen and adjust her medications if required. 08/02/2018-reasonable control on current regimen. 08/03/2018-currently on metoprolol, diltiazem and furosemide. Continue to monitor pressures and adjust medications accordingly. 08/04/2018-blood pressures were slightly low this morning. We will continue to monitor. Will adjust medications based on blood pressure readings. 08/05/2018-due to variable pressures with occasional high readings I have increased her metoprolol to 75 mg twice daily. Continue to monitor blood pressure. 08/06/2018-still with occasional increased blood pressure. Diuresis did improve edema however her BUN is higher. Her blood pressure is up slightly. Will increase the metoprolol. She may need to resume diuresis. (6) Pneumonia Qualifiers: Pneumonia type: due to unspecified organism Is this a current diagnosis for this admission?: Yes Plan: CXR shows possible LL PNA. On IV antibiotics. Sputum culture ordered. 08/01/2018-awaiting sputum culture. We will continue antibiotics at this time. 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 Her white blood cell count is up to 13.0 today. 08/03/2018-the patient will continue on Rocephin for her pneumonia. Continue to monitor chest x-ray. Monitor white blood cell count. 08/04/2018-x-ray shows improvement. Continue Rocephin. 08/05/2018-by x-ray and clinical exam her pneumonia is markedly improved. Complete antibiotic therapy as ordered. 08/06/2018-improved. Will administer antibiotics until the scheduled stop date. (7) Acute kidney injury Is this a current diagnosis for this admission?: Yes Plan: Her urine output improved with IV fluid bolus. Increase fluids to 125 cc/hr. Re peat BMP tomorrow. 08/01/2018-urine output is improved unfortunately the serum creatinine is higher today. We will continue gentle IV fluids and monitor her function. With the elevated creatinine and her blood culture growing a coagulase-negative staph, which is likely contaminant, we will discontinue the vancomycin. 08/02/2018-her serum creatinine is slightly better today. Unfortunately her BUN is higher. We may need to administer more free water through the nasogastric tube. She also may need resumption of IV fluids. 08/03/2018-serum creatinine again is improved. BUN is no better. Will recheck tomorrow. If no change consider increased free water. 08/04/2018-serum creatinine is about the same. The patient is slightly puffy. We will continue to adjust diuretics. Attempt a negative fluid balance but we will watch the renal function as well. 08/05/2018-the serum creatinine continues to improve. Today it is 2.04. Unfortunately her BUN is higher. I am monitoring her fluids and have added increased free fluid through tube flushes. 08/06/2018-the BUN again is up slightly. The serum creatinine is currently plateaued. I will administer fluid (200 mL/h challenge x1 L) and reevaluate. (8) Pulmonary hypertension Is this a current diagnosis for this admission?: Yes Plan: 08/02/2018-we did review the echocardiogram obtained during this hospitalization. She does have significant pulmonary hypertension with right ventricular systolic pressures between 59 and 64. 08/03/2018-no acute intervention at this time except good pulse and blood pressure control. 08/04/2018-as per global treatment plan 08/05/2018-continue to control pulse and blood pressure as well as fluid status. No need for repeat echocardiogram at this time. 08/06/2018-no changes to current regimen. (9) Tricuspid regurgitation Qualifiers: Cardiac valve disease etiology: nonrheumatic Qualified Code(s): I36.1 - Nonrheumatic tricuspid (valve) insufficiency Is this a current diagnosis for this admission?: Yes Plan: The echocardiogram revealed moderate to severe tricuspid regurgitation. 08/03/2018-no specific intervention other than current treatment plan. 08/04/2018-as per global treatment plan 08/05/2018-no dedicated treatment plan for tricuspid regurgitation. Continue good blood pressure and heart rate control. 08/06/2018-as noted above adjustments are being made with fluid and diuretics as well as antihypertensives. (10) Acute diastolic heart failure Is this a current diagnosis for this admission?: Yes Plan: 08/02/2018-the echocardiogram also revealed grade 1/4 diastolic dysfunction. Systolic function is intact with an ejection fraction of 75%. 08/03/2018-continue to monitor cardiac status and fluid balance. We will try to achieve negative fluid balance consistently. 08/04/2018-we will try to maintain a negative fluid balance but will continue to monitor renal function and blood pressure 08/05/2018-we are maintaining a negative fluid balance. I am adding free water through the PEG tube. 08/06/2018-she does seem to be dry again. Fluid challenge as noted above. (11) Acute and chronic respiratory failure with hypoxia Is this a current diagnosis for this admission?: Yes Plan: 08/02/2018-due to increased work of breathing and worsening shortness of breath with hypoxia it was decided to electively intubate the patient. We will try and keep sedation to a minimum as we are looking for neurologic recovery. Pulmonology is consulting as well. 08/03/2018-the patient was intubated yesterday. She appears to be resting comfortably on the ventilator. Will try to initiate weaning trials. 08/04/2018-we will attempt sedation vacations daily. Will attempt weaning trials daily. 08/05/2018-she is weaning quite comfortably today. Continue aggressive weaning with a goal of extubation. 08/06/2018-continue current regimen. (12) Hypernatremia Is this a current diagnosis for this admission?: Yes Plan: 08/06/2018-sodium level is up. Will administer more half-normal saline as noted above. Continue to monitor electrolytes. - Time Time Spent with patient: 25-34 minutes Medications reviewed and adjusted accordingly: Yes
--- NOTE | 2018-08-07 09:23 | RADIOLOGY REPORT (SQ) ---
EXAM DESCRIPTION: CHEST SINGLE VIEW COMPLETED DATE/TIME: 08/07/2018 6:35 am REASON FOR STUDY: resp failure COMPARISON: CT chest 10/15/2017 Chest films 07/30/2018, 08/03/2018, 08/05/2018, 08/06/2018 EXAM PARAMETERS: NUMBER OF VIEWS: One view. TECHNIQUE: Single frontal radiographic view of the chest acquired. RADIATION DOSE: NA LIMITATIONS: None. FINDINGS: LUNGS AND PLEURA: No opacities, masses or pneumothorax. No pleural effusion. MEDIASTINUM AND HILAR STRUCTURES: No masses. Contour normal. HEART AND VASCULAR STRUCTURES: Heart normal in size. Normal vasculature. BONES: Multiple old healed left lateral and right lateral rib fractures HARDWARE: Endotracheal tube tip 5 cm above the juhi. Left jugular central line tip superior vena c chastity. Nasogastric tube tip and side port in the stomach. OTHER: No other significant finding. IMPRESSION: Tubes and lines in good positioning. No acute infiltrates. Old bilateral rib fractures TECHNICAL DOCUMENTATION: JOB ID: [id number] [employer]- All Rights Reserved Reading location - IP/workstation name: [email or web address]
--- NOTE | 2018-08-07 09:33 | PDOC PROGRESS REPORT ---
Subjective Progress Note for:: 08/07/18 Subjective:: The patient is opening her eyes. She is not following commands. Increased spontaneous movement. She did have a low-grade temperature earlier. White blood cell count is elevated. Reason For Visit: ACUTE ENCEPHALOPATHY, R/O MENINGITIS Physical Exam Vital Signs: Temp Pulse Resp BP Pulse Ox 97.9 F 74 16 165/72 H 98 08/07/18 06:07 08/07/18 02:04 08/07/18 06:07 08/07/18 06:07 08/07/18 06:07 Intake & Output 08/05/18 08/06/18 08/07/18 06:59 06:59 06:59 Intake Total 709 1068 1574 Output Total 2430 5980 2125 Balance -8455 -5244 -256 Weight 66 kg 63.5 kg 64.3 kg General appearance: PRESENT: no acute distress, well-developed - Well-developed but frail appearing 82-year-old female resting in bed Head exam: PRESENT: normocephalic Eye exam: PRESENT: PERRLA, other - Pupils actually seems slightly larger today. They are equal and reactive to light.. ABSENT: scleral icterus Ear exam: PRESENT: normal external ear exam Mouth exam: PRESENT: other - Endotracheal tube and nasogastric tube in place Neck exam: ABSENT: lymphadenopathy, thyromegaly Respiratory exam: PRESENT: clear to auscultation sridvei - Anteriorly, symmetrical. ABSENT: accessory muscle use, rales, rhonchi, tachypnea, wheezes Cardiovascular exam: PRESENT: RRR, +S1, +S2, systolic murmur - 2/6 Pulses: PRESENT: normal radial pulses, normal dorsalis pedis pul GI/Abdominal exam: PRESENT: hypoactive bowel sounds, soft. ABSENT: distended, tenderness Rectal exam: PRESENT: deferred Gentrourinary exam: PRESENT: indwelling catheter Extremities exam: ABSENT: joint swelling, pedal edema Musculoskeletal exam: PRESENT: normal inspection Neurological exam: PRESENT: alert - Appears to be alert, awake, other - Does not respond to verbal commands Psychiatric exam: ABSENT: agitated, anxious Focused psych exam: ABSENT: restlessness Skin exam: PRESENT: dry, warm. ABSENT: rash Results Laboratory Results: 08/07/18 04:58 08/07/18 04:58 08/06/18 08/07/18 08/07/18 18:55 00:19 04:58 WBC RBC Hgb Hct MCV MCH MCHC RDW Plt Count Seg Neutrophils % Lymphocytes % Monocytes % Eosinophils % Basophils % Absolute Neutrophils Absolute Lymphocytes Absolute Monocytes Absolute Eosinophils Absolute Basophils Carbonic Acid HCO3/H2CO3 Ratio ABG pH ABG pCO2 ABG pO2 ABG HCO3 ABG O2 Saturation ABG Base Excess FiO2 Sodium 144.8 145.8 H 146.2 H Potassium 3.4 L 3.4 L 3.6 Chloride 111 H 119 H 115 H Carbon Dioxide 23 21 L 21 L Anion Gap 11 6 10 BUN 81 H 75 H 80 H Creatinine 1.84 H 1.52 H 1.51 H Est GFR ( Amer) 32 L 40 L 40 L Est GFR (Non-Af Amer) 26 L 33 L 33 L Glucose 253 H 180 H 221 H Calcium 8.6 7.4 L 8.5 Magnesium 2.2 08/07/18 08/07/18 04:58 05:02 WBC 18.7 H RBC 3.15 L Hgb 10.3 L Hct 30.5 L MCV 97 MCH 32.6 MCHC 33.7 RDW 14.0 Plt Count 121 L Seg Neutrophils % Not Reportable Lymphocytes % Not Reportable Monocytes % Not Reportable Eosinophils % Not Reportable Basophils % Not Reportable Absolute Neutrophils Not Reportable Absolute Lymphocytes Not Reportable Absolute Monocytes Not Reportable Absolute Eosinophils Not Reportable Absolute Basophils Not Reportable Carbonic Acid 0.85 L HCO3/H2CO3 Ratio 24:1 ABG pH 7.48 H ABG pCO2 28.3 L ABG pO2 95.1 ABG HCO3 20.7 ABG O2 Saturation 97.8 ABG Base Excess -1.6 FiO2 35% Sodium Potassium Chloride Carbon Dioxide Anion Gap BUN Creatinine Est GFR ( Amer) Est GFR (Non-Af Amer) Glucose Calcium Magnesium 07/29/18 07/29/18 07/30/18 10:42 10:42 04:10 Creatine Kinase 176 H CK-MB (CK-2) Troponin I 0.021 NT-Pro-B Natriuret Pep 1490 H 07/31/18 07/31/18 08/05/18 03:05 03:05 05:04 Creatine Kinase 708 H CK-MB (CK-2) 14.10 H Troponin I NT-Pro-B Natriuret Pep 3540 H Impressions: Guidance Fluoroscopy 07/29/18 12:37 IMPRESSION: Attempted Lumbar puncture under fluoroscopy. Recommend conscious sedation with anesthesia assistance. KUB X-Ray 08/01/18 10:30 IMPRESSION: NG tube is doubled back upon itself at the GE junction. Head CT 08/05/18 00:00 IMPRESSION: MILD CHRONIC CHANGES OF ATROPHY AND MICROVASCULAR ISCHEMIA. NO ACUTE PROCESS. EVIDENCE OF ACUTE STROKE: NO. Assessment and Plan - Diagnosis (1) Acute encephalopathy Is this a current diagnosis for this admission?: Yes Plan: 07/29: CT head is unremarkable. TSH is elevated but level is not typically severely at a level that would cause myxedema coma. Check T3 and T4. With a recent history of headache and fever and acute confusion, will need to rule out meningitis. LP by radiology has been requested in the ER. Will start empirically with IV antibiotics. 07/30: Improving. She is going for an LP soon. Note she went into AFib. No focal or unilateral neuro deficits. Continue Cardizem drip. Will discuss anticoagula tion with family. 07/31: Patient became agitated last night around 10 PM requiring Haldol and Ativan. She is lethargic and occasionally agitated but is she currently protecting her airway and is saturating well on nasal cannula. Her initial CSF analysis is not consistent with bacterial meningitis but may possibly be suggestive of viral meningitis. Will await further ID recommendations. 08/01/2018-the patient is calm this morning but still not responding to verbal stimulus. The work-up thus far for her encephalopathy is negative. I did speak with the infectious disease physician from [facility] and we are going to send spinal fluid for HSV PCR. We will continue the acyclovir. No other cause of an acute encephalopathy is apparent at this time. Continue current measures. 08/02/2018-reviewed the case with infectious diseases. There is still no identified source for the encephalopathy. Multiple possibilities exist. Spinal fluid is no growth so far. HSV-PCR has been added to the test list but this is a send out and results will not be back for several days. The family reported that the patient does have chickens, turkeys and kidney foul. Testing will be broadened to cover potential infections transmitted by poultry. We are going to order an MRI study today. The patient's breathing has worsened 08/03/2018-because the patient is still sedated the EEG that we were considering will not be performed at this time. She is still not responding to verbal stimulus however she does withdraw to painful stimuli. Tests are still pending. Specific cause of the encephalopathy is still undetermined. We will keep her on acyclovir until the final results of analysis are available. 08/04/2018-review of new laboratory studies reveals negative results for Legionella, mycoplasma and herpes simplex virus. The acyclovir will be discontinued. The exact etiology of her encephalopathy is still unclear. If we can get the patient extubated we will obtain an MRI. West Nile virus is still pending. There certainly could be other viral etiologies in play. Continue supportive care. 08/05/2018-still unsure of the etiology. I did find out from the family that the patient was attending a pain management clinic for 10 years. Evidently she was on very large doses of OxyContin. Her sister reports that her pupils were pinpoint when she transported to the emergency department. Unfortunately toxicology screen was not performed on admission. CT scan obtained today showed appropriate changes for her age with regard to cerebral atrophy. No evidence of stroke or inflammatory change. We will attempt to minimize sedation and obtain an EEG on Tuesday to at least look for a baseline. The patient does not respond to verbal stimuli so asleep wake EEG is not obtainable. 08/06/2018-still no appreciable change. The goal is to have her on as little medication as possible (none if possible) for an EEG tomorrow morning. If this shows diffuse abnormality then she could have suffered anoxic brain injury. We are not sure of the specific etiology. 08/07/2018-she appears awake and opens her eyes today. Her pupils are in fact larger than yesterday and they do react to light. She is not on any sedating medications and we are waiting for an EEG to be performed. (2) Atrial fibrillation Qualifiers: Atrial fibrillation type: paroxysmal Qualified Code(s): I48.0 - Paroxysmal atrial fibrillation Is this a current diagnosis for this admission?: Yes Plan: Currently on Cardizem drip. She will is on Cardizem p.o. at home but family briefly mentioned that this was for her hypertension. Will further discuss anticoagulation. Reviewed records from [facility]. Patient apparently has history of paroxysmal A. fib. a few months back, she was told to discuss anticoagulation with her PCP. Discussed with family, who says that this has not been brought to their atte ntion. Discussed benefits and risk of anticoagulation and they will discuss this further. 07/31: Family is still undecided about anticoagulation. CHADVASC score of 5, HAS-BLED score is high at 3. Note that HAS BLED is high at this time due to acute renal failure. Reassess and rediscuss with family when renal function has recovered. 08/01/2017-I am going to start diltiazem through the nasogastric tube as well as metoprolol. Would like to get her off of the diltiazem drip. If we can get her off the pump we can consider an MRI to further assess her brain. If the medications resolve the rapid ventricular response and if sinus rhythm is achieved then certainly the anticoagulation discussion and will be put on hold at this time. 08/02/2018-on her current regimen she has exhibited good pulse control (diltiazem and metoprolol). She is off of the diltiazem drip. Continue current medicatio ns. 08/03/2018-continues sinus rhythm on current regimen. Continue to monitor. 08/04/2018-currently in sinus rhythm with good pulse rate control. Continue current regimen. 08/05/2018-she continues in sinus rhythm. She occasionally has tachycardia. She also occasionally has hypertension. I will increase the metoprolol to 75 mg twice daily. 08/06/2018-there is another self-limited episode of tachycardia today. I am going to increase her metoprolol. Her blood pressure has been slightly elevated as well. 08/07/2018-still in sinus rhythm. She still exhibits some tachycardia. (3) COPD (chronic obstructive pulmonary disease) Qualifiers: Emphysema type: centrilobular Is this a current diagnosis for this admission?: Yes Plan: Not in exacerbation. Breathing treatments as needed. 08/01/2018-she is currently on antibiotics for possible pneumonia. She has nebulized treatments available. Breathing is comfortable at this time. 08/02/2018-she remains on Rocephin for possible pneumonia. I have changed her nebulizer treatments to Xopenex and ipratropium every 6 hours scheduled and Xopenex every 3 hours if needed. 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 08/03/2018-she is on systemic steroids as well as scheduled and as needed nebulizers. We will initiate attempts at weaning likely tomorrow. She appears to be tolerating the ventilator without difficulty. 08/04/2018-continue steroids and nebulizer treatments. Continue Rocephin for pneumonia. Start weaning trials. 08/05/2018-continue current regimen. Pneumonia is improving on current antibiotic regimen. Weaning trials are in progress. 08/06/2018-continue steroids and nebulizer treatments. She has 1 more day of antibiotic therapy but the pneumonia is significantly improved. 08/07/2018-continue nebulizer treatments. We will decrease Decadron to 2 mg twice daily with a goal of weaning off. Decadron was initially for suspected encephalitis/meningitis (4) Hypothyroidism Qualifiers: Hypothyroidism type: unspecified Qualified Code(s): E03.9 - Hypothyroidism, unspecified Is this a current diagnosis for this admission?: Yes Plan: On Synthroid at home. TSH elevated. T3 and T4 normal. 08/01/2018-now that she has a nasogastric tube I will resume her levothyroxine. 08/02/2018-she is back on her regular dose of levothyroxine. 08/03/2018-TSH was elevated. Consider increase in levothyroxine from 75 mcg to 100 mcg. 08/04/2018-it is unlikely that this is due to hypothyroidism. Will increase the levothyroxine to 100 mcg. Her TSH was elevated. Recheck TSH in several months. 08/05/2018-levothyroxine is now 100 mcg daily. The effect will take place slowly. Reassess after discharge. 08/06/2018-monitor on increased levothyroxine. This can cause accelerated heart rate. 08/07/2018-we did increase her levothyroxine dose by 25 mcg. I doubt that this is contributing to her episodes of tachycardia. We will continue to monitor. (5) Hypertension Is this a current diagnosis for this admission?: Yes Plan: Controlled. Currently on Cardizem drip. 08/01/2018-still with intermittent elevated blood pressures. I will reevaluate on the new medication regimen and adjust her medications if required. 08/02/2018-reasonable control on current regimen. 08/03/2018-currently on metoprolol, diltiazem and furosemide. Continue to monitor pressures and adjust medications accordingly. 08/04/2018-blood pressures were slightly low this morning. We will continue to monitor. Will adjust medications based on blood pressure readings. 08/05/2018-due to variable pressures with occasional high readings I have increased her metoprolol to 75 mg twice daily. Continue to monitor blood pressure. 08/06/2018-still with occasional increased blood pressure. Diuresis did improve edema however her BUN is higher. Her blood pressure is up slightly. Will increase the metoprolol. She may need to resume diuresis. 08/07/2018-still with hypertension. She appears to be tolerating the metoprolol. We may need to adjust her medications again. (6) Pneumonia Qualifiers: Pneumonia type: due to unspecified organism Is this a current diagnosis for this admission?: Yes Plan: CXR shows possible LL PNA. On IV antibiotics. Sputum culture ordered. 08/01/2018-awaiting sputum culture. We will continue antibiotics at this time. 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 Her white blood cell count is up to 13.0 today. 08/03/2018-the patient will continue on Rocephin for her pneumonia. Continue to monitor chest x-ray. Monitor white blood cell count. 08/04/2018-x-ray shows improvement. Continue Rocephin. 08/05/2018-by x-ray and clinical exam her pneumonia is markedly improved. Complete antibiotic therapy as ordered. 08/06/2018-improved. Will administer antibiotics until the scheduled stop date. 08/07/2018-the x-ray shows improvement. Clinically she seems improved. There is occasional lake-colored sputum from the endotracheal tube. Her white blood cell count is elevated again. We will obtain cultures and consider broad spectrum antibiotics. She did have a low-grade temperature earlier today. (7) Acute kidney injury Is this a current diagnosis for this admission?: Yes Plan: Her urine output improved with IV fluid bolus. Increase fluids to 125 cc/hr. Repeat BMP tomorrow. 08/01/2018-urine output is improved unfortunately the serum creatinine is higher today. We will continue gentle IV fluids and monitor her function. With the elevated creatinine and her blood culture growing a coagulase-negative staph, which is likely contaminant, we will discontinue the vancomycin. 08/02/2018-her serum creatinine is slightly better today. Unfortunately her BUN is higher. We may need to administer more free water through the nasogastric tube. She also may need resumption of IV fluids. 08/03/2018-serum creatinine again is improved. BUN is no better. Will recheck tomorrow. If no change consider increased free water. 08/04/2018-serum creatinine is about the same. The patient is slightly puffy. We will continue to adjust diuretics. Attempt a negative fluid balance but we will watch the renal function as well. 08/05/2018-the serum creatinine continues to improve. Today it is 2.04. Unfortunately her BUN is higher. I am monitoring her fluids and have added increased free fluid through tube flushes. 08/06/2018-the BUN again is up slightly. The serum creatinine is currently plateaued. I will administer fluid (200 mL/h challenge x1 L) and reevaluate. Someone 19-creatinine stayed at 1.5. Her BUN is increased. She is receiving half-normal saline at 200 mL an hour for 1 L. After 1 L we will recheck her laboratory studies. (8) Pulmonary hypertension Is this a current diagnosis for this admission?: Yes Plan: 08/02/2018-we did review the echocardiogram obtained during this hospitalization. She does have significant pulmonary hypertension with right ventricular systolic pressures between 59 and 64. 08/03/2018-no acute intervention at this time except good pulse and blood pressure control. 08/04/2018-as per global treatment plan 08/05/2018-continue to control pulse and blood pressure as well as fluid status. No need for repeat echocardiogram at this time. 08/06/2018-no changes to current regimen. 08/07/2018-no specific intervention at this time. Continue global treatment plan. (9) Tricuspid regurgitation Qualifiers: Cardiac valve disease etiology: nonrheumatic Qualified Code(s): I36.1 - Nonrheumatic tricuspid (valve) insufficiency Is this a current diagnosis for this admission?: Yes Plan: The echocardiogram revealed moderate to severe tricuspid regurgitation. 08/03/2018-no specific intervention other than current treatment plan. 08/04/2018-as per global treatment plan 08/05/2018-no dedicated treatment plan for tricuspid regurgitation. Continue good blood pressure and heart rate control. 08/06/2018-as noted above adjustments are being made with fluid and diuretics as well as antihypertensives. 08/07/2018-continue current global treatment plan with no specific intervention for the regurgitation. (10) Acute diastolic heart failure Is this a current diagnosis for this admission?: Yes Plan: 08/02/2018-the echocardiogram also revealed grade 1/4 diastolic dysfunction. Systolic function is intact with an ejection fraction of 75%. 08/03/2018-continue to monitor cardiac status and fluid balance. We will try to achieve negative fluid balance consistently. 08/04/2018-we will try to maintain a negative fluid balance but will continue to monitor renal function and blood pressure 08/05/2018-we are maintaining a negative fluid balance. I am adding free water through the PEG tube. 08/06/2018-she does seem to be dry again. Fluid challenge as noted above. 08/07/2018-appears to be in a negative fluid balance. Administering 1 L of IV fluid. We will continue to monitor. (11) Acute and chronic respiratory failure with hypoxia Is this a current diagnosis for this admission?: Yes Plan: 08/02/2018-due to increased work of breathing and worsening shortness of breath with hypoxia it was decided to electively intubate the patient. We will try and keep sedation to a minimum as we are looking for neurologic recovery. Pulmo nology is consulting as well. 08/03/2018-the patient was intubated yesterday. She appears to be resting comfortably on the ventilator. Will try to initiate weaning trials. 08/04/2018-we will attempt sedation vacations daily. Will attempt weaning trials daily. 08/05/2018-she is weaning quite comfortably today. Continue aggressive weaning with a goal of extubation. 08/06/2018-continue current regimen. 08/07/2018-continue weaning trials with the goal of extubation as soon as possible (12) Hypernatremia Is this a current diagnosis for this admission?: Yes Plan: 08/06/2018-sodium level is up. Will administer more half-normal saline as noted above. Continue to monitor electrolytes. 08/07/2018-the serum sodium is above the normal range. Half-normal saline is being administered. Recheck electrolytes this afternoon. - Time Time Spent with patient: 25-34 minutes Medications reviewed and adjusted accordingly: Yes
[2018-08-07 10:14] LABS: APPEARANCE,URINE CLOUDY; BILIRUBIN,URINE NEGATIVE (NEGATIVE); COLOR,URINE YELLOW; GLUCOSE, URINE NEGATIVE (NEGATIVE); KETONES,URINE NEGATIVE (NEGATIVE); LEUKOCYTE ESTERASE,URINE NEGATIVE (NEGATIVE); NITRITE,URINE NEGATIVE (NEGATIVE); PROTEIN,URINE 30 mg/dL (NEGATIVE); URINE SPECIFIC GRAVITY 1.017; UROBILINOGEN,URINE NEGATIVE mg/dL (<2.0)
--- NOTE | 2018-08-07 10:47 | PDOC PROGRESS REPORT ---
Subjective Progress Note for:: 08/04/18 Subjective:: patient currently intubated and sedated Reason For Visit: ACUTE ENCEPHALOPATHY, R/O MENINGITIS Physical Exam Vital Signs: Temp Pulse Resp BP Pulse Ox 99.7 F 98 18 165/75 H 95 08/07/18 08:00 08/07/18 10:00 08/07/18 10:00 08/07/18 10:00 08/07/18 10:00 Intake & Output 08/06/18 08/07/18 08/08/18 06:59 06:59 06:59 Intake Total 1068 1574 Output Total 2360 2125 35 Balance -1292 -551 -35 Weight 63.5 kg 64.3 kg General appearance: PRESENT: no acute distress Head exam: PRESENT: atraumatic, normocephalic Eye exam: PRESENT: conjunctiva pink, EOMI, PERRLA. ABSENT: scleral icterus Ear exam: PRESENT: normal external ear exam Mouth exam: PRESENT: moist, tongue midline, other - ET TUBE IN PLACE Neck exam: ABSENT: carotid bruit, JVD, lymphadenopathy, thyromegaly Respiratory exam: PRESENT: clear to auscultation sridevi. ABSENT: rales, rhonchi, wheezes Cardiovascular exam: PRESENT: RRR. ABSENT: diastolic murmur, rubs, systolic murmur Pulses: PRESENT: normal dorsalis pedis pul Vascular exam: PRESENT: normal capillary refill GI/Abdominal exam: PRESENT: normal bowel sounds, soft. ABSENT: distended, guarding, mass, organolmegaly, rebound, tenderness Rectal exam: PRESENT: deferred Gentrourinary exam: PRESENT: indwelling catheter Extremities exam: PRESENT: full ROM. ABSENT: calf tenderness, clubbing, pedal edema Neurological exam: ABSENT: awake, motor sensory deficit Psychiatric exam: ABSENT: homicidal ideation, suicidal ideation Skin exam: PRESENT: dry, intact, warm. ABSENT: cyanosis, rash Results Laboratory Results: 08/07/18 04:58 08/07/18 04:58 08/06/18 08/07/18 08/07/18 18:55 00:19 04:58 WBC RBC Hgb Hct MCV MCH MCHC RDW Plt Count Seg Neutrophils % Lymphocytes % Monocytes % Eosinophils % Basophils % Absolute Neutrophils Absolute Lymphocytes Absolute Monocytes Absolute Eosinophils Absolute Basophils Carbonic Acid HCO3/H2CO3 Ratio ABG pH ABG pCO2 ABG pO2 ABG HCO3 ABG O2 Saturation ABG Base Excess FiO2 Sodium 144.8 145.8 H 146.2 H Potassium 3.4 L 3.4 L 3.6 Chloride 111 H 119 H 115 H Carbon Dioxide 23 21 L 21 L Anion Gap 11 6 10 BUN 81 H 75 H 80 H Creatinine 1.84 H 1.52 H 1.51 H Est GFR ( Amer) 32 L 40 L 40 L Est GFR (Non-Af Amer) 26 L 33 L 33 L Glucose 253 H 180 H 221 H Calcium 8.6 7.4 L 8.5 Magnesium 2.2 Urine Color Urine Appearance Urine pH Ur Specific [place] Urine Protein Urine Glucose (UA) Urine Ketones Urine Blood Urine Nitrite Ur Leukocyte Esterase Urine WBC (Auto) Urine RBC (Auto) 08/07/18 08/07/18 08/07/18 04:58 05:02 09:00 WBC 18.7 H RBC 3.15 L Hgb 10.3 L Hct 30.5 L MCV 97 MCH 32.6 MCHC 33.7 RDW 14.0 Plt Count 121 L Seg Neutrophils % Not Reportable Lymphocytes % Not Reportable Monocytes % Not Reportable Eosinophils % Not Reportable Basophils % Not Reportable Absolute Neutrophils Not Reportable Absolute Lymphocytes Not Reportable Absolute Monocytes Not Reportable Absolute Eosinophils Not Reportable Absolute Basophils Not Reportable Carbonic Acid 0.85 L HCO3/H2CO3 Ratio 24:1 ABG pH 7.48 H ABG pCO2 28.3 L ABG pO2 95.1 ABG HCO3 20.7 ABG O2 Saturation 97.8 ABG Base Excess -1.6 FiO2 35% Sodium Potassium Chloride Carbon Dioxide Anion Gap BUN Creatinine Est GFR ( Amer) Est GFR (Non-Af Amer) Glucose Calcium Magnesium Urine Color YELLOW Urine Appearance CLOUDY Urine pH 5.0 Ur Specific [place] 1.017 Urine Protein 30 H Urine Glucose (UA) NEGATIVE Urine Ketones NEGATIVE Urine Blood MODERATE H Urine Nitrite NEGATIVE Ur Leukocyte Esterase NEGATIVE Urine WBC (Auto) 5 Urine RBC (Auto) 4 07/29/18 07/29/18 07/30/18 10:42 10:42 04:10 Creatine Kinase 176 H CK-MB (CK-2) Troponin I 0.021 NT-Pro-B Natriuret Pep 1490 H 07/31/18 07/31/18 08/05/18 03:05 03:05 05:04 Creatine Kinase 708 H CK-MB (CK-2) 14.10 H Troponin I NT-Pro-B Natriuret Pep 3540 H Impressions: Guidance Fluoroscopy 07/29/18 12:37 IMPRESSION: Attempted Lumbar puncture under fluoroscopy. Recommend conscious sedation with anesthesia assistance. KUB X-Ray 08/01/18 10:30 IMPRESSION: NG tube is doubled back upon itself at the GE junction. Head CT 08/05/18 00:00 IMPRESSION: MILD CHRONIC CHANGES OF ATROPHY AND MICROVASCULAR ISCHEMIA. NO ACUTE PROCESS. EVIDENCE OF ACUTE STROKE: NO. Chest X-Ray 08/07/18 06:00 IMPRESSION: Tubes and lines in good positioning. No acute infiltrates. Old bilateral rib fractures Assessment & Plan - Diagnosis (1) Acute and chronic respiratory failure with hypoxia Is this a current diagnosis for this admission?: Yes Plan: currently on mechanical ventilation (2) Acute kidney injury Is this a current diagnosis for this admission?: Yes Plan: gentle diuresis (3) COPD (chronic obstructive pulmonary disease) Qualifiers: Emphysema type: centrilobular Is this a current diagnosis for this admission?: Yes Plan: laba+lama (4) Pulmonary hypertension Is this a current diagnosis for this admission?: Yes Plan: no intervention at this time (5) Acute encephalopathy Is this a current diagnosis for this admission?: Yes Plan: culture blood, urine, sputum, csf - Time Total Critical Time (Minutes): 50 Inpatient Scribe Statement - . Entered by Bethany Swanson, acting as scribe for Dr. Hanson.
--- NOTE | 2018-08-07 11:06 | PDOC PROGRESS REPORT ---
Subjective Progress Note for:: 08/05/18 Subjective:: patient currently intubated and sedated, successful weaning trials Reason For Visit: ACUTE ENCEPHALOPATHY, R/O MENINGITIS Physical Exam Vital Signs: Temp Pulse Resp BP Pulse Ox 99.7 F 98 18 165/75 H 95 08/07/18 08:00 08/07/18 10:00 08/07/18 10:00 08/07/18 10:00 08/07/18 10:00 Intake & Output 08/06/18 08/07/18 08/08/18 06:59 06:59 06:59 Intake Total 1068 1574 Output Total 2360 2125 35 Balance -1292 -551 -35 Weight 63.5 kg 64.3 kg General appearance: PRESENT: no acute distress, well-developed, well-nourished Head exam: PRESENT: atraumatic, normocephalic Eye exam: PRESENT: conjunctiva pink, EOMI, PERRLA. ABSENT: scleral icterus Ear exam: PRESENT: normal external ear exam Mouth exam: PRESENT: moist, tongue midline, other - ET TUBE IN PLACE Neck exam: ABSENT: carotid bruit, JVD, lymphadenopathy, thyromegaly Respiratory exam: PRESENT: symmetrical, wheezes. ABSENT: rales, rhonchi Cardiovascular exam: PRESENT: RRR. ABSENT: diastolic murmur, rubs, systolic murmur Pulses: PRESENT: normal dorsalis pedis pul Vascular exam: PRESENT: normal capillary refill GI/Abdominal exam: PRESENT: normal bowel sounds, soft. ABSENT: distended, guarding, mass, organolmegaly, rebound, tenderness Rectal exam: PRESENT: deferred Extremities exam: PRESENT: full ROM. ABSENT: calf tenderness, clubbing, pedal edema Neurological exam: ABSENT: awake Psychiatric exam: PRESENT: appropriate affect, normal mood. ABSENT: homicidal ideation, suicidal ideation Skin exam: PRESENT: dry, intact, warm. ABSENT: cyanosis, rash Results Laboratory Results: 08/07/18 04:58 08/07/18 04:58 08/06/18 08/07/18 08/07/18 18:55 00:19 04:58 WBC RBC Hgb Hct MCV MCH MCHC RDW Plt Count Seg Neutrophils % Lymphocytes % Monocytes % Eosinophils % Basophils % Absolute Neutrophils Absolute Lymphocytes Absolute Monocytes Absolute Eosinophils Absolute Basophils Carbonic Acid HCO3/H2CO3 Ratio ABG pH ABG pCO2 ABG pO2 ABG HCO3 ABG O2 Saturation ABG Base Excess FiO2 Sodium 144.8 145.8 H 146.2 H Potassium 3.4 L 3.4 L 3.6 Chloride 111 H 119 H 115 H Carbon Dioxide 23 21 L 21 L Anion Gap 11 6 10 BUN 81 H 75 H 80 H Creatinine 1.84 H 1.52 H 1.51 H Est GFR ( Amer) 32 L 40 L 40 L Est GFR (Non-Af Amer) 26 L 33 L 33 L Glucose 253 H 180 H 221 H Calcium 8.6 7.4 L 8.5 Magnesium 2.2 Urine Color Urine Appearance Urine pH Ur Specific [place] Urine Protein Urine Glucose (UA) Urine Ketones Urine Blood Urine Nitrite Ur Leukocyte Esterase Urine WBC (Auto) Urine RBC (Auto) 08/07/18 08/07/18 08/07/18 04:58 05:02 09:00 WBC 18.7 H RBC 3.15 L Hgb 10.3 L Hct 30.5 L MCV 97 MCH 32.6 MCHC 33.7 RDW 14.0 Plt Count 121 L Seg Neutrophils % Not Reportable Lymphocytes % Not Reportable Monocytes % Not Reportable Eosinophils % Not Reportable Basophils % Not Reportable Absolute Neutrophils Not Reportable Absolute Lymphocytes Not Reportable Absolute Monocytes Not Reportable Absolute Eosinophils Not Reportable Absolute Basophils Not Reportable Carbonic Acid 0.85 L HCO3/H2CO3 Ratio 24:1 ABG pH 7.48 H ABG pCO2 28.3 L ABG pO2 95.1 ABG HCO3 20.7 ABG O2 Saturation 97.8 ABG Base Excess -1.6 FiO2 35% Sodium Potassium Chloride Carbon Dioxide Anion Gap BUN Creatinine Est GFR ( Amer) Est GFR (Non-Af Amer) Glucose Calcium Magnesium Urine Color YELLOW Urine Appearance CLOUDY Urine pH 5.0 Ur Specific [place] 1.017 Urine Protein 30 H Urine Glucose (UA) NEGATIVE Urine Ketones NEGATIVE Urine Blood MODERATE H Urine Nitrite NEGATIVE Ur Leukocyte Esterase NEGATIVE Urine WBC (Auto) 5 Urine RBC (Auto) 4 07/29/18 07/29/18 07/30/18 10:42 10:42 04:10 Creatine Kinase 176 H CK-MB (CK-2) Troponin I 0.021 NT-Pro-B Natriuret Pep 1490 H 07/31/18 07/31/18 08/05/18 03:05 03:05 05:04 Creatine Kinase 708 H CK-MB (CK-2) 14.10 H Troponin I NT-Pro-B Natriuret Pep 3540 H Impressions: Guidance Fluoroscopy 07/29/18 12:37 IMPRESSION: Attempted Lumbar puncture under fluoroscopy. Recommend conscious sedation with anesthesia assistance. KUB X-Ray 08/01/18 10:30 IMPRESSION: NG tube is doubled back upon itself at the GE junction. Head CT 08/05/18 00:00 IMPRESSION: MILD CHRONIC CHANGES OF ATROPHY AND MICROVASCULAR ISCHEMIA. NO ACUTE PROCESS. EVIDENCE OF ACUTE STROKE: NO. Chest X-Ray 08/07/18 06:00 IMPRESSION: Tubes and lines in good positioning. No acute infiltrates. Old bilateral rib fractures Assessment & Plan - Diagnosis (1) Acute and chronic respiratory failure with hypoxia Is this a current diagnosis for this admission?: Yes Plan: currently on mechanical ventilation (2) Acute kidney injury Is this a current diagnosis for this admission?: Yes Plan: gentle diuresis (3) COPD (chronic obstructive pulmonary disease) Qualifiers: Emphysema type: centrilobular Is this a current diagnosis for this admission?: Yes Plan: laba+lama, not currently exacerbated (4) Pulmonary hypertension Is this a current diagnosis for this admission?: Yes Plan: no intervention at this time (5) Acute encephalopathy Is this a current diagnosis for this admission?: Yes Plan: culture blood, urine, sputum, csf - Time Total Critical Time (Minutes): 45 Inpatient Scribe Statement - . Entered by Bethany Swanson, acting as scribe for Dr. Hanson.
--- NOTE | 2018-08-07 11:09 | PDOC PROGRESS REPORT ---
Subjective Progress Note for:: 08/06/18 Subjective:: patient currently intubated and sedated, continue weaning trials Reason For Visit: ACUTE ENCEPHALOPATHY, R/O MENINGITIS Physical Exam Vital Signs: Temp Pulse Resp BP Pulse Ox 99.7 F 98 18 165/75 H 95 08/07/18 08:00 08/07/18 10:00 08/07/18 10:00 08/07/18 10:00 08/07/18 10:00 Intake & Output 08/06/18 08/07/18 08/08/18 06:59 06:59 06:59 Intake Total 1068 1574 Output Total 2360 2125 35 Balance -1292 -551 -35 Weight 63.5 kg 64.3 kg General appearance: PRESENT: no acute distress Head exam: PRESENT: atraumatic, normocephalic Eye exam: PRESENT: conjunctiva pink, EOMI, PERRLA. ABSENT: scleral icterus Ear exam: PRESENT: normal external ear exam Mouth exam: PRESENT: moist, tongue midline, other - et tube in place Neck exam: ABSENT: carotid bruit, JVD, lymphadenopathy, thyromegaly Respiratory exam: PRESENT: clear to auscultation sridevi. ABSENT: rales, rhonchi, wheezes Cardiovascular exam: PRESENT: RRR. ABSENT: diastolic murmur, rubs, systolic murmur Pulses: PRESENT: normal dorsalis pedis pul Vascular exam: PRESENT: normal capillary refill GI/Abdominal exam: PRESENT: normal bowel sounds, soft. ABSENT: distended, guarding, mass, organolmegaly, rebound, tenderness Rectal exam: PRESENT: deferred Extremities exam: PRESENT: full ROM. ABSENT: calf tenderness, clubbing, pedal edema Neurological exam: ABSENT: awake, motor sensory deficit Psychiatric exam: PRESENT: appropriate affect, normal mood. ABSENT: homicidal ideation, suicidal ideation Skin exam: PRESENT: dry, intact, warm. ABSENT: cyanosis, rash Results Laboratory Results: 08/07/18 04:58 08/07/18 04:58 08/06/18 08/07/18 08/07/18 18:55 00:19 04:58 WBC RBC Hgb Hct MCV MCH MCHC RDW Plt Count Seg Neutrophils % Lymphocytes % Monocytes % Eosinophils % Basophils % Absolute Neutrophils Absolute Lymphocytes Absolute Monocytes Absolute Eosinophils Absolute Basophils Carbonic Acid HCO3/H2CO3 Ratio ABG pH ABG pCO2 ABG pO2 ABG HCO3 ABG O2 Saturation ABG Base Excess FiO2 Sodium 144.8 145.8 H 146.2 H Potassium 3.4 L 3.4 L 3.6 Chloride 111 H 119 H 115 H Carbon Dioxide 23 21 L 21 L Anion Gap 11 6 10 BUN 81 H 75 H 80 H Creatinine 1.84 H 1.52 H 1.51 H Est GFR ( Amer) 32 L 40 L 40 L Est GFR (Non-Af Amer) 26 L 33 L 33 L Glucose 253 H 180 H 221 H Calcium 8.6 7.4 L 8.5 Magnesium 2.2 Urine Color Urine Appearance Urine pH Ur Specific [place] Urine Protein Urine Glucose (UA) Urine Ketones Urine Blood Urine Nitrite Ur Leukocyte Esterase Urine WBC (Auto) Urine RBC (Auto) 08/07/18 08/07/18 08/07/18 04:58 05:02 09:00 WBC 18.7 H RBC 3.15 L Hgb 10.3 L Hct 30.5 L MCV 97 MCH 32.6 MCHC 33.7 RDW 14.0 Plt Count 121 L Seg Neutrophils % Not Reportable Lymphocytes % Not Reportable Monocytes % Not Reportable Eosinophils % Not Reportable Basophils % Not Reportable Absolute Neutrophils Not Reportable Absolute Lymphocytes Not Reportable Absolute Monocytes Not Reportable Absolute Eosinophils Not Reportable Absolute Basophils Not Reportable Carbonic Acid 0.85 L HCO3/H2CO3 Ratio 24:1 ABG pH 7.48 H ABG pCO2 28.3 L ABG pO2 95.1 ABG HCO3 20.7 ABG O2 Saturation 97.8 ABG Base Excess -1.6 FiO2 35% Sodium Potassium Chloride Carbon Dioxide Anion Gap BUN Creatinine Est GFR ( Amer) Est GFR (Non-Af Amer) Glucose Calcium Magnesium Urine Color YELLOW Urine Appearance CLOUDY Urine pH 5.0 Ur Specific [place] 1.017 Urine Protein 30 H Urine Glucose (UA) NEGATIVE Urine Ketones NEGATIVE Urine Blood MODERATE H Urine Nitrite NEGATIVE Ur Leukocyte Esterase NEGATIVE Urine WBC (Auto) 5 Urine RBC (Auto) 4 07/29/18 07/29/18 07/30/18 10:42 10:42 04:10 Creatine Kinase 176 H CK-MB (CK-2) Troponin I 0.021 NT-Pro-B Natriuret Pep 1490 H 07/31/18 07/31/18 08/05/18 03:05 03:05 05:04 Creatine Kinase 708 H CK-MB (CK-2) 14.10 H Troponin I NT-Pro-B Natriuret Pep 3540 H Impressions: Guidance Fluoroscopy 07/29/18 12:37 IMPRESSION: Attempted Lumbar puncture under fluoroscopy. Recommend conscious sedation with anesthesia assistance. KUB X-Ray 08/01/18 10:30 IMPRESSION: NG tube is doubled back upon itself at the GE junction. Head CT 08/05/18 00:00 IMPRESSION: MILD CHRONIC CHANGES OF ATROPHY AND MICROVASCULAR ISCHEMIA. NO ACUTE PROCESS. EVIDENCE OF ACUTE STROKE: NO. Chest X-Ray 08/07/18 06:00 IMPRESSION: Tubes and lines in good positioning. No acute infiltrates. Old bilateral rib fractures Assessment & Plan - Diagnosis (1) Acute and chronic respiratory failure with hypoxia Is this a current diagnosis for this admission?: Yes Plan: currently on mechanical ventilation (2) Acute kidney injury Is this a current diagnosis for this admission?: Yes Plan: gentle diuresis (3) COPD (chronic obstructive pulmonary disease) Qualifiers: Emphysema type: centrilobular Is this a current diagnosis for this admission?: Yes Plan: laba+lama, not currently exacerbated (4) Pulmonary hypertension Is this a current diagnosis for this admission?: Yes Plan: no intervention at this time (5) Acute encephalopathy Is this a current diagnosis for this admission?: Yes Plan: culture blood, urine, sputum, csf - Time Total Critical Time (Minutes): 50 Inpatient Scribe Statement - . Entered by Bethany Swanson, acting as scribe for Dr. Hanson.
[2018-08-07] MEDS: CEFTRIAXONE 2 GM/D5W RTU 2 GM/50 ML RTUPB IV SCH (11:17)
[2018-08-07] MEDS: DEXAMETHASONE SOD PHOSPHATE INJ 4 MG/1 ML VIAL IV SCH ×2 (11:18→21:30)
[2018-08-07] MEDS: HEPARIN SOD (PORCINE) 5,000 UNIT/ML 1 ML SYRINGE SUBCUT SCH ×2 (11:18→21:30)
[2018-08-07] MEDS: METOPROLOL TARTRATE 50 MG TABLET NG SCH ×2 (11:18→21:31)
[2018-08-07] MEDS: PANTOPRAZOLE SODIUM 40 MG VIAL IV SCH (11:18)
[2018-08-07] MEDS: POTASSIUM CHLORIDE 20 MEQ PACKET NG SCH ×2 (11:19→21:30)
[2018-08-07] MEDS: FUROSEMIDE INJ/PF 20 MG/2 ML SDV IV SCH (11:19)
[2018-08-07] MEDS: ASPIRIN 81 MG TABLET, CHEWABLE NG SCH (11:19)
[2018-08-07 15:58] LABS: ANION GAP 10 (5-19); BLOOD UREA NITROGEN 80 mg/dL (7-20); CALCIUM 8.5 mg/dL (8.4-10.2); CARBON DIOXIDE 23 mmol/L (22-30); CHLORIDE 113 mmol/L (98-107); GLUCOSE 184 mg/dL (75-110); POTASSIUM 3.8 mmol/L (3.6-5.0); SODIUM 145.8 mmol/L (137-145)
[2018-08-07 16:47] LABS: WEST NILE VIRUS IGG Negative (Negative); WEST NILE VIRUS IGM Negative (Negative)
[2018-08-07] MEDS: AMINO AC/PROTEIN HYDR/WHEY PRO 11 GM/45 ML PKT NG SCH (17:52)
[2018-08-07] MEDS: 1/2 NORMAL SALINE 1,000 ML IV PRN ×2 (18:52→22:19)
[2018-08-08] MEDS: IPRATROPIUM BROMIDE 0.02% NEB 0.5 MG/2.5 ML AMPUL NEB SCH ×4 (02:15→20:56)
[2018-08-08] MEDS: LEVALBUTEROL HCL NEB 0.63 MG/3 ML AMPUL NEB SCH ×4 (02:15→20:56)
[2018-08-08] MEDS: 1/2 NORMAL SALINE 1,000 ML IV PRN ×4 (02:22→17:49)
[2018-08-08 05:16] LABS: ARTERIAL BLOOD BASE EXCESS -3.2 mmol/L; ARTERIAL BLOOD HCO3 18.6 mmol/L (20-24); ARTERIAL BLOOD O2 SATURATION 91.5 % (94-98); ARTERIAL BLOOD PCO2 23.2 mmHg (35-45); ARTERIAL BLOOD PH 7.52 (7.35-7.45); ARTERIAL BLOOD PO2 52.9 mmHg (80-100); ARTERIAL BLOOD TOTAL CO2 19.4 mmol/L (21-25)
[2018-08-08 05:17] LABS: ARTERIAL BLOOD FIO2 40%
[2018-08-08 05:18] LABS: HEMATOCRIT 24.8 % (36.0-47.0); HEMOGLOBIN 8.3 g/dL (12.0-15.5); MEAN CORPUSCULAR HEMOGLOBIN 32.3 pg (27.0-33.4); MEAN CORPUSCULAR HGB CONC 33.3 g/dL (32.0-36.0); MEAN CORPUSCULAR VOLUME 97 fl (80-97); PLATELET COUNT 112 10^3/uL (150-450); RED BLOOD COUNT 2.56 10^6/uL (3.72-5.28); WHITE BLOOD COUNT 20.8 10^3/uL (4.0-10.5)
[2018-08-08] MEDS: LEVOTHYROXINE SODIUM 0.1 MG TABLET NG SCH (05:34)
[2018-08-08] MEDS: INSULIN LISPRO 100 UNIT/ML 3 ML VIAL SUBCUT SCH ×3 (05:34→18:44)
[2018-08-08] MEDS: DILTIAZEM HCL 60 MG TABLET NG SCH ×4 (05:35→23:28)
[2018-08-08 05:37] LABS: ANION GAP 7 (5-19); BLOOD UREA NITROGEN 72 mg/dL (7-20); CALCIUM 7.9 mg/dL (8.4-10.2); CARBON DIOXIDE 22 mmol/L (22-30); CHLORIDE 112 mmol/L (98-107); GLUCOSE 194 mg/dL (75-110); POTASSIUM 3.8 mmol/L (3.6-5.0); SODIUM 140.5 mmol/L (137-145)
--- NOTE | 2018-08-08 06:02 | NEURO WORKBENCH EEG REPORT ---
EEG Report Patient: Lindsay Roque ID: [id number] Referring Doctor: Luciano Anne Date: 08/07/2018 Reason for study: Evaluate Encephalopathy Medications: Rocephin, Decadron, Cardizem, Furosemide, Atrovent, Xopenex, Synthroid, Lopressor, Protonix History: This is a 82 year old female with a history of hypothyroidism, PVD, CAD, prior DVT, HTN, Hypercholesterolemia, emphysema, depression and tobacco use. She was intubated on August 03, 2018 and off of sedation since August 06, 2018 at 13:42. Body temperature was 37.5 at time of study. This EEG was requested for evaluation of encephalopathy and possible epileptiform activity. EEG Interpretation This EEG was recorded in the ICU and patient is intubated. There were no apparent spontaneous eye openings or closings, but the telegraph repeater technician manually opened and closed the patients eyes multiple times. The EEG is not clearly reactive after stimuli. The backgound EEG shows diffuse polymorphic low amplitude 4-6 Hz theta activity with intermixed polymorphic 1-3 Hz delta activity. With eye closure there is no occipital dominant rhythm present. There were no obvious asymmetries in amplitude or frequencies. Photic stimulation was done and no photic driving was not noted. Frequent frontally predominant Generalized Periodic Discharges were noted throughout the study. There were periods of EMG artifact obscuring the bitemporal regions and other times more diffusely. There was no definitive normal sleep architecture present (no K-complexes, vertex waves, or sleep spindles). There were no localized sharp waves or spikes, and there were no seizures noted. The EKG showed a typically regular rhythm with rare irregularity noted, and rates typically in the 75-85 range. EEG Impression This is a markedly abnormal EEG and consistent with diffuse cerebral dysfunction. Generalized Periodic Discharges are non-specific in etiology but seen in diverse clinical settings including hypoxic-ischemic injury, drug intoxication, metabolic derangements (such as hepatic or renal encephalopathy), central nervous system infections, sepsis, and as the terminal EEG sign of generalized convulsive status epilepticus. Note that no seizures were noted on this EEG. If there is strong concern for clinical or sub-clinical seizure activity then long-term EEG monitoring would be advised or additional repeat routine EEGs if long-term monitoring is not available. INTERPRETING NEUROLOGIST: Noman Palmer MD Board certified by the [place] [employer] in Neurology, Clinical Neurophysiology, and Sleep Medicine [facility]
[2018-08-08 06:07] LABS: ABSOLUTE LYMPHOCYTES# (MANUAL) 0.6 10^3/uL (0.5-4.7); ABSOLUTE MONOCYTES # (MANUAL) 0.2 10^3/uL (0.1-1.4); BAND NEUTROPHILS % (MANUAL) 2 % (3-5); BASOPHILS % (MANUAL) 0 % (0-2); EOSINOPHILS % (MANUAL) 0 % (0-6); LYMPHOCYTES % (MANUAL) 3 % (13-45); MONOCYTES % (MANUAL) 1 % (3-13); SEGMENTED NEUTROPHILS % (MAN) 94 % (42-78); TOTAL CELLS COUNTED 100
[2018-08-08 06:08] LABS: HYPOCHROMASIA 2+
[2018-08-08 06:09] LABS: PLATELET COMMENT DECREASED
--- NOTE | 2018-08-08 07:16 | RADIOLOGY REPORT (SQ) ---
EXAM DESCRIPTION: XR CHEST 1 VIEW COMPLETED DATE/TME: 08/08/2018 06:00 CLINICAL HISTORY: 82 years Female, resp failure COMPARISON: One day prior. NUMBER OF VIEWS/TECHNIQUE: 1/AP FINDINGS: Prominent interstitium.Adequate appearing endotracheal tube. Adequate appearing enteric tube partially obscured. Adequate appearing left jugular central line. Atherosclerotic vascular disease. Normal cardiac silhouette size. No pneumothorax. Stable bony thorax. IMPRESSION: No significant change.
[2018-08-08] MEDS: PANTOPRAZOLE SODIUM 40 MG VIAL IV SCH (10:23)
[2018-08-08] MEDS: METOPROLOL TARTRATE 50 MG TABLET NG SCH ×2 (10:24→23:27)
[2018-08-08] MEDS: FUROSEMIDE INJ/PF 20 MG/2 ML SDV IV SCH (10:24)
[2018-08-08] MEDS: HEPARIN SOD (PORCINE) 5,000 UNIT/ML 1 ML SYRINGE SUBCUT SCH ×2 (10:25→23:27)
[2018-08-08] MEDS: POTASSIUM CHLORIDE 20 MEQ PACKET NG SCH ×2 (10:25→23:28)
[2018-08-08] MEDS: ASPIRIN 81 MG TABLET, CHEWABLE NG SCH (10:25)
--- NOTE | 2018-08-08 13:24 | PDOC PROGRESS REPORT ---
Subjective Progress Note for:: 08/08/18 Subjective:: Patient is new to me. This is a 82 years old female patient with past medical history of COPD, hypothyroidism, hypertension, upper lipidemia, peripheral arterial disease status post left femoral stenting and tobacco dependence brought by EMS for unresponsiveness and confusion. Reportedly patient has fever and acute confusional state with agitation and combativeness for which she was given Ativan, Haldol and ketamine in route to ER. On the fourth day of her admission patient become hypoxic and decompensated which requires emergent intubation and transferred to ICU. Her EEG reported as markedly abnormal EEG and consistent with diffuse cerebral dysfunction. This morning I discussed with her daughter and other family members the prognosis of the patient. Patient shows some slight improvement that she responds to verbal stimuli appropriately and she also follow commands. We will taper her oxygen and will try her to have her of ventilation. Reason For Visit: ACUTE ENCEPHALOPATHY, R/O MENINGITIS Physical Exam Vital Signs: Temp Pulse Resp BP Pulse Ox 99.3 F 85 23 H 147/61 H 96 08/08/18 12:00 08/08/18 12:00 08/08/18 12:00 08/08/18 12:00 08/08/18 12:37 Intake & Output 08/07/18 08/08/18 08/09/18 06:59 06:59 06:59 Intake Total 1574 3997 Output Total 2125 2635 845 Balance -551 1362 -845 Weight 64.3 kg 65 kg Results Laboratory Results: 08/08/18 05:00 08/08/18 05:00 08/07/18 08/08/18 08/08/18 15:15 05:00 05:00 WBC RBC Hgb Hct MCV MCH MCHC RDW Plt Count Seg Neutrophils % Lymphocytes % Monocytes % Eosinophils % Basophils % Absolute Neutrophils Absolute Lymphocytes Absolute Monocytes Absolute Eosinophils Absolute Basophils Carbonic Acid 0.70 L HCO3/H2CO3 Ratio 26:1 ABG pH 7.52 H ABG pCO2 23.2 L ABG pO2 52.9 L ABG HCO3 18.6 L ABG O2 Saturation 91.5 L ABG Base Excess -3.2 FiO2 40% Sodium 145.8 H 140.5 Potassium 3.8 3.8 Chloride 113 H 112 H Carbon Dioxide 23 22 Anion Gap 10 7 BUN 80 H 72 H Creatinine 1.54 H 1.33 H Est GFR ( Amer) 39 L 46 L Est GFR (Non-Af Amer) 32 L 38 L Glucose 184 H 194 H Calcium 8.5 7.9 L Magnesium 1.9 08/08/18 05:00 WBC 20.8 H RBC 2.56 L Hgb 8.3 L Hct 24.8 L MCV 97 MCH 32.3 MCHC 33.3 RDW 14.0 Plt Count 112 L Seg Neutrophils % Not Reportable Lymphocytes % Not Reportable Monocytes % Not Reportable Eosinophils % Not Reportable Basophils % Not Reportable Absolute Neutrophils Not Reportable Absolute Lymphocytes Not Reportable Absolute Monocytes Not Reportable Absolute Eosinophils Not Reportable Absolute Basophils Not Reportable Carbonic Acid HCO3/H2CO3 Ratio ABG pH ABG pCO2 ABG pO2 ABG HCO3 ABG O2 Saturation ABG Base Excess FiO2 Sodium Potassium Chloride Carbon Dioxide Anion Gap BUN Creatinine Est GFR ( Amer) Est GFR (Non-Af Amer) Glucose Calcium Magnesium 07/29/18 07/29/18 07/30/18 10:42 10:42 04:10 Creatine Kinase 176 H CK-MB (CK-2) Troponin I 0.021 NT-Pro-B Natriuret Pep 1490 H 07/31/18 07/31/18 08/05/18 03:05 03:05 05:04 Creatine Kinase 708 H CK-MB (CK-2) 14.10 H Troponin I NT-Pro-B Natriuret Pep 3540 H Impressions: Guidance Fluoroscopy 07/29/18 12:37 IMPRESSION: Attempted Lumbar puncture under fluoroscopy. Recommend conscious sedation with anesthesia assistance. KUB X-Ray 08/01/18 10:30 IMPRESSION: NG tube is doubled back upon itself at the GE junction. Head CT 08/05/18 00:00 IMPRESSION: MILD CHRONIC CHANGES OF ATROPHY AND MICROVASCULAR ISCHEMIA. NO ACUTE PROCESS. EVIDENCE OF ACUTE STROKE: NO. Chest X-Ray 08/08/18 06:00 IMPRESSION: No significant change. Assessment and Plan - Diagnosis (1) Acute encephalopathy Is this a current diagnosis for this admission?: Yes Plan: Most probably metabolic and drug-induced due to polypharmacy. Patient is gradually showing some improvement. Will review her medication and discontinue some of them upon discharge. (2) Acute hypoxemic respiratory failure Is this a current diagnosis for this admission?: Yes Plan: It requires emergent intubation and transferred to ICU. Patient shows some improvement. Will wean her gradually and extubate her later. (3) COPD (chronic obstructive pulmonary disease) Qualifiers: Emphysema type: unspecified Is this a current diagnosis for this admission?: Yes Plan: Continue current regimen (4) Hypertension Qualifiers: Hypertension type: essential hypertension Qualified Code(s): I10 - Essential (primary) hypertension Is this a current diagnosis for this admission?: Yes Plan: Continue home medication (5) Tobacco dependence Is this a current diagnosis for this admission?: Yes Plan: When she wakes up will encourage her to quit smoking.
--- NOTE | 2018-08-08 13:39 | PDOC PROGRESS REPORT ---
Subjective Progress Note for:: 08/08/18 Subjective:: Patient sedated intubated Reason For Visit: ACUTE ENCEPHALOPATHY, R/O MENINGITIS Physical Exam Vital Signs: Temp Pulse Resp BP Pulse Ox 99.5 F 92 24 H 160/77 H 99 08/08/18 08:00 08/08/18 08:34 08/08/18 08:34 08/08/18 08:34 08/08/18 08:34 Intake & Output 08/07/18 08/08/18 08/09/18 06:59 06:59 06:59 Intake Total 1574 3997 Output Total 2125 2635 125 Balance -551 1362 -125 Weight 64.3 kg 65 kg Results Laboratory Results: 08/08/18 05:00 08/08/18 05:00 08/07/18 08/07/18 08/08/18 09:00 15:15 05:00 WBC RBC Hgb Hct MCV MCH MCHC RDW Plt Count Seg Neutrophils % Lymphocytes % Monocytes % Eosinophils % Basophils % Absolute Neutrophils Absolute Lymphocytes Absolute Monocytes Absolute Eosinophils Absolute Basophils Carbonic Acid 0.70 L HCO3/H2CO3 Ratio 26:1 ABG pH 7.52 H ABG pCO2 23.2 L ABG pO2 52.9 L ABG HCO3 18.6 L ABG O2 Saturation 91.5 L ABG Base Excess -3.2 FiO2 40% Sodium 145.8 H Potassium 3.8 Chloride 113 H Carbon Dioxide 23 Anion Gap 10 BUN 80 H Creatinine 1.54 H Est GFR ( Amer) 39 L Est GFR (Non-Af Amer) 32 L Glucose 184 H Calcium 8.5 Magnesium Urine Color YELLOW Urine Appearance CLOUDY Urine pH 5.0 Ur Specific [place] 1.017 Urine Protein 30 H Urine Glucose (UA) NEGATIVE Urine Ketones NEGATIVE Urine Blood MODERATE H Urine Nitrite NEGATIVE Ur Leukocyte Esterase NEGATIVE Urine WBC (Auto) 5 Urine RBC (Auto) 4 08/08/18 08/08/18 05:00 05:00 WBC 20.8 H RBC 2.56 L Hgb 8.3 L Hct 24.8 L MCV 97 MCH 32.3 MCHC 33.3 RDW 14.0 Plt Count 112 L Seg Neutrophils % Not Reportable Lymphocytes % Not Reportable Monocytes % Not Reportable Eosinophils % Not Reportable Basophils % Not Reportable Absolute Neutrophils Not Reportable Absolute Lymphocytes Not Reportable Absolute Monocytes Not Reportable Absolute Eosinophils Not Reportable Absolute Basophils Not Reportable Carbonic Acid HCO3/H2CO3 Ratio ABG pH ABG pCO2 ABG pO2 ABG HCO3 ABG O2 Saturation ABG Base Excess FiO2 Sodium 140.5 Potassium 3.8 Chloride 112 H Carbon Dioxide 22 Anion Gap 7 BUN 72 H Creatinine 1.33 H Est GFR ( Amer) 46 L Est GFR (Non-Af Amer) 38 L Glucose 194 H Calcium 7.9 L Magnesium 1.9 Urine Color Urine Appearance Urine pH Ur Specific [place] Urine Protein Urine Glucose (UA) Urine Ketones Urine Blood Urine Nitrite Ur Leukocyte Esterase Urine WBC (Auto) Urine RBC (Auto) 07/29/18 07/29/18 07/30/18 10:42 10:42 04:10 Creatine Kinase 176 H CK-MB (CK-2) Troponin I 0.021 NT-Pro-B Natriuret Pep 1490 H 07/31/18 07/31/18 08/05/18 03:05 03:05 05:04 Creatine Kinase 708 H CK-MB (CK-2) 14.10 H Troponin I NT-Pro-B Natriuret Pep 3540 H Impressions: Guidance Fluoroscopy 07/29/18 12:37 IMPRESSION: Attempted Lumbar puncture under fluoroscopy. Recommend conscious sedation with anesthesia assistance. KUB X-Ray 08/01/18 10:30 IMPRESSION: NG tube is doubled back upon itself at the GE junction. Head CT 08/05/18 00:00 IMPRESSION: MILD CHRONIC CHANGES OF ATROPHY AND MICROVASCULAR ISCHEMIA. NO ACUTE PROCESS. EVIDENCE OF ACUTE STROKE: NO. Chest X-Ray 08/08/18 06:00 IMPRESSION: No significant change. Assessment & Plan - Diagnosis (1) Acute and chronic respiratory failure with hypoxia Is this a current diagnosis for this admission?: Yes Plan: Intubated sedate bronchodilator therapy ABG is acceptable Unchanged (2) Acute kidney injury Is this a current diagnosis for this admission?: Yes Plan: Gentle diuresis continues to improve (3) COPD (chronic obstructive pulmonary disease) Qualifiers: Emphysema type: centrilobular Is this a current diagnosis for this admission?: Yes Plan: laba+lama (4) Pulmonary hypertension Is this a current diagnosis for this admission?: Yes Plan: Additional work-up after discharge (5) Acute encephalopathy Is this a current diagnosis for this admission?: Yes Plan: EEG results were not encouraging also concerned with increased WBC and borderline increase in temperature discussed sending the patient where they may be some active neurology participation
[2018-08-08] MEDS ORDERED: FUROSEMIDE INJ/PF 20 MG/2 ML SDV ONE (18:35)
[2018-08-08] MEDS ORDERED: FUROSEMIDE INJ/PF 40 MG/4 ML SDV ONE (18:36)
[2018-08-08] MEDS: AMINO AC/PROTEIN HYDR/WHEY PRO 11 GM/45 ML PKT NG SCH (18:43)
[2018-08-08] MEDS ORDERED: FUROSEMIDE INJ/PF 100 MG/10 ML SDV IV ONE (19:15)
[2018-08-08] MEDS: LORAZEPAM INJ 2 MG/1 ML VIAL IV PRN (19:50)
[2018-08-08] MEDS: FENTANYL CITRATE INJ/PF 100 MCG/2 ML AMPUL IV PRN ×2 (20:08→23:58)
[2018-08-09] MEDS: INSULIN LISPRO 100 UNIT/ML 3 ML VIAL SUBCUT SCH ×4 (00:04→17:37)
[2018-08-09] MEDS ORDERED: FENTANYL CITRATE INJ/PF 100 MCG/2 ML AMPUL IV PRN (00:10)
[2018-08-09] MEDS: IPRATROPIUM BROMIDE 0.02% NEB 0.5 MG/2.5 ML AMPUL NEB SCH ×4 (01:54→20:30)
[2018-08-09] MEDS: LEVALBUTEROL HCL NEB 0.63 MG/3 ML AMPUL NEB SCH ×4 (01:54→20:30)
[2018-08-09 04:55] LABS: ARTERIAL BLOOD O2 SATURATION 96.5 % (94-98); ARTERIAL BLOOD PCO2 26.7 mmHg (35-45); ARTERIAL BLOOD PH 7.51 (7.35-7.45); ARTERIAL BLOOD PO2 75.1 mmHg (80-100); ARTERIAL BLOOD TOTAL CO2 21.8 mmol/L (21-25); HEMATOCRIT 23.5 % (36.0-47.0); MEAN CORPUSCULAR HEMOGLOBIN 32.7 pg (27.0-33.4); MEAN CORPUSCULAR HGB CONC 33.5 g/dL (32.0-36.0); MEAN CORPUSCULAR VOLUME 98 fl (80-97); PLATELET COUNT 120 10^3/uL (150-450); RED CELL DISTRIBUTION WIDTH 13.8 % (11.5-14.0)
[2018-08-09 04:58] LABS: ARTERIAL BLOOD FIO2 40%
[2018-08-09 04:59] LABS: HEMOGLOBIN 7.9 g/dL (12.0-15.5)
[2018-08-09 05:14] LABS: ANION GAP 7 (5-19); BLOOD UREA NITROGEN 72 mg/dL (7-20); CALCIUM 8.1 mg/dL (8.4-10.2); CARBON DIOXIDE 24 mmol/L (22-30); CHLORIDE 109 mmol/L (98-107); GLUCOSE 161 mg/dL (75-110)
[2018-08-09 05:18] LABS: ABSOLUTE LYMPHOCYTES# (MANUAL) 1.1 10^3/uL (0.5-4.7); ABSOLUTE MONOCYTES # (MANUAL) 0.9 10^3/uL (0.1-1.4); BAND NEUTROPHILS % (MANUAL) 1 % (3-5); BASOPHILS % (MANUAL) 0 % (0-2); EOSINOPHILS % (MANUAL) 2 % (0-6); LYMPHOCYTES % (MANUAL) 6 % (13-45); MONOCYTES % (MANUAL) 5 % (3-13); SEGMENTED NEUTROPHILS % (MAN) 86 % (42-78); TOTAL CELLS COUNTED 100
[2018-08-09 05:19] LABS: HYPOCHROMASIA 1+; PLATELET COMMENT DECREASED
[2018-08-09] MEDS: LEVOTHYROXINE SODIUM 0.1 MG TABLET NG SCH (06:42)
[2018-08-09] MEDS: DILTIAZEM HCL 60 MG TABLET NG SCH ×4 (06:42→22:59)
[2018-08-09] MEDS: FENTANYL CITRATE INJ/PF 100 MCG/2 ML AMPUL IV PRN ×4 (06:43→18:45)
--- NOTE | 2018-08-09 08:45 | RADIOLOGY REPORT (SQ) ---
EXAM DESCRIPTION: CHEST SINGLE VIEW COMPLETED DATE/TIME: 08/09/2018 6:52 am REASON FOR STUDY: ett/ngt placement COMPARISON: Chest films 08/08/2018, 08/07/2018, 08/06/2018, 08/05/2018 EXAM PARAMETERS: NUMBER OF VIEWS: One view. TECHNIQUE: Single frontal radiographic view of the chest acquired. RADIATION DOSE: NA LIMITATIONS: None. FINDINGS: LUNGS AND PLEURA: No opacities, masses or pneumothorax. No pleural effusion. MEDIASTINUM AND HILAR STRUCTURES: No masses. Contour normal. HEART AND VASCULAR STRUCTURES: Heart normal in size. Normal vasculature. BONES: No acute findings. HARDWARE: Endotracheal tube tip 5 cm above the juhi. Nasogastric tube tip and side port in the sto mach. Left jugular central line tip in the superior vena cava. OTHER: No other significant finding. IMPRESSION: No focal infiltrates. Tubes and lines in good positioning. TECHNICAL DOCUMENTATION: JOB ID: [id number] [employer]- All Rights Reserved Reading location - IP/workstation name: [email or web address]
[2018-08-09] MEDS: POTASSIUM CHLORIDE 20 MEQ PACKET NG SCH ×2 (10:23→22:57)
[2018-08-09] MEDS: METOPROLOL TARTRATE 50 MG TABLET NG SCH ×2 (10:23→22:57)
[2018-08-09] MEDS: ASPIRIN 81 MG TABLET, CHEWABLE NG SCH (10:23)
[2018-08-09] MEDS: PANTOPRAZOLE SODIUM 40 MG VIAL IV SCH (10:23)
[2018-08-09] MEDS: FUROSEMIDE INJ/PF 20 MG/2 ML SDV IV SCH (10:23)
[2018-08-09] MEDS: HEPARIN SOD (PORCINE) 5,000 UNIT/ML 1 ML SYRINGE SUBCUT SCH ×2 (10:24→22:58)
--- NOTE | 2018-08-09 12:59 | PDOC PROGRESS REPORT ---
Subjective Progress Note for:: 08/09/18 Subjective:: Patient is new to me. This is a 82 years old female patient with past medical history of COPD, hypothyroidism, hypertension, upper lipidemia, peripheral arterial disease status post left femoral stenting and tobacco dependence brought by EMS for unresponsiveness and confusion. Reportedly patient has fever and acute confusional state with agitation and combativeness for which she was given Ativan, Haldol and ketamine in route to ER. On the fourth day of her admission patient become hypoxic and decompensated which requires emergent intubation and transferred to ICU. Her EEG reported as markedly abnormal EEG and consistent with diffuse cerebral dysfunction. This morning I discussed with her daughter and other family members the prognosis of the patient. Patient shows some slight improvement that she responds to verbal stimuli appropriately and she also follow commands. We will taper her oxygen and will try her to have her of ventilation. 08/13/2018: Patient remained intubated. Her O2 saturation and vital signs are within normal limits. She is on pressure support. Today she does not follow commands. Her white cell count is trending down from 20,018. Reason For Visit: ACUTE ENCEPHALOPATHY, R/O MENINGITIS Physical Exam Vital Signs: Temp Pulse Resp BP Pulse Ox 99.7 F 88 21 H 116/58 L 96 08/09/18 12:00 08/09/18 12:00 08/09/18 12:00 08/09/18 12:00 08/09/18 12:00 Intake & Output 08/08/18 08/09/18 08/10/18 06:59 06:59 06:59 Intake Total 3997 2664 Output Total 2635 4105 780 Balance 1362 -1441 -780 Weight 65 kg 63.3 kg General appearance: PRESENT: no acute distress Head exam: PRESENT: atraumatic Eye exam: PRESENT: PERRLA Mouth exam: PRESENT: dry mucosa Neck exam: ABSENT: carotid bruit, JVD, lymphadenopathy, thyromegaly Respiratory exam: PRESENT: clear to auscultation sridevi. ABSENT: rales, rhonchi, wheezes Cardiovascular exam: PRESENT: RRR. ABSENT: diastolic murmur, rubs, systolic murmur GI/Abdominal exam: PRESENT: normal bowel sounds, soft. ABSENT: distended, guarding, mass, organolmegaly, rebound, tenderness Results Laboratory Results: 08/09/18 04:40 08/09/18 04:40 08/09/18 08/09/18 08/09/18 04:40 04:40 04:40 WBC 18.0 H RBC 2.40 L Hgb 7.9 L Hct 23.5 L MCV 98 H MCH 32.7 MCHC 33.5 RDW 13.8 Plt Count 120 L Seg Neutrophils % Not Reportable Lymphocytes % Not Reportable Monocytes % Not Reportable Eosinophils % Not Reportable Basophils % Not Reportable Absolute Neutrophils Not Reportable Absolute Lymphocytes Not Reportable Absolute Monocytes Not Reportable Absolute Eosinophils Not Reportable Absolute Basophils Not Reportable Carbonic Acid 0.80 L HCO3/H2CO3 Ratio 26:1 ABG pH 7.51 H ABG pCO2 26.7 L ABG pO2 75.1 L ABG HCO3 21.0 ABG O2 Saturation 96.5 ABG Base Excess -1.0 FiO2 40% Sodium 140.0 Potassium 4.0 Chloride 109 H Carbon Dioxide 24 Anion Gap 7 BUN 72 H Creatinine 1.38 H Est GFR ( Amer) 45 L Est GFR (Non-Af Amer) 37 L Glucose 161 H Calcium 8.1 L Magnesium 1.8 08/07/18 09:00 Sputum Gram Stain - Final 08/07/18 09:00 Sputum Sputum Culture - Final REDUCED NORMAL AMI 07/29/18 07/29/18 07/30/18 10:42 10:42 04:10 Creatine Kinase 176 H CK-MB (CK-2) Troponin I 0.021 NT-Pro-B Natriuret Pep 1490 H 07/31/18 07/31/18 08/05/18 03:05 03:05 05:04 Creatine Kinase 708 H CK-MB (CK-2) 14.10 H Troponin I NT-Pro-B Natriuret Pep 3540 H Impressions: Guidance Fluoroscopy 07/29/18 12:37 IMPRESSION: Attempted Lumbar puncture under fluoroscopy. Recommend conscious sedation with anesthesia assistance. KUB X-Ray 08/01/18 10:30 IMPRESSION: NG tube is doubled back upon itself at the GE junction. Head CT 08/05/18 00:00 IMPRESSION: MILD CHRONIC CHANGES OF ATROPHY AND MICROVASCULAR ISCHEMIA. NO ACUTE PROCESS. EVIDENCE OF ACUTE STROKE: NO. Chest X-Ray 08/09/18 06:00 IMPRESSION: No focal infiltrates. Tubes and lines in good positioning. Assessment and Plan - Diagnosis (1) Acute encephalopathy Is this a current diagnosis for this admission?: Yes Plan: Most probably metabolic and drug-induced due to polypharmacy. Patient is gradually showing some improvement. Will review her medication and discontinue some of them upon discharge. (2) Acute hypoxemic respiratory failure Is this a current diagnosis for this admission?: Yes Plan: It requires emergent intubation and transferred to ICU. Patient shows some improvement. Will wean her gradually and extubate her later. (3) COPD (chronic obstructive pulmonary disease) Qualifiers: Emphysema type: unspecified Is this a current diagnosis for this admission?: Yes Plan: Continue current regimen (4) Hypertension Qualifiers: Hypertension type: essential hypertension Qualified Code(s): I10 - Essential (primary) hypertension Is this a current diagnosis for this admission?: Yes Plan: Continue home medication (5) Tobacco dependence Is this a current diagnosis for this admission?: Yes Plan: When she wakes up will encourage her to quit smoking.
[2018-08-09] MEDS: AMINO AC/PROTEIN HYDR/WHEY PRO 11 GM/45 ML PKT NG SCH (17:37)
[2018-08-09] MEDS: LORAZEPAM INJ 2 MG/1 ML VIAL IV PRN (22:05)
[2018-08-10] MEDS: IPRATROPIUM BROMIDE 0.02% NEB 0.5 MG/2.5 ML AMPUL NEB SCH ×4 (01:15→19:41)
[2018-08-10] MEDS: LEVALBUTEROL HCL NEB 0.63 MG/3 ML AMPUL NEB SCH ×4 (01:15→19:41)
[2018-08-10] MEDS: FENTANYL CITRATE INJ/PF 100 MCG/2 ML AMPUL IV PRN ×4 (01:35→16:17)
[2018-08-10 05:03] LABS: HEMATOCRIT 23.6 % (36.0-47.0); MEAN CORPUSCULAR HEMOGLOBIN 32.5 pg (27.0-33.4); MEAN CORPUSCULAR HGB CONC 33.4 g/dL (32.0-36.0); MEAN CORPUSCULAR VOLUME 97 fl (80-97); PLATELET COUNT 118 10^3/uL (150-450); RED BLOOD COUNT 2.42 10^6/uL (3.72-5.28); RED CELL DISTRIBUTION WIDTH 14.3 % (11.5-14.0); WHITE BLOOD COUNT 20.9 10^3/uL (4.0-10.5)
[2018-08-10 05:10] LABS: HEMOGLOBIN 7.9 g/dL (12.0-15.5)
[2018-08-10 05:18] LABS: ANION GAP 7 (5-19); BLOOD UREA NITROGEN 65 mg/dL (7-20); CALCIUM 8.2 mg/dL (8.4-10.2); CARBON DIOXIDE 26 mmol/L (22-30); CHLORIDE 111 mmol/L (98-107); GLUCOSE 188 mg/dL (75-110); POTASSIUM 4.2 mmol/L (3.6-5.0); SODIUM 143.9 mmol/L (137-145)
[2018-08-10 05:32] LABS: ARTERIAL BLOOD BASE EXCESS -0.4 mmol/L; ARTERIAL BLOOD H2CO3 0.82 mmol/L (1.05-1.35); ARTERIAL BLOOD HCO3 21.6 mmol/L (20-24); ARTERIAL BLOOD O2 SATURATION 93.9 % (94-98); ARTERIAL BLOOD PCO2 27.2 mmHg (35-45); ARTERIAL BLOOD PH 7.52 (7.35-7.45); ARTERIAL BLOOD PO2 60.6 mmHg (80-100); ARTERIAL BLOOD TOTAL CO2 22.4 mmol/L (21-25)
[2018-08-10 05:35] LABS: ARTERIAL BLOOD FIO2 40%
[2018-08-10] MEDS: INSULIN LISPRO 100 UNIT/ML 3 ML VIAL SUBCUT SCH ×5 (06:03→23:38)
[2018-08-10] MEDS: LORAZEPAM INJ 2 MG/1 ML VIAL IV PRN ×2 (06:16→20:09)
[2018-08-10] MEDS: DILTIAZEM HCL 60 MG TABLET NG SCH ×4 (06:17→23:38)
[2018-08-10] MEDS: LEVOTHYROXINE SODIUM 0.1 MG TABLET NG SCH (06:17)
[2018-08-10 06:58] LABS: ABSOLUTE LYMPHOCYTES# (MANUAL) 2.5 10^3/uL (0.5-4.7); ABSOLUTE MONOCYTES # (MANUAL) 0.4 10^3/uL (0.1-1.4); BASOPHILS % (MANUAL) 0 % (0-2); EOSINOPHILS % (MANUAL) 0 % (0-6); LYMPHOCYTES % (MANUAL) 12 % (13-45); MONOCYTES % (MANUAL) 2 % (3-13); SEGMENTED NEUTROPHILS % (MAN) 86 % (42-78); TOTAL CELLS COUNTED 100
[2018-08-10 06:59] LABS: HYPOCHROMASIA 1+; PLATELET COMMENT DECREASED
--- NOTE | 2018-08-10 08:13 | RADIOLOGY REPORT (SQ) ---
EXAM DESCRIPTION: CHEST SINGLE VIEW COMPLETED DATE/TIME: 08/10/2018 6:19 am REASON FOR STUDY: resp failure COMPARISON: Chest films 08/09/2018, 08/08/2018, 08/07/2018, 08/06/2018 EXAM PARAMETERS: NUMBER OF VIEWS: One view. TECHNIQUE: Single frontal radiographic view of the chest acquired. RADIATION DOSE: NA LIMITATIONS: None. FINDINGS: LUNGS AND PLEURA: Minimal airspace disease is present in the right middle lobe, atelectasi s versus pneumonia. Remainder of the lungs are hyperinflated and clear. No pleural effusion. No pneumothorax. MEDIASTINUM AND HILAR STRUCTURES: No masses. Contour normal. HEART AND VASCULAR STRUCTURES: Heart normal in size. Normal vasculature. BONES: No acute findings. HARDWARE: Endotracheal tube 5 cm above the juhi. Nasogastric tube tip and side port in the stomach . Left jugular central line tip superior vena cava OTHER: No other significant finding. IMPRESSION: Right middle lobe airspace disease TECHNICAL DOCUMENTATION: JOB ID: [id number] [employer]- All Rights Reserved Reading location - IP/workstation name: [email or web address]
[2018-08-10] MEDS: ASPIRIN 81 MG TABLET, CHEWABLE NG SCH (09:30)
[2018-08-10] MEDS: PANTOPRAZOLE SODIUM 40 MG VIAL IV SCH (09:30)
[2018-08-10] MEDS: POTASSIUM CHLORIDE 20 MEQ PACKET NG SCH ×2 (09:30→21:39)
[2018-08-10] MEDS: METOPROLOL TARTRATE 50 MG TABLET NG SCH ×2 (09:31→21:39)
[2018-08-10] MEDS: FUROSEMIDE INJ/PF 20 MG/2 ML SDV IV SCH (09:31)
[2018-08-10] MEDS: HEPARIN SOD (PORCINE) 5,000 UNIT/ML 1 ML SYRINGE SUBCUT SCH ×2 (09:31→21:39)
[2018-08-10] MEDS ORDERED: VANCOMYCIN HCL 0 MG in DEXTROSE 5%-WATER 250 ML IV NR (10:15)
[2018-08-10] MEDS ORDERED: PIPERACILLIN SODIUM/TAZOBACTAM 3.375 GM in NORMAL SALINE 100 ML IV SCH (12:00)
--- NOTE | 2018-08-10 14:26 | PDOC PROGRESS REPORT ---
Subjective Progress Note for:: 08/10/18 Subjective:: Patient is new to me. This is a 82 years old female patient with past medical history of COPD, hypothyroidism, hypertension, upper lipidemia, peripheral arterial disease status post left femoral stenting and tobacco dependence brought by EMS for unresponsiveness and confusion. Reportedly patient has fever and acute confusional state with agitation and combativeness for which she was given Ativan, Haldol and ketamine in route to ER. On the fourth day of her admission patient become hypoxic and decompensated which requires emergent intubation and transferred to ICU. Her EEG reported as markedly abnormal EEG and consistent with diffuse cerebral dysfunction. This morning I discussed with her daughter and other family members the prognosis of the patient. Patient shows some slight improvement that she responds to verbal stimuli appropriately and she also follow commands. We will taper her oxygen and will try her to have her of ventilation. 08/09/2018: Patient remained intubated. Her O2 saturation and vital signs are within normal limits. She is on pressure support. Today she does not follow commands. Her white cell count is trending down from 20,018. 08/10/18: Patient remains intubated. Patient has intermittent fever low-grade and leukocytosis. Family members are inclined to comfort care. Reason For Visit: ACUTE ENCEPHALOPATHY, R/O MENINGITIS Physical Exam Vital Signs: Temp Pulse Resp BP Pulse Ox 100.6 F H 95 26 H 118/58 L 90 L 08/10/18 12:00 08/10/18 12:00 08/10/18 12:00 08/10/18 12:00 08/10/18 12:00 Intake & Output 08/09/18 08/10/18 08/11/18 06:59 06:59 06:59 Intake Total 2664 1594 Output Total 1716 8736 920 [facility] -1441 -641 -920 Weight 63.3 kg 64.9 kg General appearance: PRESENT: no acute distress Head exam: PRESENT: atraumatic Respiratory exam: PRESENT: clear to auscultation sridevi. ABSENT: rales, rhonchi, wheezes Cardiovascular exam: PRESENT: RRR. ABSENT: diastolic murmur, rubs, systolic murmur GI/Abdominal exam: PRESENT: normal bowel sounds, soft. ABSENT: distended, guarding, mass, organolmegaly, rebound, tenderness Results Laboratory Results: 08/10/18 04:40 08/10/18 04:40 08/10/18 08/10/18 08/10/18 04:40 04:40 05:20 WBC 20.9 H RBC 2.42 L Hgb 7.9 L Hct 23.6 L MCV 97 MCH 32.5 MCHC 33.4 RDW 14.3 H Plt Count 118 L Seg Neutrophils % Not Reportable Lymphocytes % Not Reportable Monocytes % Not Reportable Eosinophils % Not Reportable Basophils % Not Reportable Absolute Neutrophils Not Reportable Absolute Lymphocytes Not Reportable Absolute Monocytes Not Reportable Absolute Eosinophils Not Reportable Absolute Basophils Not Reportable Carbonic Acid 0.82 L HCO3/H2CO3 Ratio 26:1 ABG pH 7.52 H ABG pCO2 27.2 L ABG pO2 60.6 L ABG HCO3 21.6 ABG O2 Saturation 93.9 L ABG Base Excess -0.4 FiO2 40% Sodium 143.9 Potassium 4.2 Chloride 111 H Carbon Dioxide 26 Anion Gap 7 BUN 65 H Creatinine 1.32 H Est GFR ( Amer) 47 L Est GFR (Non-Af Amer) 39 L Glucose 188 H Calcium 8.2 L Magnesium 1.9 07/29/18 07/29/18 07/30/18 10:42 10:42 04:10 Creatine Kinase 176 H CK-MB (CK-2) Troponin I 0.021 NT-Pro-B Natriuret Pep 1490 H 07/31/18 07/31/18 08/05/18 03:05 03:05 05:04 Creatine Kinase 708 H CK-MB (CK-2) 14.10 H Troponin I NT-Pro-B Natriuret Pep 3540 H Impressions: Guidance Fluoroscopy 07/29/18 12:37 IMPRESSION: Attempted Lumbar puncture under fluoroscopy. Recommend conscious sedation with anesthesia assistance. KUB X-Ray 08/01/18 10:30 IMPRESSION: NG tube is doubled back upon itself at the GE junction. Head CT 08/05/18 00:00 IMPRESSION: MILD CHRONIC CHANGES OF ATROPHY AND MICROVASCULAR ISCHEMIA. NO ACUTE PROCESS. EVIDENCE OF ACUTE STROKE: NO. Chest X-Ray 08/10/18 06:00 IMPRESSION: Right middle lobe airspace disease Assessment and Plan - Diagnosis (1) Acute encephalopathy Is this a current diagnosis for this admission?: Yes Plan: No change (2) Acute hypoxemic respiratory failure Is this a current diagnosis for this admission?: Yes Plan: It requires emergent intubation and transferred to ICU. Patient shows some improvement. Will wean her gradually and extubate her later. (3) COPD (chronic obstructive pulmonary disease) Qualifiers: Emphysema type: unspecified Is this a current diagnosis for this admission?: Yes Plan: Continue current regimen (4) Hypertension Qualifiers: Hypertension type: essential hypertension Qualified Code(s): I10 - Essential (primary) hypertension Is this a current diagnosis for this admission?: Yes Plan: Continue home medication (5) Tobacco dependence Is this a current diagnosis for this admission?: Yes Plan: When she wakes up will encourage her to quit smoking.
[2018-08-10] MEDS: PIPERACILLIN SODIUM/TAZOBACTAM 2.25 GM in NORMAL SALINE 50 ML IV SCH ×3 (15:29→23:38)
[2018-08-10] MEDS: VANCOMYCIN HCL 750 MG in DEXTROSE 5%-WATER 250 ML IV SCH (16:21)
[2018-08-10] MEDS: AMINO AC/PROTEIN HYDR/WHEY PRO 11 GM/45 ML PKT NG SCH (18:12)
[2018-08-10] MEDS: ACETAMINOPHEN 650 MG SUPP.RECT PR PRN (18:49)
[2018-08-10] MEDS: ACETAMINOPHEN SOLN 325 MG/10.15 ML UDCUP NG PRN (23:39)
[2018-08-11] MEDS: IPRATROPIUM BROMIDE 0.02% NEB 0.5 MG/2.5 ML AMPUL NEB SCH ×4 (02:13→20:46)
[2018-08-11] MEDS: LEVALBUTEROL HCL NEB 0.63 MG/3 ML AMPUL NEB SCH ×4 (02:13→20:46)
[2018-08-11 03:57] LABS: ARTERIAL BLOOD BASE EXCESS -0.5 mmol/L; ARTERIAL BLOOD H2CO3 0.84 mmol/L (1.05-1.35); ARTERIAL BLOOD HCO3 22.1 mmol/L (20-24); ARTERIAL BLOOD O2 SATURATION 95.5 % (94-98); ARTERIAL BLOOD PCO2 27.8 mmHg (35-45); ARTERIAL BLOOD PH 7.52 (7.35-7.45); ARTERIAL BLOOD PO2 68.1 mmHg (80-100); ARTERIAL BLOOD TOTAL CO2 22.9 mmol/L (21-25)
[2018-08-11 03:58] LABS: ARTERIAL BLOOD FIO2 30%
[2018-08-11 04:00] LABS: HEMATOCRIT 21.9 % (36.0-47.0); MEAN CORPUSCULAR HEMOGLOBIN 33.3 pg (27.0-33.4); MEAN CORPUSCULAR HGB CONC 34.3 g/dL (32.0-36.0); MEAN CORPUSCULAR VOLUME 97 fl (80-97); PLATELET COUNT 114 10^3/uL (150-450); RED BLOOD COUNT 2.26 10^6/uL (3.72-5.28); RED CELL DISTRIBUTION WIDTH 13.9 % (11.5-14.0); WHITE BLOOD COUNT 22.4 10^3/uL (4.0-10.5)
[2018-08-11 04:03] LABS: HEMOGLOBIN 7.5 g/dL (12.0-15.5)
[2018-08-11 04:21] LABS: ANION GAP 7 (5-19); BLOOD UREA NITROGEN 61 mg/dL (7-20); CARBON DIOXIDE 26 mmol/L (22-30); CHLORIDE 112 mmol/L (98-107); GLUCOSE 195 mg/dL (75-110); POTASSIUM 3.7 mmol/L (3.6-5.0); SODIUM 144.5 mmol/L (137-145)
[2018-08-11] MEDS: INSULIN LISPRO 100 UNIT/ML 3 ML VIAL SUBCUT SCH ×5 (05:06→23:52)
[2018-08-11] MEDS: PIPERACILLIN SODIUM/TAZOBACTAM 2.25 GM in NORMAL SALINE 50 ML IV SCH ×4 (05:06→23:52)
[2018-08-11] MEDS: LORAZEPAM INJ 2 MG/1 ML VIAL IV PRN ×4 (05:07→23:53)
[2018-08-11] MEDS: DILTIAZEM HCL 60 MG TABLET NG SCH ×5 (05:07→23:53)
[2018-08-11] MEDS: LEVOTHYROXINE SODIUM 0.1 MG TABLET NG SCH (05:07)
[2018-08-11 05:09] LABS: ABSOLUTE LYMPHOCYTES# (MANUAL) 0.2 10^3/uL (0.5-4.7); ABSOLUTE MONOCYTES # (MANUAL) 0.2 10^3/uL (0.1-1.4); BASOPHILS % (MANUAL) 0 % (0-2); EOSINOPHILS % (MANUAL) 0 % (0-6); HYPOCHROMASIA 1+; LYMPHOCYTES % (MANUAL) 1 % (13-45); MONOCYTES % (MANUAL) 1 % (3-13); SEGMENTED NEUTROPHILS % (MAN) 98 % (42-78); TOTAL CELLS COUNTED 100
[2018-08-11 05:10] LABS: PLATELET COMMENT DECREASED
--- NOTE | 2018-08-11 07:26 | RADIOLOGY REPORT (SQ) ---
EXAM DESCRIPTION: XR CHEST 1 VIEW COMPLETED DATE/TME: 08/11/2018 06:00 CLINICAL HISTORY: 82 years Female, resp failure COMPARISON: One day prior. NUMBER OF VIEWS/TECHNIQUE: 1/AP FINDINGS: Prominent interstitium, and normal cardiac silhouette. Adequate appearing enteric tube partially obscured. Adequate appearing left jugular central line. Atherosclerotic vascular disease. Adequate appearing endotracheal tube. No pneumothorax. Stable bony thorax. IMPRESSION: Prominent interstitium, and normal cardiac silhouette. Interval improvement.
[2018-08-11] MEDS: FENTANYL CITRATE INJ/PF 100 MCG/2 ML AMPUL IV PRN ×3 (07:58→18:06)
[2018-08-11] MEDS: METOPROLOL TARTRATE 50 MG TABLET NG SCH ×2 (09:13→21:16)
[2018-08-11] MEDS: POTASSIUM CHLORIDE 20 MEQ PACKET NG SCH ×2 (09:14→21:16)
[2018-08-11] MEDS: HEPARIN SOD (PORCINE) 5,000 UNIT/ML 1 ML SYRINGE SUBCUT SCH ×2 (09:14→21:17)
[2018-08-11] MEDS: FUROSEMIDE INJ/PF 20 MG/2 ML SDV IV SCH (09:14)
[2018-08-11] MEDS: ASPIRIN 81 MG TABLET, CHEWABLE NG SCH (09:14)
[2018-08-11] MEDS: PANTOPRAZOLE SODIUM 40 MG VIAL IV SCH (09:14)
[2018-08-11] MEDS: NORMAL SALINE 1000 ML 1,000 ML IV PRN ×2 (09:22→18:07)
--- NOTE | 2018-08-11 12:25 | PDOC PROGRESS REPORT ---
Subjective Progress Note for:: 08/11/18 Subjective:: Patient is new to me. This is a 82 years old female patient with past medical history of COPD, hypothyroidism, hypertension, upper lipidemia, peripheral arterial disease status post left femoral stenting and tobacco dependence brought by EMS for unresponsiveness and confusion. Reportedly patient has fever and acute confusional state with agitation and combativeness for which she was given Ativan, Haldol and ketamine in route to ER. On the fourth day of her admission patient become hypoxic and decompensated which requires emergent intubation and transferred to ICU. Her EEG reported as markedly abnormal EEG and consistent with diffuse cerebral dysfunction. This morning I discussed with her daughter and other family members the prognosis of the patient. Patient shows some slight improvement that she responds to verbal stimuli appropriately and she also follow commands. We will taper her oxygen and will try her to have her of ventilation. 08/09/2018: Patient remained intubated. Her O2 saturation and vital signs are within normal limits. She is on pressure support. Today she does not follow commands. Her white cell count is trending down from 20,018. 08/10/18: Patient remains intubated. Patient has intermittent fever low-grade and leukocytosis. Family members are inclined to comfort care. 08/11/2018: No significant change overnight. Patient remained intubated. This morning I discussed with her daughter she wanted to be in comfort care but her brothers suggested they want to wait for her sister to come on Tuesday and they will decide. Reason For Visit: ACUTE ENCEPHALOPATHY, R/O MENINGITIS Physical Exam Vital Signs: Temp Pulse Resp BP Pulse Ox 99.1 F 99 27 H 114/62 94 08/11/18 10:00 08/11/18 10:00 08/11/18 10:00 08/11/18 10:00 08/11/18 11:50 Intake & Output 08/10/18 08/11/18 08/12/18 06:59 06:59 06:59 Intake Total 1597 1462 Output Total 0299 9158 90 Balance -641 -823 -90 Weight 64.9 kg 62.2 kg Results Laboratory Results: 08/11/18 03:44 08/11/18 03:44 08/11/18 08/11/18 08/11/18 03:44 03:44 03:44 WBC 22.4 H RBC 2.26 L Hgb 7.5 L Hct 21.9 L MCV 97 MCH 33.3 MCHC 34.3 RDW 13.9 Plt Count 114 L Seg Neutrophils % Not Reportable Lymphocytes % Not Reportable Monocytes % Not Reportable Eosinophils % Not Reportable Basophils % Not Reportable Absolute Neutrophils Not Reportable Absolute Lymphocytes Not Reportable Absolute Monocytes Not Reportable Absolute Eosinophils Not Reportable Absolute Basophils Not Reportable Carbonic Acid 0.84 L HCO3/H2CO3 Ratio 26:1 ABG pH 7.52 H ABG pCO2 27.8 L ABG pO2 68.1 L ABG HCO3 22.1 ABG O2 Saturation 95.5 ABG Base Excess -0.5 FiO2 30% Sodium 144.5 Potassium 3.7 Chloride 112 H Carbon Dioxide 26 Anion Gap 7 BUN 61 H Creatinine 1.55 H Est GFR ( Amer) 39 L Est GFR (Non-Af Amer) 32 L Glucose 195 H Calcium 8.0 L Magnesium 2.0 07/29/18 07/29/18 07/30/18 10:42 10:42 04:10 Creatine Kinase 176 H CK-MB (CK-2) Troponin I 0.021 NT-Pro-B Natriuret Pep 1490 H 07/31/18 07/31/18 08/05/18 03:05 03:05 05:04 Creatine Kinase 708 H CK-MB (CK-2) 14.10 H Troponin I NT-Pro-B Natriuret Pep 3540 H Impressions: Guidance Fluoroscopy 07/29/18 12:37 IMPRESSION: Attempted Lumbar puncture under fluoroscopy. Recommend conscious sedation with anesthesia assistance. KUB X-Ray 08/01/18 10:30 IMPRESSION: NG tube is doubled back upon itself at the GE junction. Head CT 08/05/18 00:00 IMPRESSION: MILD CHRONIC CHANGES OF ATROPHY AND MICROVASCULAR ISCHEMIA. NO ACUTE PROCESS. EVIDENCE OF ACUTE STROKE: NO. Chest X-Ray 08/11/18 06:00 IMPRESSION: Prominent interstitium, and normal cardiac silhouette. Interval improvement. Assessment and Plan - Diagnosis (1) Acute encephalopathy Is this a current diagnosis for this admission?: Yes Plan: No change (2) Acute hypoxemic respiratory failure Is this a current diagnosis for this admission?: Yes Plan: It requires emergent intubation and transferred to ICU. Patient shows some improvement. Will wean her gradually and extubate her later. (3) COPD (chronic obstructive pulmonary disease) Qualifiers: Emphysema type: unspecified Is this a current diagnosis for this admission?: Yes Plan: Continue current regimen (4) Hypertension Qualifiers: Hypertension type: essential hypertension Qualified Code(s): I10 - Esse ntial (primary) hypertension Is this a current diagnosis for this admission?: Yes Plan: Continue home medication (5) Tobacco dependence Is this a current diagnosis for this admission?: Yes Plan: When she wakes up will encourage her to quit smoking.
[2018-08-11] MEDS: VANCOMYCIN HCL 750 MG in DEXTROSE 5%-WATER 250 ML IV SCH (14:47)
[2018-08-11] MEDS: AMINO AC/PROTEIN HYDR/WHEY PRO 11 GM/45 ML PKT NG SCH ×2 (17:50→18:07)
[2018-08-11] MEDS: ACETAMINOPHEN SOLN 325 MG/10.15 ML UDCUP NG PRN (21:20)
[2018-08-12] MEDS: IPRATROPIUM BROMIDE 0.02% NEB 0.5 MG/2.5 ML AMPUL NEB SCH ×2 (02:29→07:57)
[2018-08-12] MEDS: LEVALBUTEROL HCL NEB 0.63 MG/3 ML AMPUL NEB SCH ×2 (02:29→07:57)
[2018-08-12] MEDS: FENTANYL CITRATE INJ/PF 100 MCG/2 ML AMPUL IV PRN ×3 (02:46→16:56)
[2018-08-12] MEDS: NORMAL SALINE 1000 ML 1,000 ML IV PRN (02:47)
[2018-08-12 04:01] LABS: HEMATOCRIT 19.3 % (36.0-47.0); MEAN CORPUSCULAR HEMOGLOBIN 32.7 pg (27.0-33.4); MEAN CORPUSCULAR HGB CONC 33.3 g/dL (32.0-36.0); MEAN CORPUSCULAR VOLUME 98 fl (80-97); PLATELET COUNT 115 10^3/uL (150-450); RED BLOOD COUNT 1.97 10^6/uL (3.72-5.28); WHITE BLOOD COUNT 14.9 10^3/uL (4.0-10.5)
[2018-08-12 04:04] LABS: HEMOGLOBIN 6.4 g/dL (12.0-15.5)
[2018-08-12 04:19] LABS: ANION GAP 7 (5-19); BLOOD UREA NITROGEN 60 mg/dL (7-20); CALCIUM 7.7 mg/dL (8.4-10.2); CARBON DIOXIDE 24 mmol/L (22-30); CHLORIDE 114 mmol/L (98-107); GLUCOSE 162 mg/dL (75-110); POTASSIUM 3.8 mmol/L (3.6-5.0); SODIUM 144.8 mmol/L (137-145)
[2018-08-12 04:29] LABS: ABSOLUTE LYMPHOCYTES# (MANUAL) 0.6 10^3/uL (0.5-4.7); ABSOLUTE MONOCYTES # (MANUAL) 0.3 10^3/uL (0.1-1.4); BASOPHILS % (MANUAL) 1 % (0-2); EOSINOPHILS % (MANUAL) 0 % (0-6); LYMPHOCYTES % (MANUAL) 4 % (13-45); MONOCYTES % (MANUAL) 2 % (3-13); SEGMENTED NEUTROPHILS % (MAN) 93 % (42-78); TOTAL CELLS COUNTED 100
[2018-08-12 04:31] LABS: OVALOCYTES SLIGHT; TOXIC GRANULATION SLIGHT
[2018-08-12 04:32] LABS: PLATELET COMMENT ADEQUATE
[2018-08-12] MEDS: PIPERACILLIN SODIUM/TAZOBACTAM 2.25 GM in NORMAL SALINE 50 ML IV SCH ×2 (05:26→13:21)
[2018-08-12] MEDS: LEVOTHYROXINE SODIUM 0.1 MG TABLET NG SCH (05:26)
[2018-08-12] MEDS: DILTIAZEM HCL 60 MG TABLET NG SCH ×2 (05:26→13:20)
[2018-08-12] MEDS: INSULIN LISPRO 100 UNIT/ML 3 ML VIAL SUBCUT SCH ×2 (05:27→13:21)
[2018-08-12] MEDS: PROPOFOL 1,000 MG/100 ML INFUS..BTL IV PRN (07:28)
[2018-08-12] MEDS: ASPIRIN 81 MG TABLET, CHEWABLE NG SCH (09:23)
[2018-08-12] MEDS: POTASSIUM CHLORIDE 20 MEQ PACKET NG SCH (09:24)
[2018-08-12] MEDS: PANTOPRAZOLE SODIUM 40 MG VIAL IV SCH (09:24)
[2018-08-12] MEDS: HEPARIN SOD (PORCINE) 5,000 UNIT/ML 1 ML SYRINGE SUBCUT SCH (09:24)
[2018-08-12] MEDS: METOPROLOL TARTRATE 50 MG TABLET NG SCH (09:24)
[2018-08-12] MEDS ORDERED: MIDAZOLAM HCL 50 MG/100 ML RTUINJ ONE (12:14)
--- NOTE | 2018-08-12 12:22 | ADVANCED CARE ---
Resuscitation Status: Full Code Discussion: Dr. Hanson and myself have a long discussion with patient's daughter and son including other family members regarding the poor prognosis of the patient. First they decided that they do not want any aggressive measures and make her DNR and later proceeded to make her comfort care only. Care Planning Goals: Comfort care
--- NOTE | 2018-08-12 12:43 | PDOC PROGRESS REPORT ---
Subjective Progress Note for:: 08/12/18 Subjective:: Patient is new to me. This is a 82 years old female patient with past medical history of COPD, hypothyroidism, hypertension, upper lipidemia, peripheral arterial disease status post left femoral stenting and tobacco dependence brought by EMS for unresponsiveness and confusion. Reportedly patient has fever and acute confusional state with agitation and combativeness for which she was given Ativan, Haldol and ketamine in route to ER. On the fourth day of her admission patient become hypoxic and decompensated which requires emergent intubation and transferred to ICU. Her EEG reported as markedly abnormal EEG and consistent with diffuse cerebral dysfunction. This morning I discussed with her daughter and other family members the prognosis of the patient. Patient shows some slight improvement that she responds to verbal stimuli appropriately and she also follow commands. We will taper her oxygen and will try her to have her of ventilation. 08/09/2018: Patient remained intubated. Her O2 saturation and vital signs are within normal limits. She is on pressure support. Today she does not follow commands. Her white cell count is trending down from 20,018. 08/10/18: Patient remains intubated. Patient has intermittent fever low-grade and leukocytosis. Family members are inclined to comfort care. 08/11/2018: No significant change overnight. Patient remained intubated. This morning I discussed with her daughter she wanted to be in comfort care but her brothers suggested they want to wait for her sister to come on Tuesday and they will decide. 08/12/2018: The POA, makes the patient comfort care only. Reason For Visit: ACUTE ENCEPHALOPATHY, R/O MENINGITIS Physical Exam Vital Signs: Temp Pulse Resp BP Pulse Ox 98.8 F 96 23 H 132/56 H 98 08/12/18 10:01 08/12/18 10:00 08/12/18 10:01 08/12/18 10:00 08/12/18 10:01 Intake & Output 08/11/18 08/12/18 08/13/18 06:59 06:59 06:59 Intake Total 1912 3843 960 Output Total 5934 0335 260 Balance -823 3737 700 Weight 62.2 kg 63.7 kg Results Laboratory Results: 08/12/18 03:53 08/12/18 03:53 08/12/18 08/12/18 08/12/18 03:53 03:53 03:53 WBC 14.9 H RBC 1.97 L Hgb 6.4 L Hct 19.3 L MCV 98 H MCH 32.7 MCHC 33.3 RDW 14.0 Plt Count 115 L Seg Neutrophils % Not Reportable Lymphocytes % Not Reportable Monocytes % Not Reportable Eosinophils % Not Reportable Basophils % Not Reportable Absolute Neutrophils Not Reportable Absolute Lymphocytes Not Reportable Absolute Monocytes Not Reportable Absolute Eosinophils Not Reportable Absolute Basophils Not Reportable Sodium 144.8 Potassium 3.8 Chloride 114 H Carbon Dioxide 24 Anion Gap 7 BUN 60 H Creatinine 1.69 H Est GFR ( Amer) 35 L Est GFR (Non-Af Amer) 29 L Glucose 162 H Calcium 7.7 L Magnesium 1.9 Lipase 59.2 08/07/18 10:15 Blood Blood Culture - Final NO GROWTH IN 5 DAYS 08/07/18 10:10 Blood Blood Culture - Final NO GROWTH IN 5 DAYS 07/29/18 07/29/18 07/30/18 10:42 10:42 04:10 Creatine Kinase 176 H CK-MB (CK-2) Troponin I 0.021 NT-Pro-B Natriuret Pep 1490 H 07/31/18 07/31/18 08/05/18 03:05 03:05 05:04 Creatine Kinase 708 H CK-MB (CK-2) 14.10 H Troponin I NT-Pro-B Natriuret Pep 3540 H Impressions: Guidance Fluoroscopy 07/29/18 12:37 IMPRESSION: Attempted Lumbar puncture under fluoroscopy. Recommend conscious sedation with anesthesia assistance. KUB X-Ray 08/01/18 10:30 IMPRESSION: NG tube is doubled back upon itself at the GE junction. Head CT 08/05/18 00:00 IMPRESSION: MILD CHRONIC CHANGES OF ATROPHY AND MICROVASCULAR ISCHEMIA. NO ACUTE PROCESS. EVIDENCE OF ACUTE STROKE: NO. Chest X-Ray 08/11/18 06:00 IMPRESSION: Prominent interstitium, and normal cardiac silhouette. Interval improvement. Assessment and Plan - Diagnosis (1) Acute encephalopathy Is this a current diagnosis for this admission?: Yes Plan: Comfort care (2) Acute hypoxemic respiratory failure Is this a current diagnosis for this admission?: Yes Plan: Comfort care (3) COPD (chronic obstructive pulmonary disease) Qualifiers: Emphysema type: unspecified Is this a current diagnosis for this admission?: Yes Plan: Comfort care (4) Hypertension Qualifiers: Hypertension type: essential hypertension Qualified Code(s): I10 - Essential (primary) hypertension Is this a current diagnosis for this admission?: Yes Plan: Comfort care (5) Tobacco dependence Is this a current diagnosis for this admission?: Yes Plan: Comfort care
[2018-08-12] MEDS: MIDAZOLAM HCL 50 MG/100 ML RTUINJ IV PRN ×2 (12:45→21:00)
[2018-08-12] MEDS: MORPHINE SULFATE 60 MG/60 ML RTUINJ IV PRN (12:45)
[2018-08-12 13:31] VITALS: BP 128/61
[2018-08-12] MEDS ORDERED: VANCOMYCIN HCL 500 MG in DEXTROSE 5%-WATER 100 ML IV SCH (14:00)
[2018-08-12] MEDS ORDERED: SCOPOLAMINE HYDROBROMIDE 1.5 MG PATCH.TD72 TD ONE (18:06)
[2018-08-13] MEDS: FENTANYL CITRATE INJ/PF 100 MCG/2 ML AMPUL IV PRN ×7 (02:26→21:34)
[2018-08-13] MEDS: MIDAZOLAM HCL 50 MG/100 ML RTUINJ IV PRN ×3 (06:17→19:15)
[2018-08-13] MEDS: MORPHINE SULFATE 60 MG/60 ML RTUINJ IV PRN ×3 (08:11→21:34)
--- NOTE | 2018-08-13 12:34 | PDOC PROGRESS REPORT ---
Subjective Progress Note for:: 08/13/18 Subjective:: Patient is new to me. This is a 82 years old female patient with past medical history of COPD, hypothyroidism, hypertension, upper lipidemia, peripheral arterial disease status post left femoral stenting and tobacco dependence brought by EMS for unresponsiveness and confusion. Reportedly patient has fever and acute confusional state with agitation and combativeness for which she was given Ativan, Haldol and ketamine in route to ER. On the fourth day of her admission patient become hypoxic and decompensated which requires emergent intubation and transferred to ICU. Her EEG reported as markedly abnormal EEG and consistent with diffuse cerebral dysfunction. This morning I discussed with her daughter and other family members the prognosis of the patient. Patient shows some slight improvement that she responds to verbal stimuli appropriately and she also follow commands. We will taper her oxygen and will try her to have her of ventilation. 08/09/2018: Patient remained intubated. Her O2 saturation and vital signs are within normal limits. She is on pressure support. Today she does not follow commands. Her white cell count is trending down from 20,018. 08/10/18: Patient remains intubated. Patient has intermittent fever low-grade and leukocytosis. Family members are inclined to comfort care. 08/11/2018: No significant change overnight. Patient remained intubated. This morning I discussed with her daughter she wanted to be in comfort care but her brothers suggested they want to wait for her sister to come on Tuesday and they will decide. 08/12/2018: The POA, makes the patient comfort care only. 08/13/2018: No new development. Reason For Visit: ACUTE ENCEPHALOPATHY, R/O MENINGITIS Physical Exam Vital Signs: Temp Pulse Resp BP Pulse Ox 100.0 F 96 8 L 128/61 H 97 08/13/18 10:00 08/12/18 10:00 08/13/18 10:00 08/12/18 12:00 08/12/18 12:45 Intake & Output 08/12/18 08/13/18 08/14/18 06:59 06:59 06:59 Intake Total 3843 1212 75 Output Total 3731 860 Balance 2210 352 75 Weight 63.7 kg 63.7 kg Results Laboratory Results: 08/12/18 03:53 08/12/18 03:53 08/07/18 10:15 Blood Blood Culture - Final NO GROWTH IN 5 DAYS 08/07/18 10:10 Blood Blood Culture - Final NO GROWTH IN 5 DAYS 07/29/18 07/29/18 07/30/18 10:42 10:42 04:10 Creatine Kinase 176 H CK-MB (CK-2) Troponin I 0.021 NT-Pro-B Natriuret Pep 1490 H 07/31/18 07/31/18 08/05/18 03:05 03:05 05:04 Creatine Kinase 708 H CK-MB (CK-2) 14.10 H Troponin I NT-Pro-B Natriuret Pep 3540 H Impressions: Guidance Fluoroscopy 07/29/18 12:37 IMPRESSION: Attempted Lumbar puncture under fluoroscopy. Recommend conscious sedation with anesthesia assistance. KUB X-Ray 08/01/18 10:30 IMPRESSION: NG tube is doubled back upon itself at the GE junction. Head CT 08/05/18 00:00 IMPRESSION: MILD CHRONIC CHANGES OF ATROPHY AND MICROVASCULAR ISCHEMIA. NO ACUTE PROCESS. EVIDENCE OF ACUTE STROKE: NO. Chest X-Ray 08/11/18 06:00 IMPRESSION: Prominent interstitium, and normal cardiac silhouette. Interval improvement. Assessment and Plan - Diagnosis (1) Acute encephalopathy Is this a current diagnosis for this admission?: Yes Plan: Comfort care (2) Acute hypoxemic respiratory failure Is this a current diagnosis for this admission?: Yes Plan: Comfort care (3) COPD (chronic obstructive pulmonary disease) Qualifiers: Emphysema type: unspecified Is this a current diagnosis for this admission?: Yes Plan: Comfort care (4) Hypertension Qualifiers: Hypertension type: essential hypertension Qualified Code(s): I10 - Essential (primary) hypertension Is this a current diagnosis for this admission?: Yes Plan: Comfort care (5) Tobacco dependence Is this a current diagnosis for this admission?: Yes Plan: Comfort care
[2018-08-14] MEDS: MIDAZOLAM HCL 50 MG/100 ML RTUINJ IV PRN ×3 (00:20→10:27)
[2018-08-14] MEDS: FENTANYL CITRATE INJ/PF 100 MCG/2 ML AMPUL IV PRN ×2 (05:27→08:51)
[2018-08-14] MEDS: MORPHINE SULFATE 60 MG/60 ML RTUINJ IV PRN (09:01)
--- NOTE | 2018-08-14 13:00 | Death Summary ---
Summary Date : 08/14/18 Time of :: 12:39 - Final Diagnosis (1) Acute encephalopathy Is this a current diagnosis for this admission?: Yes (2) Acute hypoxemic respiratory failure Is this a current diagnosis for this admission?: Yes (3) COPD (chronic obstructive pulmonary disease) Is this a current diagnosis for this admission?: Yes (4) Hypertension Is this a current diagnosis for this admission?: Yes (5) Tobacco dependence Is this a current diagnosis for this admission?: Yes Hospital Course:: Patient is new to me. This is a 82 years old female patient with past medical history of COPD, hypothyroidism, hypertension, upper lipidemia, periph eral arterial disease status post left femoral stenting and tobacco dependence brought by EMS for unresponsiveness and confusion. Reportedly patient has fever and acute confusional state with agitation and combativeness for which she was given Ativan, Haldol and ketamine in route to ER. On the fourth day of her admission patient become hypoxic and decompensated which requires emergent intubation and transferred to ICU. Her EEG reported as markedly abnormal EEG and consistent with diffuse cerebral dysfunction. This morning I discussed with her daughter and other family members the prognosis of the patient. Patient shows some slight improvement that she responds to verbal stimuli appropriately and she also follow commands. We will taper her oxygen and will try her to have her of ventilation. 08/09/2018: Patient remained intubated. Her O2 saturation and vital signs are within normal limits. She is on pressure support. Today she does not follow commands. Her white cell count is trending down from 20,018. 08/10/18: Patient remains intubated. Patient has intermittent fever low-grade and leukocytosis. Family members are inclined to comfort care. 08/11/2018: No significant change overnight. Patient remained intubated. This morning I discussed with her daughter she wanted to be in comfort care but her brothers suggested they want to wait for her sister to come on Tuesday and they will decide. 08/12/2018: The POA, makes the patient comfort care only. 08/14/2018: Patient is being managed as a case of comfort care accordingly. patient this afternoon at 12:39
== END 2018-08-14 12:39 | disposition left against medical advice (07) | DRG 91 ==
LOC: ER 10:33 → EH 14:04 → ICU 18:03
PROVIDERS: ADMIT Internal Medicine; ATTEND Internal Medicine
PROC: 02HV33Z Insertion of Infusion Device into Superior Vena Cava, Percutaneous Approach (ICD-10-PCS; principal; 2018-07-30)
PROC: 009U3ZX Drainage of Spinal Canal, Percutaneous Approach, Diagnostic (ICD-10-PCS; 2018-07-30)
PROC: 0BH17EZ Insertion of Endotracheal Airway into Trachea, Via Natural or Artificial Opening (ICD-10-PCS; 2018-08-02)
PROC: 5A1945Z Respiratory Ventilation, 24-96 Consecutive Hours (ICD-10-PCS; 2018-08-02)
DX: G92 Toxic encephalopathy (principal); J18.1 Lobar pneumonia, unspecified organism; I50.31 Acute diastolic (congestive) heart failure; Z66 Do not resuscitate; Z51.5 Encounter for palliative care; J96.21 Acute and chronic respiratory failure with hypoxia; N17.9 Acute kidney failure, unspecified; E87.0 Hyperosmolality and hypernatremia; E78.5 Hyperlipidemia, unspecified; E03.9 Hypothyroidism, unspecified; F32.9 Major depressive disorder, single episode, unspecified; F17.200 Nicotine dependence, unspecified, uncomplicated; I70.202 Unspecified atherosclerosis of native arteries of extremities, left leg; I87.8 Other specified disorders of veins; I48.0 Paroxysmal atrial fibrillation; I27.20 Pulmonary hypertension, unspecified; I36.0 Nonrheumatic tricuspid (valve) stenosis; I11.0 Hypertensive heart disease with heart failure; J43.2 Centrilobular emphysema
CPT/HCPCS: 31500; 36415; 36600; 62270; 70450; 71045; 74018; 77003; 80048; 80053; 80202; 81001; 82550; 82553; 82565; 82803; 82945; 82962; 83605; 83690; 83735; 83880; 84100; 84132; 84157; 84439; 84443; 84478; 84481; 84484; 85025; 85027; 85610; 85730; 86738; 86788; 86789; 87040; 87070; 87077; 87086; 87186; 87205; 87493; 87529; 89050; 93005; 93010; 93306; 94002; 94003; 94640; 95819; 96361; 96365; 99291; B4155; C1751; J0133; J0330; J0360; J0696; J1100; J1630; J1642; J1644; J1815; J1940; J2060; J2250; J2270; J2543; J2704; J3010; J3370; J3480; J3490; J7030; J7050; J7060; J7614; S0164